=== PATIENT | male | born 1965 | race Caucasian/White ===

== ENCOUNTER 2020-09-23 10:44 | Inpatient (IN) | payer MEDICAID, SELFPAY ==
[2020-09-23] VITALS (9 sets, daily range): BP systolic 147–193; BP diastolic 79–123; PULSE 71–92; RESP 15–40; TEMP 36.3–37; O2SAT 90–98; BMI 32.0
--- NOTE | 2020-09-23 | ECG_ITS ---
Test Reason : SOB Blood Pressure : / mmHG Vent. Rate : 076 BPM Atrial Rate : 076 BPM P-R Int : 154 ms QRS Dur : 098 ms QT Int : 422 ms P-R-T Axes : 064 034 135 degrees QTc Int : 474 ms Sinus rhythm with Premature atrial complexes Possible Left atrial enlargement Left ventricular hypertrophy T wave abnormality, consider lateral ischemia Prolonged QT Abnormal ECG No previous ECGs available Referred By: Generic ED Physician Electronically Signed By:Angel Main
--- NOTE | ~2020-09-23 | US_ITS ---
EXAMINATION: US VENOUS ULTRASOUND WITH DOPPLER LOWER EXTREMITY, BILATERAL CLINICAL INFORMATION: Possible pulmonary embolism COMPARISON: None TECHNIQUE: Ultrasound of the deep veins is performed from the hip to the calf with compression sonography and color and pulse Doppler assessment. Spectral analysis with color-flow imaging is performed. FINDINGS: RIGHT: There is normal venous compression and respiratory variation and augmented flow. The visualized common femoral vein, superficial femoral vein, profunda femoral vein, popliteal vein, and the trifurcation region shows no evidence of deep venous thrombosis. There is no significant popliteal fossa cyst. LEFT: There is normal venous compression and respiratory variation and augmented flow. The visualized common femoral vein, superficial femoral vein, profunda femoral vein, popliteal vein, and the trifurcation region shows no evidence of deep venous thrombosis. There is no significant popliteal fossa cyst. If the patient's symptoms persist, followup ultrasound in 5 days 7 days might be of value to exclude proximal propagation from a non-visualized calf vein. US/US venous duplex LE BI IMPRESSION: No DVT demonstrated in the bilateral lower extremity.
--- NOTE | ~2020-09-23 | CT_ITS ---
EXAMINATION: CT CHEST ANGIOGRAM PE PROTOCOL CLINICAL INFORMATION: , Hypoxia, tachycardia. COMPARISON: None TECHNIQUE: Volumetric imaging was performed through the chest. Reformatted coronal and sagittal imaging was performed. 3-D MIP images performed at a dedicated separate workstation. This CT examination was performed using dose optimization techniques as appropriate, variously including the following: *Automated exposure control *Adjustment of mA and/or kV according to patient size (this includes techniques or standardized protocols for targeted exams where dose is matched to indication/reason for exam; i.e. extremities or head) *Use of iterative reconstruction technique CONTRAST: IV contrast given. DLP: [id number] FINDINGS: PULMONARY ARTERIES: There are no central emboli there are however nonocclusive small filling defect in distal branches questionable artifact versus a small could be old emboli. The radiologist. LINES/TUBES: None LUNGS: Lung Parenchyma: There are patchy groundglass opacities and centrilobular especially lower lobes, in the right clinical setting concerning for possible atypical infection such as interstitial pneumonia including possible cord 19 versus interstitial edema. Lung Nodules:There is no lung mass. Evaluation for nodules is limited on this CT scan given the abnormalities described. AIRWAYS: Trachea and bronchi are normal. PLEURA: Bilateral small pleural effusions.. MEDIASTINUM AND SOPHIA: The visualized thyroid gland is unremarkable. Mildly prominent lymphatic tissue could be reactive. There is no mediastinal mass. VESSELS: Thoracic aorta is normal in size. HEART AND PERICARDIUM: Heart is enlarged, there is a small pericardial effusion. There are coronary calcifications. CHEST WALL, LOWER NECK, SURROUNDING SOFT TISSUES: Normal VISUALIZED ABDOMEN: Unremarkable BONES: The visualized bony thorax is within normal limits. CT/CT angio chest PE protocol IMPRESSION: 1. There are no large central emboli however there are none occlusive peripheral filling defects in secondary and tertiary branches concerning for possible multiple could be old tiny emboli. Versus artifact. No associated infarct of cardiac strain. 2. Patchy groundglass interstitial opacification especially at the upper portion lower lobes concerning for possible atypical infection including possible viral pneumonia. Aspiration pneumonia. Versus interstitial edema. Please correlate with clinical status. 3. Heart is enlarged, there is a small pericardial effusion 4. Bilateral small pleural effusions. This critical result was discussed with Dr. Jernigan by telephone at 09/23/2020 3:44 PM and it was ascertained that the content and urgency of the report was understood at the time of direct communication.
--- NOTE | ~2020-09-23 | XR_ITS ---
EXAMINATION: XR CHEST CLINICAL INFORMATION: Shortness of breath follow-up COMPARISON: Chest x-ray and CTA chest September 23, 2020 TECHNIQUE: Frontal view of the chest was obtained. FINDINGS: Cardiac silhouette is normal in size. The lungs are adequately aerated. No lobar consolidation. No gross pleural effusion identified on this AP radiograph. No pleural effusion. XR/XR chest 1V IMPRESSION: No gross radiographic abnormality.
--- NOTE | ~2020-09-23 | XR_ITS ---
EXAMINATION: XR CHEST CLINICAL INFORMATION: Shortness of breath, hypoxia COMPARISON: None TECHNIQUE: Frontal view of the chest was obtained. Findings; This exam demonstrates some increased opacities in the right greater than left lung. Some possible Caroli's lines on the right. Asymmetric pulmonary edema would need to be considered versus infiltrate. XR/XR chest 1V IMPRESSION: Increased markings right greater than left lung as described. This could represent infiltrate versus asymmetric pulmonary edema. Attention to follow-up. Ill-definition of the right hilum could be enlargement. Again attention to follow-up
[2020-09-23 11:02] LABS: Glucose, Whole Blood 113 mg/dL (60-115)
--- NOTE | 2020-09-23 11:13 | ED_ITS ---
HPI - SOB/Dyspnea General Chief Complaint: Dyspnea Stated Complaint: sob x 2 days Time Seen by Provider: 09/23/20 11:02 Source: patient and EMS Mode of arrival: EMS Limitations: no limitations History of Present Illness HPI Narrative: 55 y/o male with history of HTN and recurrent bronchitis, active smoker x 30 years who presents to the ER c/o SOB and dry cough that started yesterday. He reports his SOB has gradually been getting worse since yesterday. He slept well last night but woke up at 6 am today and couldn't catch his breath so he called 911. He got the [employer] COVID vaccine about 2 months ago. He has no kno wn exposures to COVID recently or any sick contacts. He denies fever, chills, chest pain, N/V/D, abdominal pain. No leg swelling, no orthopnea, no sputum production. MD elicited complaint: shortness of breath and cough Onset (ago): day(s) (1) Timing: constant Severity: severe Exacerbating factors: nothing Relieving factors: nothing Associated symptoms: cough Treatment prior to arrival: oxygen Related Data Home oxygen amount: none Home Medications Medication Instructions Recorded Confirmed No Known Home Meds 09/23/20 09/23/20 Allergies Allergy/AdvReac Type Severity Reaction Status Date / Time No Known Allergies Allergy Verified 09/23/20 10:56 Review of Systems Constitutional: Constitutional: Denies chills, Denies fever(s) and Denies headache(s) Eyes: Eyes: Reports no additional eye complaints ENT: Denies dizziness, Denies otalgia, Denies headache(s), Denies neck pain and Denies sore throat Cardiovascular: Cardiovascular: Denies chest pain, Denies chest pain at rest, Denies chest pain with activity, Denies pedal edema, Denies leg edema, Reports dyspnea and Reports dyspnea on exertion Respiratory: Respiratory: Reports chest congestion, Reports cough, Denies hemoptysis, Denies excessive phlegm production, Denies pain on inspiration, Denies pain with cough, Reports dyspnea, Reports dyspnea on exertion, Denies stridor and Denies wheezing Gastrointestinal: Gastrointestinal: Denies abdominal pain, Denies diarrhea, Denies nausea and Denies vomiting Genitourinary: Genitourinary: Denies dysuria Musculoskeletal: Musculoskeletal: Denies myalgias and Denies neck pain Integumentary/Breasts: Skin/Breast: Denies rash Neurologic: Denies confusion, Denies dizziness and Denies headache(s) Psychiatric: Psychiatric: Denies anxiety and Denies confusion Hematologic/Lymphatic: Hematologic/Lymphatic: Denies easy bleeding and Denies easy bruising Allergic/Immunologic: Allergic/Immunologic: Denies urticaria and Denies wheezing PMFSH Past Medical History Attestation statement: The following information was validated with the patient. Medical History Cigarette smoker Diabetes HTN (hypertension) Social History Social History Alcohol intake: unknown Patient Tobacco Use Status: Current everyday Tobacco user Use of substances other than those prescribed or required for medical reasons: Unknown Advance Directives: No Advance Directives Information Provided: No Physical Exam Vital Signs: Vital Signs: Last Vital Signs Temp 98.1 F 09/23/20 16:24 Pulse 71 09/23/20 16:24 Resp 18 09/23/20 16:24 BP 159/98 H 09/23/20 16:24 Pulse Ox 96 09/23/20 16:24 Body Mass Index 32.0 Const: General: acute distress moderate and respiratory, diaphoretic and ill appearing acutely; No confusion Nutritional Appearance: average body habitus and well nourished Orientation/consciousness: patient oriented x3 and No confusion HENMT: Head: Yes normal to inspection Ears: hearing grossly normal bilaterally General nose exam: Normal external nose present Face and sinus: Yes normal facial exam Mouth: Normal oral and palatal mucosa present, lip normal, tongue normal, oropharynx normal and moist mucous membranes Teeth and gingiva: dentition normal and gingiva normal Throat: Yes posterior oropharynx normal, Yes tonsils normal and Yes uvula midline Eyes: General: appearance normal, both eyes and all related structures Neck: Neck: Yes normal visual inspection, Yes full ROM and Yes no lymphadenopathy Chest: Chest palpation & inspection: normal inspection of the chest and normal palpation of entire chest wall Resp: Effort & Inspection: Actively coughing Quality: dry, labored, respiratory distress and tachypneic Auscultation: crackles on the right at the base and in the mid lung raman and wheezes expiratory wheezes, lower bilaterally and posterior Cardio: Rate: regular rate Rhythm: regular rhythm Heart sounds: S1 normal heart sound present and S2 normal heart sound present GI: Inspection: Yes normal to inspection Palpation (GI): Soft to palpation and nontender Percussion: Yes normal to percussion Auscultation: normal bowel sounds Rectal Exam - Male: Yes deferred Skin: General skin exam: no rashes or lesions noted Neuro: General: patient oriented x3 and No confusion Extrem: General: Yes normal to inspection, Yes full ROM, Yes no joint enlargement, Yes no pedal edema and Yes no calf tenderness Psych: Appearance: grossly normal and well kempt Mental Status: mental status grossly normal Speech and movement: Normal speech and movement present Course Course Course Narrative: 55 y/o male with history of HTN (not on meds), active heavy smoker (no formal dx COPD) presenting with SOB that started yesterday and gradually got worse. Today couldnt no catch his breath so called 911. Associated with dry cough but denies all other complaints. He arrived to the ER tachypenic to 40 with crackles, wheezing and coarseness on exam. Respiratory called for stat neb, IV medrol ordered. CXR, EKG, labs ordered. He is currently on 4L NC saturating 96%. Was 90% for EMS. May require BiPAP if no improvement. Reevaluation(s) Reevaluation #1: Improved RR after neb and steroids. RR stil high 20s but he is starting to feel better. On 4L NC with SpO2 98%. No leukocytosis. BNP 1300 with no history of CHF. Troponin 40, no chest pain. No STEMI on EKG. CXR still pending. Will give dose of IV lasix, start with 20 mg given he is naive. Reevaluation #2: CXR with R>L interstitial markings. ?asymmetrical pulmonary edema. Will get CT scan for further evaluation of heart and lungs. Fio2 weaned to 2L and his respiratory status is improved. Reevaluation #3: CTA with patchy GGO of lower lobes - viral PNA vs pulm edema. COVID test is negative. Also with question of distal subsegmental tiny PEs vs artifact. Will get DDIMER and LE dopplers, hold off on anticoagulation for now, these would not be causing his SOB. Lactic acid went from 2 to 4 most likely due to albuterol nebulizer treatment. He is not septic. He is not hypotensive or having any abdominal pain to suggest mesenteric ischemia. Will hold off on IVF in the setting of acute CHF and plan t o repeat the lactic acid in a few hours. Additional Reevaluation(s): Spoke with patient and his family at length about labs and results, concern for new heart failure and finding the cause of this. Eventually patient is agreeable to admission for further treatment and workup. Spoke with Dr. Manning who will admit the patient. Consultations Consultation #1: Cardiology - Dr. Main - will see patient tomorrow, needs ECHO MDM - SOB/Dyspnea Medical Records Attestation: I reviewed the patient's medical records. Lab Data Attestation: I reviewed the patient's lab results. Result diagrams: 09/23/20 12:15 09/23/20 12:15 Labs: Lab Results 09/23/20 09/23/20 09/23/20 Range/Units 10:54 12:15 12:15 WBC 9.7 (4.8-10.8) X10*3/uL RBC 4.81 (4.60-5.80) X10*6/uL Hgb 14.6 (14.0-18.0) g/dl Hct 46.0 (42-52) % MCV 95.6 (80-98) fL MCH 30.4 (27.0-33.0) pg MCHC 31.7 (31.0-36.0) g/dl RDW 13.6 (11.0-16.0) % Plt Count 196 (160-400) X10*3/uL MPV 12.5 H (9.4-12.4) fL Immature Gran % (Auto) 0.3 (0.0-0.4) % Neut % (Auto) 76.7 H (45-73) % Lymph % (Auto) 16.7 L (20-40) % [place] % (Auto) 4.7 (2-11) % Eos % (Auto) 1.2 (0-4) % Baso % (Auto) 0.4 (0-2) % Lymph # (Auto) 1.6 (1.2-4.9) X10*3/uL [place] # (Auto) 0.5 (0.1-1.2) X10*3/uL Eos # (Auto) 0.1 (0.0-0.4) X10*3/uL Baso # (Auto) 0.0 (0.0-0.2) X10*3/uL Abs Immat Gran (auto) 0.03 (0.00-0.03) X10*3/uL Absolute Neuts (auto) 7.5 (2.0-8.3) X10*3/uL Absolute Nucleated RBC 0.000 (0.0-0.012) X10*3/uL Nucleated RBC % (auto) 0.0 (0.0-0.2) /100WBC PT (9.9-13.0) SEC INR (0.9-1.1) APTT (24.1-38.0) SEC D-Dimer NG/ML VBG pH (7.32-7.43) VBG pCO2 mmHg VBG pO2 mmHg VBG HCO3 (22-26) mmol/L VBG O2 Saturation % VBG Base Excess mmol/L Sodium 143 (135-145) mmol/L Potassium 4.0 (3.3-5.1) mmol/L Chloride 105 (96-108) mmol/L Carbon Dioxide 28 (22-29) mmol/L Anion Gap 14 (12-20) BUN 22 H (9-16) mg/dL Creatinine 1.03 (0.5-1.4) mg/dL Estim Creat Clear Calc 73.9 Estimated GFR > 60 POC Glucose 113 (60-115) mg/dL Random Glucose 141 H (60-115) mg/dL Lactic Acid (0.5-2.0) mmol/L Lactic Acid Fup @ 2Hr (0.5-2.0) mmol/L Calcium 9.4 (8.4-10.2) mg/dL Magnesium 1.6 (1.6-2.6) mg/dL Total Bilirubin 0.3 (0.0-1.0) mg/dL Direct Bilirubin 0.2 (0.0-0.5) mg/dL AST 20 (5-37) U/L ALT 25 (0-40) U/L Alkaline Phosphatase 112 (39-117) U/L Troponin I High Sens (<3.5-35.0) ng/L C-Reactive Protein (< or = 0.50) mg/dL B-Natriuretic Peptide (<100) pg/mL Total Protein 7.3 (6.5-8.0) g/dL Albumin 4.4 (3.5-5.0) g/dL Procalcitonin ng/mL Urine Color Urine Appearance Urine pH (5.0-8.0) Ur Specific [place] (1.005-1.025) Urine Protein (NEG-TRACE) MG/DL Urine Glucose (UA) (NEG) MG/DL Urine Ketones (NEG) MG/DL Urine Blood (NEG) Urine Nitrite (NEG) Ur Leukocyte Esterase (NEG) Urine RBC (0) /HPF Urine WBC (0-4) /HPF Ur Squamous Epith Cells /LPF Urine Bacteria /LPF Urine Mucus /LPF Coronavirus (PCR) (Negative) Influenza Type A (PCR) (Negative) Influenza Type B (PCR) (Negative) RSV RNA Qual (PCR) (Negative) 09/23/20 09/23/20 09/23/20 Range/Units 12:15 12:15 12:15 WBC (4.8-10.8) X10*3/uL RBC (4.60-5.80) X10*6/uL Hgb (14.0-18.0) g/dl Hct (42-52) % MCV (80-98) fL MCH (27.0-33.0) pg MCHC (31.0-36.0) g/dl RDW (11.0-16.0) % Plt Count (160-400) X10*3/uL MPV (9.4-12.4) fL Immature Gran % (Auto) (0.0-0.4) % Neut % (Auto) (45-73) % Lymph % (Auto) (20-40) % [place] % (Auto) (2-11) % Eos % (Auto) (0-4) % Baso % (Auto) (0-2) % Lymph # (Auto) (1.2-4.9) X10*3/uL [place] # (Auto) (0.1-1.2) X10*3/uL Eos # (Auto) (0.0-0.4) X10*3/uL Baso # (Auto) (0.0-0.2) X10*3/uL Abs Immat Gran (auto) (0.00-0.03) X10*3/uL Absolute Neuts (auto) (2.0-8.3) X10*3/uL Absolute Nucleated RBC (0.0-0.012) X10*3/uL Nucleated RBC % (auto) (0.0-0.2) /100WBC PT (9.9-13.0) SEC INR (0.9-1.1) APTT (24.1-38.0) SEC D-Dimer NG/ML VBG pH (7.32-7.43) VBG pCO2 mmHg VBG pO2 mmHg VBG HCO3 (22-26) mmol/L VBG O2 Saturation % VBG Base Excess mmol/L Sodium (135-145) mmol/L Potassium (3.3-5.1) mmol/L Chloride (96-108) mmol/L Carbon Dioxide (22-29) mmol/L Anion Gap (12-20) BUN (9-16) mg/dL Creatinine (0.5-1.4) mg/dL Estim Creat Clear Calc Estimated GFR POC Glucose (60-115) mg/dL Random Glucose (60-115) mg/dL Lactic Acid (0.5-2.0) mmol/L Lactic Acid Fup @ 2Hr (0.5-2.0) mmol/L Calcium (8.4-10.2) mg/dL Magnesium (1.6-2.6) mg/dL Total Bilirubin (0.0-1.0) mg/dL Direct Bilirubin (0.0-0.5) mg/dL AST (5-37) U/L ALT (0-40) U/L Alkaline Phosphatase (39-117) U/L Troponin I High Sens 40.8 H* (<3.5-35.0) ng/L C-Reactive Protein 0.07 (< or = 0.50) mg/dL B-Natriuretic Peptide 1379 H (<100) pg/mL Total Protein (6.5-8.0) g/dL Albumin (3.5-5.0) g/dL Procalcitonin 0.04 ng/mL Urine Color Urine Appearance Urine pH (5.0-8.0) Ur Specific [place] (1.005-1.025) Urine Protein (NEG-TRACE) MG/DL Urine Glucose (UA) (NEG) MG/DL Urine Ketones (NEG) MG/DL Urine Blood (NEG) Urine Nitrite (NEG) Ur Leukocyte Esterase (NEG) Urine RBC (0) /HPF Urine WBC (0-4) /HPF Ur Squamous Epith Cells /LPF Urine Bacteria /LPF Urine Mucus /LPF Coronavirus (PCR) (Negative) Influenza Type A (PCR) (Negative) Influenza Type B (PCR) (Negative) RSV RNA Qual (PCR) (Negative) 09/23/20 09/23/20 09/23/20 Range/Units 12:16 12:19 12:21 WBC (4.8-10.8) X10*3/uL RBC (4.60-5.80) X10*6/uL Hgb (14.0-18.0) g/dl Hct (42-52) % MCV (80-98) fL MCH (27.0-33.0) pg MCHC (31.0-36.0) g/dl RDW (11.0-16.0) % Plt Count (160-400) X10*3/uL MPV (9.4-12.4) fL Immature Gran % (Auto) (0.0-0.4) % Neut % (Auto) (45-73) % Lymph % (Auto) (20-40) % [place] % (Auto) (2-11) % Eos % (Auto) (0-4) % Baso % (Auto) (0-2) % Lymph # (Auto) (1.2-4.9) X10*3/uL [place] # (Auto) (0.1-1.2) X10*3/uL Eos # (Auto) (0.0-0.4) X10*3/uL Baso # (Auto) (0.0-0.2) X10*3/uL Abs Immat Gran (auto) (0.00-0.03) X10*3/uL Absolute Neuts (auto) (2.0-8.3) X10*3/uL Absolute Nucleated RBC (0.0-0.012) X10*3/uL Nucleated RBC % (auto) (0.0-0.2) /100WBC PT (9.9-13.0) SEC INR (0.9-1.1) APTT (24.1-38.0) SEC D-Dimer NG/ML VBG pH (7.32-7.43) VBG pCO2 mmHg VBG pO2 mmHg VBG HCO3 (22-26) mmol/L VBG O2 Saturation % VBG Base Excess mmol/L Sodium (135-145) mmol/L Potassium (3.3-5.1) mmol/L Chloride (96-108) mmol/L Carbon Dioxide (22-29) mmol/L Anion Gap (12-20) BUN (9-16) mg/dL Creatinine (0.5-1.4) mg/dL Estim Creat Clear Calc Estimated GFR POC Glucose (60-115) mg/dL Random Glucose (60-115) mg/dL Lactic Acid 2.1 H* (0.5-2.0) mmol/L Lactic Acid Fup @ 2Hr (0.5-2.0) mmol/L Calcium (8.4-10.2) mg/dL Magnesium (1.6-2.6) mg/dL Total Bilirubin (0.0-1.0) mg/dL Direct Bilirubin (0.0-0.5) mg/dL AST (5-37) U/L ALT (0-40) U/L Alkaline Phosphatase (39-117) U/L Troponin I High Sens (<3.5-35.0) ng/L C-Reactive Protein (< or = 0.50) mg/dL B-Natriuretic Peptide (<100) pg/mL Total Protein (6.5-8.0) g/dL Albumin (3.5-5.0) g/dL Procalcitonin ng/mL Urine Color YELLOW Urine Appearance CLEAR Urine pH 6.0 (5.0-8.0) Ur Specific [place] 1.020 (1.005-1.025) Urine Protein TRACE (NEG-TRACE) MG/DL Urine Glucose (UA) NEG (NEG) MG/DL Urine Ketones NEG (NEG) MG/DL Urine Blood TRACE (NEG) Urine Nitrite NEG (NEG) Ur Leukocyte Esterase NEG (NEG) Urine RBC 1-4 (0) /HPF Urine WBC 0-2 (0-4) /HPF Ur Squamous Epith Cells TRACE /LPF Urine Bacteria NONE /LPF Urine Mucus TRACE /LPF Coronavirus (PCR) NEGATIVE (Negative) Influenza Type A (PCR) NEGATIVE (Negative) Influenza Type B (PCR) NEGATIVE (Negative) RSV RNA Qual (PCR) NEGATIVE (Negative) 09/23/20 09/23/20 09/23/20 Range/Units 13:31 14:46 16:17 WBC (4.8-10.8) X10*3/uL RBC (4.60-5.80) X10*6/uL Hgb (14.0-18.0) g/dl Hct (42-52) % MCV (80-98) fL MCH (27.0-33.0) pg MCHC (31.0-36.0) g/dl RDW (11.0-16.0) % Plt Count (160-400) X10*3/uL MPV (9.4-12.4) fL Immature Gran % (Auto) (0.0-0.4) % Neut % (Auto) (45-73) % Lymph % (Auto) (20-40) % [place] % (Auto) (2-11) % Eos % (Auto) (0-4) % Baso % (Auto) (0-2) % Lymph # (Auto) (1.2-4.9) X10*3/uL [place] # (Auto) (0.1-1.2) X10*3/uL Eos # (Auto) (0.0-0.4) X10*3/uL Baso # (Auto) (0.0-0.2) X10*3/uL Abs Immat Gran (auto) (0.00-0.03) X10*3/uL Absolute Neuts (auto) (2.0-8.3) X10*3/uL Absolute Nucleated RBC (0.0-0.012) X10*3/uL Nucleated RBC % (auto) (0.0-0.2) /100WBC PT (9.9-13.0) SEC INR (0.9-1.1) APTT (24.1-38.0) SEC D-Dimer NG/ML VBG pH 7.42 (7.32-7.43) VBG pCO2 37 mmHg VBG pO2 63 mmHg VBG HCO3 24 (22-26) mmol/L VBG O2 Saturation 90.0 % VBG Base Excess 0.5 mmol/L Sodium (135-145) mmol/L Potassium (3.3-5.1) mmol/L Chloride (96-108) mmol/L Carbon Dioxide (22-29) mmol/L Anion Gap (12-20) BUN (9-16) mg/dL Creatinine (0.5-1.4) mg/dL Estim Creat Clear Calc Estimated GFR POC Glucose (60-115) mg/dL Random Glucose (60-115) mg/dL Lactic Acid (0.5-2.0) mmol/L Lactic Acid Fup @ 2Hr 4.2 H* (0.5-2.0) mmol/L Calcium (8.4-10.2) mg/dL Magnesium (1.6-2.6) mg/dL Total Bilirubin (0.0-1.0) mg/dL Direct Bilirubin (0.0-0.5) mg/dL AST (5-37) U/L ALT (0-40) U/L Alkaline Phosphatase (39-117) U/L Troponin I High Sens 33.1 (<3.5-35.0) ng/L C-Reactive Protein (< or = 0.50) mg/dL B-Natriuretic Peptide (<100) pg/mL Total Protein (6.5-8.0) g/dL Albumin (3.5-5.0) g/dL Procalcitonin ng/mL Urine Color Urine Appearance Urine pH (5.0-8.0) Ur Specific [place] (1.005-1.025) Urine Protein (NEG-TRACE) MG/DL Urine Glucose (UA) (NEG) MG/DL Urine Ketones (NEG) MG/DL Urine Blood (NEG) Urine Nitrite (NEG) Ur Leukocyte Esterase (NEG) Urine RBC (0) /HPF Urine WBC (0-4) /HPF Ur Squamous Epith Cells /LPF Urine Bacteria /LPF Urine Mucus /LPF Coronavirus (PCR) (Negative) Influenza Type A (PCR) (Negative) Influenza Type B (PCR) (Negative) RSV RNA Qual (PCR) (Negative) 09/23/20 Range/Units 16:17 WBC (4.8-10.8) X10*3/uL RBC (4.60-5.80) X10*6/uL Hgb (14.0-18.0) g/dl Hct (42-52) % MCV (80-98) fL MCH (27.0-33.0) pg MCHC (31.0-36.0) g/dl RDW (11.0-16.0) % Plt Count (160-400) X10*3/uL MPV (9.4-12.4) fL Immature Gran % (Auto) (0.0-0.4) % Neut % (Auto) (45-73) % Lymph % (Auto) (20-40) % [place] % (Auto) (2-11) % Eos % (Auto) (0-4) % Baso % (Auto) (0-2) % Lymph # (Auto) (1.2-4.9) X10*3/uL [place] # (Auto) (0.1-1.2) X10*3/uL Eos # (Auto) (0.0-0.4) X10*3/uL Baso # (Auto) (0.0-0.2) X10*3/uL Abs Immat Gran (auto) (0.00-0.03) X10*3/uL Absolute Neuts (auto) (2.0-8.3) X10*3/uL Absolute Nucleated RBC (0.0-0.012) X10*3/uL Nucleated RBC % (auto) (0.0-0.2) /100WBC PT 12.4 (9.9-13.0) SEC INR 1.1 (0.9-1.1) APTT 23.9 L (24.1-38.0) SEC D-Dimer 231 NG/ML VBG pH (7.32-7.43) VBG pCO2 mmHg VBG pO2 mmHg VBG HCO3 (22-26) mmol/L VBG O2 Saturation % VBG Base Excess mmol/L Sodium (135-145) mmol/L Potassium (3.3-5.1) mmol/L Chloride (96-108) mmol/L Carbon Dioxide (22-29) mmol/L Anion Gap (12-20) BUN (9-16) mg/dL Creatinine (0.5-1.4) mg/dL Estim Creat Clear Calc Estimated GFR POC Glucose (60-115) mg/dL Random Glucose (60-115) mg/dL Lactic Acid (0.5-2.0) mmol/L Lactic Acid Fup @ 2Hr (0.5-2.0) mmol/L Calcium (8.4-10.2) mg/dL Magnesium (1.6-2.6) mg/dL Total Bilirubin (0.0-1.0) mg/dL Direct Bilirubin (0.0-0.5) mg/dL AST (5-37) U/L ALT (0-40) U/L Alkaline Phosphatase (39-117) U/L Troponin I High Sens (<3.5-35.0) ng/L C-Reactive Protein (< or = 0.50) mg/dL B-Natriuretic Peptide (<100) pg/mL Total Protein (6.5-8.0) g/dL Albumin (3.5-5.0) g/dL Procalcitonin ng/mL Urine Color Urine Appearance Urine pH (5.0-8.0) Ur Specific [place] (1.005-1.025) Urine Protein (NEG-TRACE) MG/DL Urine Glucose (UA) (NEG) MG/DL Urine Ketones (NEG) MG/DL Urine Blood (NEG) Urine Nitrite (NEG) Ur Leukocyte Esterase (NEG) Urine RBC (0) /HPF Urine WBC (0-4) /HPF Ur Squamous Epith Cells /LPF Urine Bacteria /LPF Urine Mucus /LPF Coronavirus (PCR) (Negative) Influenza Type A (PCR) (Negative) Influenza Type B (PCR) (Negative) RSV RNA Qual (PCR) (Negative) ECG Data Attestation: I personally reviewed and interpreted this ECG as follows: ECG interpretation date: 09/23/20 ECG interpretation time: 14:30 Interpretation: normal sinus rhythm, HR 76 bpm, t-wave inversions in leads I, II, aVL. LVH. no ST segment elevations. Critical Care Time Critical Care Time Critical Care Time: Yes Total Critical Care Time: 60 Attestation: I have personally provided critical care time exclusive of time spent on separately billable procedures. Time includes review of lab data, radiology results, discussion with consultants, and monitoring for potential decompensation. Intervention performed as documented. Discharge Plan Discharge Clinical Impression: Acute heart failure, Acute respiratory failure with hypoxia, Elevated lactic acid level Patient Disposition: Admitted As Inpatient Prescriptions: No Action No Known Home Meds RF: 0
[2020-09-23] MEDS: Albuterol Sulfate (0.083%) 2.5 MG/3 ML VIAL.NEB 10 MG INHALE (11:18)
[2020-09-23] MEDS: methylPREDNISolone Sod Succ 125 MG/2 ML VIAL IVPUSH (12:01)
[2020-09-23 12:31] LABS: MANUAL DIFF FLAG NO
[2020-09-23 12:34] LABS: Basophils Percent Auto 0.4 % (0-2); Eosinophils Absolute Auto 0.1 X10*3/uL (0.0-0.4); Eosinophils Percent Auto 1.2 % (0-4); Hemoglobin 14.6 g/dl (14.0-18.0); Imm Gran Abs Auto 0.03 X10*3/uL (0.00-0.03); Imm Gran Pct Auto 0.3 % (0.0-0.4); Lymphocytes Absolute Auto 1.6 X10*3/uL (1.2-4.9); Lymphocytes Percent Auto 16.7 % (20-40); Mean Corpuscular HGB Conc 31.7 g/dl (31.0-36.0); Mean Corpuscular Hemoglobin 30.4 pg (27.0-33.0); Mean Corpuscular Volume 95.6 fL (80-98); Mean Platelet Volume 12.5 fL (9.4-12.4); Monocytes Absolute Auto 0.5 X10*3/uL (0.1-1.2); Monocytes Percent Auto 4.7 % (2-11); Neutrophils Absolute Auto 7.5 X10*3/uL (2.0-8.3); Neutrophils Percent Auto 76.7 % (45-73); Platelet Count 196 X10*3/uL (160-400); Red Blood Count 4.81 X10*6/uL (4.60-5.80); Red Cell Distribution Width 13.6 % (11.0-16.0); White Blood Count 9.7 X10*3/uL (4.8-10.8)
[2020-09-23 12:43] LABS: Appearance Urine CLEAR; Color Urine YELLOW; Glucose Urine UA NEG (NEG); Leukocyte Esterase Urine NEG (NEG); Nitrite Urine NEG (NEG); UACC Culture Trigger NO; Urine Blood TRACE (NEG); Urine Ketones NEG (NEG); Urine Protein TRACE MG/DL (NEG-TRACE)
[2020-09-23 12:51] LABS: Mucus Urine TRACE /LPF; Squamous Epithelial Cell Urine TRACE /LPF; WBC Urine 0-2 /HPF (0-4)
[2020-09-23 12:59] LABS: Lactic Acid 2.1 mmol/L (0.5-2.0)
[2020-09-23 13:01] LABS: C Reactive Protein 0.07 mg/dL (< or = 0.50)
[2020-09-23 13:06] LABS: Alanine Aminotransferase 25 U/L (0-40); Albumin Level 4.4 g/dL (3.5-5.0); Alkaline Phosphatase 112 U/L (39-117); Anion Gap 14 (12-20); Aspartate Amino Transferase 20 U/L (5-37); Bilirubin Direct 0.2 mg/dL (0.0-0.5); Bilirubin Total 0.3 mg/dL (0.0-1.0); Blood Urea Nitrogen 22 mg/dL (9-16); Calcium 9.4 mg/dL (8.4-10.2); Carbon Dioxide 28 mmol/L (22-29); Chloride 105 mmol/L (96-108); Creatinine Clr Calc Pharmacy 73.9; Estimated Glomerular Filt Rate > 60; Glucose Random 141 mg/dL (60-115); Magnesium 1.6 mg/dL (1.6-2.6); Sodium 143 mmol/L (135-145); Total Protein 7.3 g/dL (6.5-8.0)
[2020-09-23 13:11] LABS: B Type Natriuretic Peptide 1379 pg/mL (<100); Troponin-I High Sensitivity 40.8 ng/L (<3.5-35.0)
[2020-09-23 13:17] LABS: Influenza A PCR NEGATIVE (Negative); Influenza B PCR NEGATIVE (Negative); Resp Syncy Virus RNA Qual PCR NEGATIVE (Negative); SARS COV2 PCR INHOUSE NEGATIVE (Negative)
[2020-09-23 13:24] LABS: Procalcitonin 0.04 ng/mL
[2020-09-23 13:38] LABS: Venous Blood Gas Refer to POC result
[2020-09-23 13:39] LABS: VBG Base Excess 0.5 mmol/L; VBG HCO3 24 mmol/L (22-26); VBG pCO2 37 mmHg; VBG pH 7.42 (7.32-7.43); VBG pO2 63 mmHg
[2020-09-23] MEDS: Furosemide 20 MG/2 ML VIAL IVPUSH (13:55)
[2020-09-23] MEDS: 0.9 % Sodium Chloride 1,000 ML 999 ML IVCONT (13:55)
[2020-09-23 14:27] LABS: Reflex Lactate? Lactic Acid Added
[2020-09-23] MEDS: iohexoL 350 MG/ML 100 ML INFUS..BTL 85 ML IV (15:12)
[2020-09-23 15:21] LABS: ~Lactic Acid-LAB USE ONLY 4.2 mmol/L (0.5-2.0)
[2020-09-23 16:32] LABS: INTERNATIONAL NORM RATIO 1.1 (0.9-1.1); Prothrombin Time 12.4 SEC (9.9-13.0)
[2020-09-23 16:35] LABS: D Dimer 231 NG/ML
[2020-09-23 16:38] LABS: Partial Thromboplastin Time 23.9 SEC (24.1-38.0)
[2020-09-23 16:48] LABS: Reflex Lactate? 2 Y
[2020-09-23 16:58] LABS: Troponin-I High Sensitivity 33.1 ng/L (<3.5-35.0)
--- NOTE | 2020-09-23 17:30 | PM.IMHP ---
History of Present Illness Date of Service: 09/23/20 Chief Complaint: sob 55M non compliant, history of enlarged heart reports 2 days of shortness of breath, worse on exertion, positive orthopnea, denies chest pain, denies n/v/d, denies fever/chills. daughter reports patient has had multiple similar episodes. 4 years ptp was told he had an enlarged heart , but did not follow up. currently not on meds. history of cocaine, but reports abstienance. in ED found to have elevated bnp, CTA with bilateral patchy ground glass opacities, cardiomegaly, small pericardial effusion, EKG with LVH. given lasix and symptoms have improved. Review of Systems Review of Systems: Constitutional: Denies fever, denies Chills Eyes: denies blurry vision ENT: denies sore throat CVS: denies chest pain Respiratory: dyspnea GI: no abdominal pain : denies dysuria MSK: denies neck pain Skin: denies rash Neuro: denies specific motor weakness Psych: denies suicidal ideation Endocrine: denies heat/cold intolerance Hematologic: denies easy bleeding Allergy: denies hives PMFSH Medical History Cardiomyopathy Cigarette smoker Diabetes HTN (hypertension) Family history: reviewed and not pertinent Social History Alcohol intake: unknown Patient Tobacco Use Status: Current everyday Tobacco user Use of substances other than those prescribed or required for medical reasons: Unknown Advance Directives: No Advance Directives Information Provided: No Meds Allergies Allergy/AdvReac Type Severity Reaction Status Date / Time No Known Allergies Allergy Verified 09/23/20 10:56 Active Medications: Current Medications Generic Name Dose Route Start Last Admin Trade Name Freq PRN Reason Stop Dose Admin Enoxaparin Sodium 40 mg 09/23/20 17:30 Enoxaparin Sodium 40 Mg/0.4 Ml Syringe SUBCUT Q24H [facility] Furosemide 40 mg 09/23/20 18:00 Furosemide 40 Mg/4 Ml Vial IVPUSH BID@[id number],1800 [facility] Protocol Sodium Chloride 3 ml 09/24/20 00:00 0.9 % Sodium Chloride Flush 3 Ml Syringe IVFLUSH QSHIFT [facility] Home Medications Medication Instructions Recorded Confirmed Last Taken Type No Known Home Meds 09/23/20 09/23/20 Unknown History Physical Exam Vital Signs and Narrative: Vital Signs: Last Vital Signs Temp 98.1 F 09/23/20 16:24 Pulse 71 09/23/20 16:24 Resp 18 09/23/20 16:24 BP 159/98 H 09/23/20 16:24 Pulse Ox 96 09/23/20 16:24 Body Mass Index 32.0 General: no acute distress HEENT: atraumatic Neck: normal to visual inspection CVS: S1, S2, RRR, +jvd, no edema Resp: Crackles Chest: non tender GI: soft, non tender, non distended : no CVA tenderness Skin: no rashes Extremities: no edema Neuro: Oriented X3, grossly intact Psych: cooperative Results Labs CBC and Chem 7: 09/23/20 12:15 09/23/20 12:15 Labs: Laboratory Results - last 24 hr 09/23/20 09/23/20 09/23/20 10:54 12:15 12:15 MCV 95.6 MCH 30.4 MCHC 31.7 RDW 13.6 Plt Count 196 MPV 12.5 H Immature Gran % (Auto) 0.3 Neut % (Auto) 76.7 H Lymph % (Auto) 16.7 L Woodson % (Auto) 4.7 Eos % (Auto) 1.2 Baso % (Auto) 0.4 Lymph # (Auto) 1.6 Woodson # (Auto) 0.5 Eos # (Auto) 0.1 Baso # (Auto) 0.0 Abs Immat Gran (auto) 0.03 Absolute Neuts (auto) 7.5 Absolute Nucleated RBC 0.000 Nucleated RBC % (auto) 0.0 PT INR APTT D-Dimer VBG pH VBG pCO2 VBG pO2 VBG HCO3 VBG O2 Saturation VBG Base Excess Anion Gap 14 Estim Creat Clear Calc 73.9 Estimated GFR > 60 POC Glucose 113 Random Glucose 141 H Lactic Acid Lactic Acid Fup @ 2Hr Calcium 9.4 Magnesium 1.6 Total Bilirubin 0.3 Direct Bilirubin 0.2 AST 20 ALT 25 Alkaline Phosphatase 112 Troponin I High Sens C-Reactive Protein B-Natriuretic Peptide Total Protein 7.3 Albumin 4.4 Procalcitonin Urine Color Urine Appearance Urine pH Ur Specific [place] Urine Protein Urine Glucose (UA) Urine Ketones Urine Blood Urine Nitrite Ur Leukocyte Esterase Urine RBC Urine WBC Ur Squamous Epith Cells Urine Bacteria Urine Mucus Coronavirus (PCR) Influenza Type A (PCR) Influenza Type B (PCR) RSV RNA Qual (PCR) 09/23/20 09/23/20 09/23/20 12:15 12:15 12:15 MCV MCH MCHC RDW Plt Count MPV Immature Gran % (Auto) Neut % (Auto) Lymph % (Auto) Woodson % (Auto) Eos % (Auto) Baso % (Auto) Lymph # (Auto) [place]son # (Auto) Eos # (Auto) Baso # (Auto) Abs Immat Gran (auto) Absolute Neuts (auto) Absolute Nucleated RBC Nucleated RBC % (auto) PT INR APTT D-Dimer VBG pH VBG pCO2 VBG pO2 VBG HCO3 VBG O2 Saturation VBG Base Excess Anion Gap Estim Creat Clear Calc Estimated GFR POC Glucose Random Glucose Lactic Acid Lactic Acid Fup @ 2Hr Calcium Magnesium Total Bilirubin Direct Bilirubin AST ALT Alkaline Phosphatase Troponin I High Sens 40.8 H* C-Reactive Protein 0.07 B-Natriuretic Peptide 1379 H Total Protein Albumin Procalcitonin 0.04 Urine Color Urine Appearance Urine pH Ur Specific [place] Urine Protein Urine Glucose (UA) Urine Ketones Urine Blood Urine Nitrite Ur Leukocyte Esterase Urine RBC Urine WBC Ur Squamous Epith Cells Urine Bacteria Urine Mucus Coronavirus (PCR) Influenza Type A (PCR) Influenza Type B (PCR) RSV RNA Qual (PCR) 09/23/20 09/23/20 09/23/20 12:16 12:19 12:21 MCV MCH MCHC RDW Plt Count MPV Immature Gran % (Auto) Neut % (Auto) Lymph % (Auto) [place] % (Auto) Eos % (Auto) Baso % (Auto) Lymph # (Auto) [place]son # (Auto) Eos # (Auto) Baso # (Auto) Abs Immat Gran (auto) Absolute Neuts (auto) Absolute Nucleated RBC Nucleated RBC % (auto) PT INR APTT D-Dimer VBG pH VBG pCO2 VBG pO2 VBG HCO3 VBG O2 Saturation VBG Base Excess Anion Gap Estim Creat Clear Calc Estimated GFR POC Glucose Random Glucose Lactic Acid 2.1 H* Lactic Acid Fup @ 2Hr Calcium Magnesium Total Bilirubin Direct Bilirubin AST ALT Alkaline Phosphatase Troponin I High Sens C-Reactive Protein B-Natriuretic Peptide Total Protein Albumin Procalcitonin Urine Color YELLOW Urine Appearance CLEAR Urine pH 6.0 Ur Specific [place] 1.020 Urine Protein TRACE Urine Glucose (UA) NEG Urine Ketones NEG Urine Blood TRACE Urine Nitrite NEG Ur Leukocyte Esterase NEG Urine RBC 1-4 Urine WBC 0-2 Ur Squamous Epith Cells TRACE Urine Bacteria NONE Urine Mucus TRACE Coronavirus (PCR) NEGATIVE Influenza Type A (PCR) NEGATIVE Influenza Type B (PCR) NEGATIVE RSV RNA Qual (PCR) NEGATIVE 09/23/20 09/23/20 09/23/20 13:31 14:46 16:17 MCV MCH MCHC RDW Plt Count MPV Immature Gran % (Auto) Neut % (Auto) Lymph % (Auto) [place] % (Auto) Eos % (Auto) Baso % (Auto) Lymph # (Auto) [place] # (Auto) Eos # (Auto) Baso # (Auto) Abs Immat Gran (auto) Absolute Neuts (auto) Absolute Nucleated RBC Nucleated RBC % (auto) PT INR APTT D-Dimer VBG pH 7.42 VBG pCO2 37 VBG pO2 63 VBG HCO3 24 VBG O2 Saturation 90.0 VBG Base Excess 0.5 Anion Gap Estim Creat Clear Calc Estimated GFR POC Glucose Random Glucose Lactic Acid Lactic Acid Fup @ 2Hr 4.2 H* Calcium Magnesium Total Bilirubin Direct Bilirubin AST ALT Alkaline Phosphatase Troponin I High Sens 33.1 C-Reactive Protein B-Natriuretic Peptide Total Protein Albumin Procalcitonin Urine Color Urine Appearance Urine pH Ur Specific [place] Urine Protein Urine Glucose (UA) Urine Ketones Urine Blood Urine Nitrite Ur Leukocyte Esterase Urine RBC Urine WBC Ur Squamous Epith Cells Urine Bacteria Urine Mucus Coronavirus (PCR) Influenza Type A (PCR) Influenza Type B (PCR) RSV RNA Qual (PCR) 09/23/20 16:17 MCV MCH MCHC RDW Plt Count MPV Immature Gran % (Auto) Neut % (Auto) Lymph % (Auto) [place] % (Auto) Eos % (Auto) Baso % (Auto) Lymph # (Auto) [place] # (Auto) Eos # (Auto) Baso # (Auto) Abs Immat Gran (auto) Absolute Neuts (auto) Absolute Nucleated RBC Nucleated RBC % (auto) PT 12.4 INR 1.1 APTT 23.9 L D-Dimer 231 VBG pH VBG pCO2 VBG pO2 VBG HCO3 VBG O2 Saturation VBG Base Excess Anion Gap Estim Creat Clear Calc Estimated GFR POC Glucose Random Glucose Lactic Acid Lactic Acid Fup @ 2Hr Calcium Magnesium Total Bilirubin Direct Bilirubin AST ALT Alkaline Phosphatase Troponin I High Sens C-Reactive Protein B-Natriuretic Peptide Total Protein Albumin Procalcitonin Urine Color Urine Appearance Urine pH Ur Specific [place] Urine Protein Urine Glucose (UA) Urine Ketones Urine Blood Urine Nitrite Ur Leukocyte Esterase Urine RBC Urine WBC Ur Squamous Epith Cells Urine Bacteria Urine Mucus Coronavirus (PCR) Influenza Type A (PCR) Influenza Type B (PCR) RSV RNA Qual (PCR) Imaging Radiologist's Impressions: Impressions Chest X-Ray 09/23/20 11:02 IMPRESSION: Increased markings right greater than left lung as described. This could represent infiltrate versus asymmetric pulmonary edema. Attention to follow-up. Ill-definition of the right hilum could be enlargement. Again attention to follow-up Chest CTA 09/23/20 13:49 IMPRESSION: 1. There are no large central emboli however there are none occlusive peripheral filling defects in secondary and tertiary branches concerning for possible multiple could be old tiny emboli. Versus artifact. No associated infarct of cardiac strain. 2. Patchy groundglass interstitial opacification especially at the upper portion lower lobes concerning for possible atypical infection including possible viral pneumonia. Aspiration pneumonia. Versus interstitial edema. Please correlate with clinical status. 3. Heart is enlarged, there is a small pericardial effusion 4. Bilateral small pleural effusions. This critical result was discussed with Dr. Jernigan by telephone at 09/23/2020 3:44 PM and it was ascertained that the content and urgency of the report was understood at the time of direct communication. Venous Duplex 09/23/20 15:58 IMPRESSION: No DVT demonstrated in the bilateral lower extremity. Assessment and Plan (1) CHF exacerbation: Status: Acute 55M presented with sob, found to have acute chf acute on chronic CHF unspecified suspect history of cardiomyopathy, check echo IV lasix cardio eval HTN started losartan, amlodipine documented DM check A1c lactic acidosis not due to sepsis from chf and nebulizer Quality Stroke Does the patient have a stroke diagnosis?: No VTE Prior VTE?: No VTE Risk Level:: Medical - moderate - high VTE Device Contraindication: Treatment Not Indicated VTE Drug Contraindication: N/A - Med Ordered
[2020-09-23 18:44] LABS: ~Lactic Acid-LAB USE ONLY 5.7 mmol/L (0.5-2.0)
[2020-09-23] MEDS: Furosemide 40 MG/4 ML VIAL IVPUSH (19:40)
[2020-09-23] MEDS: 0.9 % Sodium Chloride Flush 3 ML SYRINGE IVFLUSH (19:41)
[2020-09-23 21:01] LABS: Amphetamine Screen Urine Not Detected (Not Detect); Barbiturates, Urine Not Detected (Not Detect); Benzodiazepines Screen Urine Not Detected (Not Detect); Cannabinoid Screen Urine Not Detected (Not Detect); Cocaine Screen Urine POSITIVE (Not Detect); Opiate Screen Urine Not Detected (Not Detect); Phencyclidine Screen Urine Not Detected (Not Detect)
--- NOTE | 2020-09-23 21:33 | PC.RT ---
Pt refused ABG at 9:30 pm on 09/23/2020
[2020-09-24] VITALS (8 sets, daily range): BP systolic 127–156; BP diastolic 74–97; PULSE 57–78; RESP 17–20; TEMP 36.4–36.7; O2SAT 94–96; BMI 31.3
[2020-09-24 06:15] LABS: Hematocrit 40.4 % (42-52); Hemoglobin 13.3 g/dl (14.0-18.0); Mean Corpuscular HGB Conc 32.9 g/dl (31.0-36.0); Mean Corpuscular Hemoglobin 30.2 pg (27.0-33.0); Mean Corpuscular Volume 91.6 fL (80-98); Mean Platelet Volume 11.7 fL (9.4-12.4); Platelet Count 213 X10*3/uL (160-400); Red Blood Count 4.41 X10*6/uL (4.60-5.80); Red Cell Distribution Width 13.5 % (11.0-16.0); White Blood Count 20.3 X10*3/uL (4.8-10.8)
[2020-09-24 06:32] LABS: Lactic Acid 2.4 mmol/L (0.5-2.0)
[2020-09-24 06:43] LABS: Estimated Average Glucose 126 mg/dL
[2020-09-24 06:47] LABS: Anion Gap 16 (12-20); Blood Urea Nitrogen 31 mg/dL (9-16); Calcium 9.2 mg/dL (8.4-10.2); Carbon Dioxide 31 mmol/L (22-29); Chloride 98 mmol/L (96-108); Creatinine Clr Calc Pharmacy 54.2; Estimated Glomerular Filt Rate 53; Glucose Random 116 mg/dL (60-115); Potassium 3.2 mmol/L (3.3-5.1); Sodium 142 mmol/L (135-145)
[2020-09-24 08:05] LABS: Reflex Lactate? Lactic Acid Added
[2020-09-24] MEDS: amLODIPine Besylate 5 MG TABLET PO (08:16)
[2020-09-24] MEDS: Losartan Potassium 50 MG TABLET PO (08:16)
[2020-09-24] MEDS: 0.9 % Sodium Chloride Flush 3 ML SYRINGE IVFLUSH ×3 (08:16→21:10)
[2020-09-24 09:40] LABS: ~Lactic Acid-LAB USE ONLY 2.6 mmol/L (0.5-2.0)
--- NOTE | 2020-09-24 09:48 | HO.PM.IMPN ---
Subjective Subjective Date of Service: 09/24/20 Interval History: sob improved Constitutional Constitutional: Reports no additional constitutional complaints Eyes Eyes: Reports no additional eye complaints Physical Exam Vital Signs: Vital Signs: Last Vital Signs Temp 98.0 F 09/24/20 08:00 Pulse 72 09/24/20 08:16 Resp 20 09/24/20 08:00 BP 156/97 H 09/24/20 08:16 Pulse Ox 94 09/24/20 08:00 Body Mass Index 31.3 General: AO X 3, no acute distress Resp: fine left basilar crackles CVS: S1,S2,RRR GI: soft, non tender, non distended Neuro: motor grossly intact Psych: appropriate affect Objective Data Current Medications Generic Name Dose Route Start Last Admin Trade Name Laurentq PRN Reason Stop Dose Admin Amlodipine Besylate 5 mg 09/24/20 09:00 09/24/20 08:16 Amlodipine Besylate 5 Mg Tablet PO 5 mg DAILY [facility] Administration Protocol Enoxaparin Sodium 40 mg 09/23/20 18:00 09/23/20 19:41 Enoxaparin Sodium 40 Mg/0.4 Ml Syringe SUBCUT Not Given Q24H [facility] Losartan Potassium 50 mg 09/24/20 09:00 09/24/20 08:16 Losartan Potassium 50 Mg Tablet PO 50 mg DAILY [facility] Administration Protocol Sodium Chloride 3 ml 09/24/20 00:00 09/24/20 08:16 0.9 % Sodium Chloride Flush 3 Ml Syringe IVFLUSH 3 ml QSHIFT [facility] Administration Labs CBC & Chem 7: 09/24/20 05:55 09/24/20 05:55 Labs: Laboratory Results - last 24 hr 09/23/20 09/23/20 09/23/20 10:54 12:15 12:15 MCV 95.6 MCH 30.4 MCHC 31.7 RDW 13.6 Plt Count 196 MPV 12.5 H Immature Gran % (Auto) 0.3 Neut % (Auto) 76.7 H Lymph % (Auto) 16.7 L [place] % (Auto) 4.7 Eos % (Auto) 1.2 Baso % (Auto) 0.4 Lymph # (Auto) 1.6 [place] # (Auto) 0.5 Eos # (Auto) 0.1 Baso # (Auto) 0.0 Abs Immat Gran (auto) 0.03 Absolute Neuts (auto) 7.5 Absolute Nucleated RBC 0.000 Nucleated RBC % (auto) 0.0 PT INR APTT D-Dimer VBG pH VBG pCO2 VBG pO2 VBG HCO3 VBG O2 Saturation VBG Base Excess Anion Gap 14 Estim Creat Clear Calc 73.9 Estimated GFR > 60 POC Glucose 113 Random Glucose 141 H Estimat Average Glucose Hemoglobin A1c % Lactic Acid Lactic Acid Fup @ 2Hr Lactic Acid Fup @ 4Hr Calcium 9.4 Magnesium 1.6 Total Bilirubin 0.3 Direct Bilirubin 0.2 AST 20 ALT 25 Alkaline Phosphatase 112 Troponin I High Sens C-Reactive Protein B-Natriuretic Peptide Total Protein 7.3 Albumin 4.4 Procalcitonin Urine Color Urine Appearance Urine pH Ur Specific [place] Urine Protein Urine Glucose (UA) Urine Ketones Urine Blood Urine Nitrite Ur Leukocyte Esterase Urine RBC Urine WBC Ur Squamous Epith Cells Urine Bacteria Urine Mucus Urine Opiates Screen Ur Barbiturates Screen Ur Phencyclidine Scrn Ur Amphetamines Screen U Benzodiazepines Scrn Urine Cocaine Screen U Marijuana (THC) Screen Coronavirus (PCR) Influenza Type A (PCR) Influenza Type B (PCR) RSV RNA Qual (PCR) 09/23/20 09/23/20 09/23/20 12:15 12:15 12:15 MCV MCH MCHC RDW Plt Count MPV Immature Gran % (Auto) Neut % (Auto) Lymph % (Auto) [place] % (Auto) Eos % (Auto) Baso % (Auto) Lymph # (Auto) [place] # (Auto) Eos # (Auto) Baso # (Auto) Abs Immat Gran (auto) Absolute Neuts (auto) Absolute Nucleated RBC Nucleated RBC % (auto) PT INR APTT D-Dimer VBG pH VBG pCO2 VBG pO2 VBG HCO3 VBG O2 Saturation VBG Base Excess Anion Gap Estim Creat Clear Calc Estimated GFR POC Glucose Random Glucose Estimat Average Glucose Hemoglobin A1c % Lactic Acid Lactic Acid Fup @ 2Hr Lactic Acid Fup @ 4Hr Calcium Magnesium Total Bilirubin Direct Bilirubin AST ALT Alkaline Phosphatase Troponin I High Sens 40.8 H* C-Reactive Protein 0.07 B-Natriuretic Peptide 1379 H Total Protein Albumin Procalcitonin 0.04 Urine Color Urine Appearance Urine pH Ur Specific [place] Urine Protein Urine Glucose (UA) Urine Ketones Urine Blood Urine Nitrite Ur Leukocyte Esterase Urine RBC Urine WBC Ur Squamous Epith Cells Urine Bacteria Urine Mucus Urine Opiates Screen Ur Barbiturates Screen Ur Phencyclidine Scrn Ur Amphetamines Screen U Benzodiazepines Scrn Urine Cocaine Screen U Marijuana (THC) Screen Coronavirus (PCR) Influenza Type A (PCR) Influenza Type B (PCR) RSV RNA Qual (PCR) 09/23/20 09/23/20 09/23/20 12:15 12:16 12:19 MCV MCH MCHC RDW Plt Count MPV Immature Gran % (Auto) Neut % (Auto) Lymph % (Auto) [place] % (Auto) Eos % (Auto) Baso % (Auto) Lymph # (Auto) [place] # (Auto) Eos # (Auto) Baso # (Auto) Abs Immat Gran (auto) Absolute Neuts (auto) Absolute Nucleated RBC Nucleated RBC % (auto) PT INR APTT D-Dimer VBG pH VBG pCO2 VBG pO2 VBG HCO3 VBG O2 Saturation VBG Base Excess Anion Gap Estim Creat Clear Calc Estimated GFR POC Glucose Random Glucose Estimat Average Glucose 126 Hemoglobin A1c % 6.0 Lactic Acid 2.1 H* Lactic Acid Fup @ 2Hr Lactic Acid Fup @ 4Hr Calcium Magnesium Total Bilirubin Direct Bilirubin AST ALT Alkaline Phosphatase Troponin I High Sens C-Reactive Protein B-Natriuretic Peptide Total Protein Albumin Procalcitonin Urine Color Urine Appearance Urine pH Ur Specific [place] Urine Protein Urine Glucose (UA) Urine Ketones Urine Blood Urine Nitrite Ur Leukocyte Esterase Urine RBC Urine WBC Ur Squamous Epith Cells Urine Bacteria Urine Mucus Urine Opiates Screen Ur Barbiturates Screen Ur Phencyclidine Scrn Ur Amphetamines Screen U Benzodiazepines Scrn Urine Cocaine Screen U Marijuana (THC) Screen Coronavirus (PCR) NEGATIVE Influenza Type A (PCR) NEGATIVE Influenza Type B (PCR) NEGATIVE RSV RNA Qual (PCR) NEGATIVE 09/23/20 09/23/20 09/23/20 12:21 13:31 14:46 MCV MCH MCHC RDW Plt Count MPV Immature Gran % (Auto) Neut % (Auto) Lymph % (Auto) [place] % (Auto) Eos % (Auto) Baso % (Auto) Lymph # (Auto) [place] # (Auto) Eos # (Auto) Baso # (Auto) Abs Immat Gran (auto) Absolute Neuts (auto) Absolute Nucleated RBC Nucleated RBC % (auto) PT INR APTT D-Dimer VBG pH 7.42 VBG pCO2 37 VBG pO2 63 VBG HCO3 24 VBG O2 Saturation 90.0 VBG Base Excess 0.5 Anion Gap Estim Creat Clear Calc Estimated GFR POC Glucose Random Glucose Estimat Average Glucose Hemoglobin A1c % Lactic Acid Lactic Acid Fup @ 2Hr 4.2 H* Lactic Acid Fup @ 4Hr Calcium Magnesium Total Bilirubin Direct Bilirubin AST ALT Alkaline Phosphatase Troponin I High Sens C-Reactive Protein B-Natriuretic Peptide Total Protein Albumin Procalcitonin Urine Color YELLOW Urine Appearance CLEAR Urine pH 6.0 Ur Specific [place] 1.020 Urine Protein TRACE Urine Glucose (UA) NEG Urine Ketones NEG Urine Blood TRACE Urine Nitrite NEG Ur Leukocyte Esterase NEG Urine RBC 1-4 Urine WBC 0-2 Ur Squamous Epith Cells TRACE Urine Bacteria NONE Urine Mucus TRACE Urine Opiates Screen Ur Barbiturates Screen Ur Phencyclidine Scrn Ur Amphetamines Screen U Benzodiazepines Scrn Urine Cocaine Screen U Marijuana (THC) Screen Coronavirus (PCR) Influenza Type A (PCR) Influenza Type B (PCR) RSV RNA Qual (PCR) 09/23/20 09/23/20 09/23/20 16:17 16:17 18:12 MCV MCH MCHC RDW Plt Count MPV Immature Gran % (Auto) Neut % (Auto) Lymph % (Auto) [place] % (Auto) Eos % (Auto) Baso % (Auto) Lymph # (Auto) [place] # (Auto) Eos # (Auto) Baso # (Auto) Abs Immat Gran (auto) Absolute Neuts (auto) Absolute Nucleated RBC Nucleated RBC % (auto) PT 12.4 INR 1.1 APTT 23.9 L D-Dimer 231 VBG pH VBG pCO2 VBG pO2 VBG HCO3 VBG O2 Saturation VBG Base Excess Anion Gap Estim Creat Clear Calc Estimated GFR POC Glucose Random Glucose Estimat Average Glucose Hemoglobin A1c % Lactic Acid Lactic Acid Fup @ 2Hr Lactic Acid Fup @ 4Hr 5.7 H* Calcium Magnesium Total Bilirubin Direct Bilirubin AST ALT Alkaline Phosphatase Troponin I High Sens 33.1 C-Reactive Protein B-Natriuretic Peptide Total Protein Albumin Procalcitonin Urine Color Urine Appearance Urine pH Ur Specific [place] Urine Protein Urine Glucose (UA) Urine Ketones Urine Blood Urine Nitrite Ur Leukocyte Esterase Urine RBC Urine WBC Ur Squamous Epith Cells Urine Bacteria Urine Mucus Urine Opiates Screen Ur Barbiturates Screen Ur Phencyclidine Scrn Ur Amphetamines Screen U Benzodiazepines Scrn Urine Cocaine Screen U Marijuana (THC) Screen Coronavirus (PCR) Influenza Type A (PCR) Influenza Type B (PCR) RSV RNA Qual (PCR) 09/23/20 09/24/20 09/24/20 20:14 05:55 05:55 MCV 91.6 MCH 30.2 MCHC 32.9 RDW 13.5 Plt Count 213 MPV 11.7 Immature Gran % (Auto) Neut % (Auto) Lymph % (Auto) [place] % (Auto) Eos % (Auto) Baso % (Auto) Lymph # (Auto) [place] # (Auto) Eos # (Auto) Baso # (Auto) Abs Immat Gran (auto) Absolute Neuts (auto) Absolute Nucleated RBC 0.000 Nucleated RBC % (auto) 0.0 PT INR APTT D-Dimer VBG pH VBG pCO2 VBG pO2 VBG HCO3 VBG O2 Saturation VBG Base Excess Anion Gap 16 Estim Creat Clear Calc 54.2 Estimated GFR 53 POC Glucose Random Glucose 116 H Estimat Average Glucose Hemoglobin A1c % Lactic Acid Lactic Acid Fup @ 2Hr Lactic Acid Fup @ 4Hr Calcium 9.2 Magnesium Total Bilirubin Direct Bilirubin AST ALT Alkaline Phosphatase Troponin I High Sens C-Reactive Protein B-Natriuretic Peptide Total Protein Albumin Procalcitonin Urine Color Urine Appearance Urine pH Ur Specific [place] Urine Protein Urine Glucose (UA) Urine Ketones Urine Blood Urine Nitrite Ur Leukocyte Esterase Urine RBC Urine WBC Ur Squamous Epith Cells Urine Bacteria Urine Mucus Urine Opiates Screen Not Detected Ur Barbiturates Screen Not Detected Ur Phencyclidine Scrn Not Detected Ur Amphetamines Screen Not Detected U Benzodiazepines Scrn Not Detected Urine Cocaine Screen POSITIVE H U Marijuana (THC) Screen Not Detected Coronavirus (PCR) Influenza Type A (PCR) Influenza Type B (PCR) RSV RNA Qual (PCR) 09/24/20 09/24/20 05:55 08:41 MCV MCH MCHC RDW Plt Count MPV Immature Gran % (Auto) Neut % (Auto) Lymph % (Auto) [place] % (Auto) Eos % (Auto) Baso % (Auto) Lymph # (Auto) [place] # (Auto) Eos # (Auto) Baso # (Auto) Abs Immat Gran (auto) Absolute Neuts (auto) Absolute Nucleated RBC Nucleated RBC % (auto) PT INR APTT D-Dimer VBG pH VBG pCO2 VBG pO2 VBG HCO3 VBG O2 Saturation VBG Base Excess Anion Gap Estim Creat Clear Calc Estimated GFR POC Glucose Random Glucose Estimat Average Glucose Hemoglobin A1c % Lactic Acid 2.4 H* Lactic Acid Fup @ 2Hr 2.6 H* Lactic Acid Fup @ 4Hr Calcium Magnesium Total Bilirubin Direct Bilirubin AST ALT Alkaline Phosphatase Troponin I High Sens C-Reactive Protein B-Natriuretic Peptide Total Protein Albumin Procalcitonin Urine Color Urine Appearance Urine pH Ur Specific [place] Urine Protein Urine Glucose (UA) Urine Ketones Urine Blood Urine Nitrite Ur Leukocyte Esterase Urine RBC Urine WBC Ur Squamous Epith Cells Urine Bacteria Urine Mucus Urine Opiates Screen Ur Barbiturates Screen Ur Phencyclidine Scrn Ur Amphetamines Screen U Benzodiazepines Scrn Urine Cocaine Screen U Marijuana (THC) Screen Coronavirus (PCR) Influenza Type A (PCR) Influenza Type B (PCR) RSV RNA Qual (PCR) Assessment and Plan (1) CHF exacerbation: Status: Acute Assessment and Plan: ?55M presented with sob, found to have acute chf acute on chronic CHF unspecified suspect history of cardiomyopathy, check echo pulm edema and symptoms resolved, dced iv lasix CXR looks much better 4 beat NSVT on tele cardio eval drug screen positive for cocaine, now admitting to active use HTN started losartan, amlodipine documented DM a1c - 6 borderline DM monitor lactic acidosis not due to sepsis from chf and nebulizer Quality Stroke Does the patient have a stroke diagnosis?: No VTE Prior VTE?: No VTE Risk Level:: Medical - moderate - high VTE Device Contraindication: Treatment Not Indicated VTE Drug Contraindication: N/A - Med Ordered
[2020-09-24] MEDS: Potassium Chloride ER 20 MEQ TAB.ER.PRT 40 MEQ PO (09:55)
--- NOTE | 2020-09-24 11:08 | P.CONCA_ITS ---
History of Present Illness History of Present Illness Date of Service: 09/24/20 Requesting physician: Poncho Manning Chief complaint: CHF Narrative: 55-year-old gentleman with background history of hypertension and diabetes for which he has not been taking any medications presenting for shortness of breath over the last 2 days. He has been using cocaine every day. Clinically was in heart failure on admission. He was hypertensive. Has been on IV diuretics and is feeling little better today. Denies any chest discomfort. He also reported the hospital is that he had dilated heart when he was in [place] few years ago. Review of Systems Review of Systems: SOB Yes all other systems are reviewed and are negative [facility] Past Medical History Medical History Cardiomyopathy Cigarette smoker Diabetes HTN (hypertension) Family History Family history: reviewed and not pertinent Social History Social History Household Members: Other Housing: House Do you presently have visiting nurse or other home services: No Alcohol intake: unknown Patient Tobacco Use Status: Current everyday Tobacco user Use of substances other than those prescribed or required for medical reasons: No Currently Displaying Signs/Symptoms of Drug Intoxication Withdrawal: No Have you been hit, kicked, punched, or otherwise hurt by someone within the past year? If so, by whom?: No Advance Directives: No Advance Directives Information Provided: No Do you have thoughts of harming others: None Do you have a plan to hurt others: No Plan Recently lost weight without trying: No Meds Allergies Allergy/AdvReac Type Severity Reaction Status Date / Time No Known Allergies Allergy Verified 09/23/20 10:56 Active Medications: Current Medications Generic Name Dose Route Start Last Admin Trade Name Freq PRN Reason Stop Dose Admin Amlodipine Besylate 5 mg 09/24/20 09:00 09/24/20 08:16 Amlodipine Besylate 5 Mg Tablet PO 5 mg DAILY [facility] Administration Protocol Enoxaparin Sodium 40 mg 09/23/20 18:00 09/23/20 19:41 Enoxaparin Sodium 40 Mg/0.4 Ml Syringe SUBCUT Not Given Q24H [facility] Furosemide 40 mg 09/24/20 10:30 Furosemide 40 Mg/4 Ml Vial IVPUSH BID@0900,1800 [facility] Protocol Isosorbide Mononitrate 30 mg 09/24/20 10:30 Isosorbide Mononitrate 30 Mg Tab.Er.24h PO DAILY [facility] Protocol Losartan Potassium 50 mg 09/24/20 09:00 09/24/20 08:16 Losartan Potassium 50 Mg Tablet PO 50 mg DAILY [facility] Administration Protocol Sodium Chloride 3 ml 09/24/20 00:00 09/24/20 08:16 0.9 % Sodium Chloride Flush 3 Ml Syringe IVFLUSH 3 ml QSHIFT [facility] Administration Home Medications Medication Instructions Recorded Confirmed Last Taken Type No Known Home Meds 09/23/20 09/23/20 Unknown History Physical Exam Vital Signs: Vital Signs: Last Vital Signs Temp 98.0 F 09/24/20 08:00 Pulse 72 09/24/20 08:16 Resp 20 09/24/20 08:00 BP 156/97 H 09/24/20 08:16 Pulse Ox 94 09/24/20 08:00 Body Mass Index 31.3 GENERAL APPEARANCE: in no acute distress, pleasant. NECK: no carotid bruit,+ jugular venous distention. SKIN: no suspicious lesions, warm and dry. HEART: no murmurs, regular rate and rhythm. LUNGS: crackles at bases. ABDOMEN: soft, nontender. EXTREMITIES: no edema. PERIPHERAL PULSES: equal. NEUROLOGIC: No gross deficits, AAO X 3 Results Labs and Meds Result diagrams: 09/24/20 05:55 09/24/20 05:55 Lab results: Laboratory Results - last 24 hr 09/23/20 09/23/20 09/23/20 12:15 12:15 12:15 WBC 9.7 RBC 4.81 Hgb 14.6 Hct 46.0 MCV 95.6 MCH 30.4 MCHC 31.7 RDW 13.6 Plt Count 196 MPV 12.5 H Immature Gran % (Auto) 0.3 Neut % (Auto) 76.7 H Lymph % (Auto) 16.7 L [place] % (Auto) 4.7 Eos % (Auto) 1.2 Baso % (Auto) 0.4 Lymph # (Auto) 1.6 [place] # (Auto) 0.5 Eos # (Auto) 0.1 Baso # (Auto) 0.0 Abs Immat Gran (auto) 0.03 Absolute Neuts (auto) 7.5 Absolute Nucleated RBC 0.000 Nucleated RBC % (auto) 0.0 PT INR APTT D-Dimer VBG pH VBG pCO2 VBG pO2 VBG HCO3 VBG O2 Saturation VBG Base Excess Sodium 143 Potassium 4.0 Chloride 105 Carbon Dioxide 28 Anion Gap 14 BUN 22 H Creatinine 1.03 Estim Creat Clear Calc 73.9 Estimated GFR > 60 Random Glucose 141 H Estimat Average Glucose Hemoglobin A1c % Lactic Acid Lactic Acid Fup @ 2Hr Lactic Acid Fup @ 4Hr Calcium 9.4 Magnesium 1.6 Total Bilirubin 0.3 Direct Bilirubin 0.2 AST 20 ALT 25 Alkaline Phosphatase 112 Troponin I High Sens 40.8 H* C-Reactive Protein B-Natriuretic Peptide 1379 H Total Protein 7.3 Albumin 4.4 Procalcitonin Urine Color Urine Appearance Urine pH Ur Specific [place] Urine Protein Urine Glucose (UA) Urine Ketones Urine Blood Urine Nitrite Ur Leukocyte Esterase Urine RBC Urine WBC Ur Squamous Epith Cells Urine Bacteria Urine Mucus Urine Opiates Screen Ur Barbiturates Screen Ur Phencyclidine Scrn Ur Amphetamines Screen U Benzodiazepines Scrn Urine Cocaine Screen U Marijuana (THC) Screen Coronavirus (PCR) Influenza Type A (PCR) Influenza Type B (PCR) RSV RNA Qual (PCR) 09/23/20 09/23/20 09/23/20 12:15 12:15 12:15 WBC RBC Hgb Hct MCV MCH MCHC RDW Plt Count MPV Immature Gran % (Auto) Neut % (Auto) Lymph % (Auto) [place] % (Auto) Eos % (Auto) Baso % (Auto) Lymph # (Auto) [place] # (Auto) Eos # (Auto) Baso # (Auto) Abs Immat Gran (auto) Absolute Neuts (auto) Absolute Nucleated RBC Nucleated RBC % (auto) PT INR APTT D-Dimer VBG pH VBG pCO2 VBG pO2 VBG HCO3 VBG O2 Saturation VBG Base Excess Sodium Potassium Chloride Carbon Dioxide Anion Gap BUN Creatinine Estim Creat Clear Calc Estimated GFR Random Glucose Estimat Average Glucose 126 Hemoglobin A1c % 6.0 Lactic Acid Lactic Acid Fup @ 2Hr Lactic Acid Fup @ 4Hr Calcium Magnesium Total Bilirubin Direct Bilirubin AST ALT Alkaline Phosphatase Troponin I High Sens C-Reactive Protein 0.07 B-Natriuretic Peptide Total Protein Albumin Procalcitonin 0.04 Urine Color Urine Appearance Urine pH Ur Specific [place] Urine Protein Urine Glucose (UA) Urine Ketones Urine Blood Urine Nitrite Ur Leukocyte Esterase Urine RBC Urine WBC Ur Squamous Epith Cells Urine Bacteria Urine Mucus Urine Opiates Screen Ur Barbiturates Screen Ur Phencyclidine Scrn Ur Amphetamines Screen U Benzodiazepines Scrn Urine Cocaine Screen U Marijuana (THC) Screen Coronavirus (PCR) Influenza Type A (PCR) Influenza Type B (PCR) RSV RNA Qual (PCR) 09/23/20 09/23/20 09/23/20 12:16 12:19 12:21 WBC RBC Hgb Hct MCV MCH MCHC RDW Plt Count MPV Immature Gran % (Auto) Neut % (Auto) Lymph % (Auto) [place] % (Auto) Eos % (Auto) Baso % (Auto) Lymph # (Auto) [place] # (Auto) Eos # (Auto) Baso # (Auto) Abs Immat Gran (auto) Absolute Neuts (auto) Absolute Nucleated RBC Nucleated RBC % (auto) PT INR APTT D-Dimer VBG pH VBG pCO2 VBG pO2 VBG HCO3 VBG O2 Saturation VBG Base Excess Sodium Potassium Chloride Carbon Dioxide Anion Gap BUN Creatinine Estim Creat Clear Calc Estimated GFR Random Glucose Estimat Average Glucose Hemoglobin A1c % Lactic Acid 2.1 H* Lactic Acid Fup @ 2Hr Lactic Acid Fup @ 4Hr Calcium Magnesium Total Bilirubin Direct Bilirubin AST ALT Alkaline Phosphatase Troponin I High Sens C-Reactive Protein B-Natriuretic Peptide Total Protein Albumin Procalcitonin Urine Color YELLOW Urine Appearance CLEAR Urine pH 6.0 Ur Specific [place] 1.020 Urine Protein TRACE Urine Glucose (UA) NEG Urine Ketones NEG Urine Blood TRACE Urine Nitrite NEG Ur Leukocyte Esterase NEG Urine RBC 1-4 Urine WBC 0-2 Ur Squamous Epith Cells TRACE Urine Bacteria NONE Urine Mucus TRACE Urine Opiates Screen Ur Barbiturates Screen Ur Phencyclidine Scrn Ur Amphetamines Screen U Benzodiazepines Scrn Urine Cocaine Screen U Marijuana (THC) Screen Coronavirus (PCR) NEGATIVE Influenza Type A (PCR) NEGATIVE Influenza Type B (PCR) NEGATIVE RSV RNA Qual (PCR) NEGATIVE 09/23/20 09/23/20 09/23/20 13:31 14:46 16:17 WBC RBC Hgb Hct MCV MCH MCHC RDW Plt Count MPV Immature Gran % (Auto) Neut % (Auto) Lymph % (Auto) [place] % (Auto) Eos % (Auto) Baso % (Auto) Lymph # (Auto) [place] # (Auto) Eos # (Auto) Baso # (Auto) Abs Immat Gran (auto) Absolute Neuts (auto) Absolute Nucleated RBC Nucleated RBC % (auto) PT INR APTT D-Dimer VBG pH 7.42 VBG pCO2 37 VBG pO2 63 VBG HCO3 24 VBG O2 Saturation 90.0 VBG Base Excess 0.5 Sodium Potassium Chloride Carbon Dioxide Anion Gap BUN Creatinine Estim Creat Clear Calc Estimated GFR Random Glucose Estimat Average Glucose Hemoglobin A1c % Lactic Acid Lactic Acid Fup @ 2Hr 4.2 H* Lactic Acid Fup @ 4Hr Calcium Magnesium Total Bilirubin Direct Bilirubin AST ALT Alkaline Phosphatase Troponin I High Sens 33.1 C-Reactive Protein B-Natriuretic Peptide Total Protein Albumin Procalcitonin Urine Color Urine Appearance Urine pH Ur Specific [place] Urine Protein Urine Glucose (UA) Urine Ketones Urine Blood Urine Nitrite Ur Leukocyte Esterase Urine RBC Urine WBC Ur Squamous Epith Cells Urine Bacteria Urine Mucus Urine Opiates Screen Ur Barbiturates Screen Ur Phencyclidine Scrn Ur Amphetamines Screen U Benzodiazepines Scrn Urine Cocaine Screen U Marijuana (THC) Screen Coronavirus (PCR) Influenza Type A (PCR) Influenza Type B (PCR) RSV RNA Qual (PCR) 09/23/20 09/23/20 09/23/20 16:17 18:12 20:14 WBC RBC Hgb Hct MCV MCH MCHC RDW Plt Count MPV Immature Gran % (Auto) Neut % (Auto) Lymph % (Auto) [place] % (Auto) Eos % (Auto) Baso % (Auto) Lymph # (Auto) [place] # (Auto) Eos # (Auto) Baso # (Auto) Abs Immat Gran (auto) Absolute Neuts (auto) Absolute Nucleated RBC Nucleated RBC % (auto) PT 12.4 INR 1.1 APTT 23.9 L D-Dimer 231 VBG pH VBG pCO2 VBG pO2 VBG HCO3 VBG O2 Saturation VBG Base Excess Sodium Potassium Chloride Carbon Dioxide Anion Gap BUN Creatinine Estim Creat Clear Calc Estimated GFR Random Glucose Estimat Average Glucose Hemoglobin A1c % Lactic Acid Lactic Acid Fup @ 2Hr Lactic Acid Fup @ 4Hr 5.7 H* Calcium Magnesium Total Bilirubin Direct Bilirubin AST ALT Alkaline Phosphatase Troponin I High Sens C-Reactive Protein B-Natriuretic Peptide Total Protein Albumin Procalcitonin Urine Color Urine Appearance Urine pH Ur Specific [place] Urine Protein Urine Glucose (UA) Urine Ketones Urine Blood Urine Nitrite Ur Leukocyte Esterase Urine RBC Urine WBC Ur Squamous Epith Cells Urine Bacteria Urine Mucus Urine Opiates Screen Not Detected Ur Barbiturates Screen Not Detected Ur Phencyclidine Scrn Not Detected Ur Amphetamines Screen Not Detected U Benzodiazepines Scrn Not Detected Urine Cocaine Screen POSITIVE H U Marijuana (THC) Screen Not Detected Coronavirus (PCR) Influenza Type A (PCR) Influenza Type B (PCR) RSV RNA Qual (PCR) 09/24/20 09/24/20 09/24/20 05:55 05:55 05:55 WBC 20.3 H RBC 4.41 L Hgb 13.3 L Hct 40.4 L MCV 91.6 MCH 30.2 MCHC 32.9 RDW 13.5 Plt Count 213 MPV 11.7 Immature Gran % (Auto) Neut % (Auto) Lymph % (Auto) [place] % (Auto) Eos % (Auto) Baso % (Auto) Lymph # (Auto) [place] # (Auto) Eos # (Auto) Baso # (Auto) Abs Immat Gran (auto) Absolute Neuts (auto) Absolute Nucleated RBC 0.000 Nucleated RBC % (auto) 0.0 PT INR APTT D-Dimer VBG pH VBG pCO2 VBG pO2 VBG HCO3 VBG O2 Saturation VBG Base Excess Sodium 142 Potassium 3.2 L Chloride 98 Carbon Dioxide 31 H Anion Gap 16 BUN 31 H Creatinine 1.39 Estim Creat Clear Calc 54.2 Estimated GFR 53 Random Glucose 116 H Estimat Average Glucose Hemoglobin A1c % Lactic Acid 2.4 H* Lactic Acid Fup @ 2Hr Lactic Acid Fup @ 4Hr Calcium 9.2 Magnesium Total Bilirubin Direct Bilirubin AST ALT Alkaline Phosphatase Troponin I High Sens C-Reactive Protein B-Natriuretic Peptide Total Protein Albumin Procalcitonin Urine Color Urine Appearance Urine pH Ur Specific [place] Urine Protein Urine Glucose (UA) Urine Ketones Urine Blood Urine Nitrite Ur Leukocyte Esterase Urine RBC Urine WBC Ur Squamous Epith Cells Urine Bacteria Urine Mucus Urine Opiates Screen Ur Barbiturates Screen Ur Phencyclidine Scrn Ur Amphetamines Screen U Benzodiazepines Scrn Urine Cocaine Screen U Marijuana (THC) Screen Coronavirus (PCR) Influenza Type A (PCR) Influenza Type B (PCR) RSV RNA Qual (PCR) 09/24/20 08:41 WBC RBC Hgb Hct MCV MCH MCHC RDW Plt Count MPV Immature Gran % (Auto) Neut % (Auto) Lymph % (Auto) [place] % (Auto) Eos % (Auto) Baso % (Auto) Lymph # (Auto) [place] # (Auto) Eos # (Auto) Baso # (Auto) Abs Immat Gran (auto) Absolute Neuts (auto) Absolute Nucleated RBC Nucleated RBC % (auto) PT INR APTT D-Dimer VBG pH VBG pCO2 VBG pO2 VBG HCO3 VBG O2 Saturation VBG Base Excess Sodium Potassium Chloride Carbon Dioxide Anion Gap BUN Creatinine Estim Creat Clear Calc Estimated GFR Random Glucose Estimat Average Glucose Hemoglobin A1c % Lactic Acid Lactic Acid Fup @ 2Hr 2.6 H* Lactic Acid Fup @ 4Hr Calcium Magnesium Total Bilirubin Direct Bilirubin AST ALT Alkaline Phosphatase Troponin I High Sens C-Reactive Protein B-Natriuretic Peptide Total Protein Albumin Procalcitonin Urine Color Urine Appearance Urine pH Ur Specific [place] Urine Protein Urine Glucose (UA) Urine Ketones Urine Blood Urine Nitrite Ur Leukocyte Esterase Urine RBC Urine WBC Ur Squamous Epith Cells Urine Bacteria Urine Mucus Urine Opiates Screen Ur Barbiturates Screen Ur Phencyclidine Scrn Ur Amphetamines Screen U Benzodiazepines Scrn Urine Cocaine Screen U Marijuana (THC) Screen Coronavirus (PCR) Influenza Type A (PCR) Influenza Type B (PCR) RSV RNA Qual (PCR) Imaging Radiologist's impression: Impressions Chest X-Ray 09/23/20 11:02 IMPRESSION: Increased markings right greater than left lung as described. This could represent infiltrate versus asymmetric pulmonary edema. Attention to follow-up. Ill-definition of the right hilum could be enlargement. Again attention to follow-up Chest CTA 09/23/20 13:49 IMPRESSION: 1. There are no large central emboli however there are none occlusive peripheral filling defects in secondary and tertiary branches concerning for possible multiple could be old tiny emboli. Versus artifact. No associated infarct of cardiac strain. 2. Patchy groundglass interstitial opacification especially at the upper portion lower lobes concerning for possible atypical infection including possible viral pneumonia. Aspiration pneumonia. Versus interstitial edema. Please correlate with clinical status. 3. Heart is enlarged, there is a small pericardial effusion 4. Bilateral small pleural effusions. This critical result was discussed with Dr. Jernigan by telephone at 09/23/2020 3:44 PM and it was ascertained that the content and urgency of the report was understood at the time of direct communication. Venous Duplex 09/23/20 15:58 IMPRESSION: No DVT demonstrated in the bilateral lower extremity. Chest X-Ray 09/24/20 08:05 IMPRESSION: No gross radiographic abnormality. Assessment and Plan (1) CHF exacerbation: Status: Acute (2) HTN (hypertension): Status: Acute 55-year-old gentleman with background history of reported cardiomyopathy while he was in [place] presenting for shortness of breath and elevated blood pressures in the setting of cocaine abuse. Clinically still in heart failure. Agree with IV diuretics right now. He has been started on losartan for blood pressure control. We will check echo on him tomorrow. Once euvolemic then we can start carvedilol 3.125 mg twice a day. Counselled about cocaine abuse. Thank you for allowing me to participate in the care of your patient. Please feel free to contact me if you have any questions. Procedures Date of Service Date of Service: 09/24/20
[2020-09-24 11:09] LABS: Reflex Lactate? 2 Y
[2020-09-24] MEDS: Nicotine Polacrilex 2 MG GUM BUCCAL (11:45)
[2020-09-24] MEDS: Furosemide 40 MG/4 ML VIAL IVPUSH ×2 (11:46→17:19)
[2020-09-24] MEDS: Isosorbide Mononitrate 30 MG TAB.ER.24H PO (11:46)
--- NOTE | 2020-09-24 11:54 | MHC.CM.PN ---
Patient lives in [place] and is here visiting his daughter. He is previously completely independent. No PCP, no insurance on file. Encouraged him to pursue both. He states at time of D/C, his daughter will come to get him. CM to follow.
[2020-09-24] MEDS: Nicotine 21 MG PATCH.TD24 TRANSDERMA (14:31)
[2020-09-25 03:37] VITALS: BP 119/67; PULSE 62; RESP 20; TEMP 36.4; O2SAT 94
[2020-09-25 05:57] LABS: Hematocrit 41.3 % (42-52); Hemoglobin 13.5 g/dl (14.0-18.0); Mean Corpuscular HGB Conc 32.7 g/dl (31.0-36.0); Mean Corpuscular Hemoglobin 30.1 pg (27.0-33.0); Mean Corpuscular Volume 92.2 fL (80-98); Mean Platelet Volume 12.3 fL (9.4-12.4); Platelet Count 209 X10*3/uL (160-400); Red Blood Count 4.48 X10*6/uL (4.60-5.80); Red Cell Distribution Width 13.7 % (11.0-16.0); White Blood Count 12.9 X10*3/uL (4.8-10.8)
[2020-09-25 06:08] LABS: Anion Gap 13 (12-20); Blood Urea Nitrogen 43 mg/dL (9-16); Calcium 9.5 mg/dL (8.4-10.2); Carbon Dioxide 31 mmol/L (22-29); Chloride 101 mmol/L (96-108); Creatinine Clr Calc Pharmacy 59.8; Estimated Glomerular Filt Rate 59; Glucose Fasting 140 mg/dL (60-99); Potassium 3.5 mmol/L (3.3-5.1); Sodium 141 mmol/L (135-145)
--- NOTE | 2020-09-25 07:30 | CA_ITS ---
Transthoracic Echocardiogram Patient (Last, First, Middle): Josh Erwin, Gender: Male Date of : 1965 Age: 55 Procedure Date: 09/25/2020 Procedure Type: Transthoracic Echocardiogram Location: [facility] [place] Height: 157.48 cm Weight: 77.57 kg BSA: 1.79 m2 Heart Rate: bpm BP: 119 / 67 mmHg [employer]: Referring MD: Poncho Manning MD Symptoms: chf Conclusions: - 1.Moderately dilated left ventricle with moderate LVH with moderately reduced LV ejection fraction with LVEF of 35-40% with grade 2 diastolic dysfunction next 2. Severely dilated left atrium 3. Normal cardiac valvular Doppler 4. Normal RV systolic pressure 5. No gross pericardial effusion Findings Left Ventricle Moderately increased left ventricular cavity size. There is moderately increased left ventricular wall thickness. The left ventricular systolic function is moderately decreased. The visually estimated ejection fraction is between 35-40%. There is moderate global hypokinesis. Spectral Doppler is indicative of a pseudonormal filling pattern. E/E prime ratio is >15, consistent with elevated filling pressures. Evidence suggests grade II (moderate) diastolic dysfunction. Right Ventricle Normal right ventricular cavity size and systolic function. Atria The left atrium is severely dilated. Interatrial shunt cannot be excluded. The right atrium is normal in size. Aortic Valve Normal aortic valve structure and function. There is no aortic valve stenosis. There is no aortic valve regurgitation. Mitral Valve There is mild anterior and posterior mitral leaflet thickening. There is trace mitral valve regurgitation. There is no mitral valve stenosis. There is mild mitral annular dilatation. Pulmonic Valve The pulmonic valve is likely normal. There is trace pulmonic valve regurgitation. Tricuspid Valve Normal tricuspid valve structure. There is trace tricuspid valve regurgitation. The right ventricular systolic pressure is normal. The right ventricular systolic pressure is 28 mmHg. Normal right atrial pressure. There is no evidence of pulmonary hypertension. Great Vessels All visible segments of the aorta are normal in size. The pulmonary artery was not well visualized. Venous The inferior vena cava is normal in size and collapses greater than 50% with inspiration. Pericardium/Pleural There is no evidence of pericardial effusion. Prior Study Comparison No prior study available for comparison. Measurements 2D Linear Measurements RVIDd: 3.94 RVIDd Index: 2.20 IVSd: 1.47 0.6-0.9/0.6-1.0 cm LVIDd: 6.19 3.9-5.3/4.2-5.9 cm LVIDd Index: 3.46 2.4-3.2/2.2-3.1 cm/m2 LVIDs: 5.00 2.0-3.6 cm LVPWd: 1.54 0.7-1.1 cm Ao Root: 3.70 2.1-3.5 cm LA Diam: 5.20 2.7-3.8/3.0-4.0 cm LAIDs Index: 2.91 1.5-2.3 cm/m2 LV Mass: 563.17 67-162/88-224 g LV Mass Index: 314.62 43-95/49-115 g/m2 LVOT Diam: 2.20 3.0+(-)1.3 cm 2D Systolic Function EF 4C: 45.50 >55% EF 2C: 26.10 >55% Mitral Valve MV Pk E: 0.89 MV PK A: 0.27 MV Decel Time: 194.00 E/A: 3.30 E'Lateral: 4.57 E'Medial: 3.81 E/E' Med: 23.40 E/E' Lat: 19.50 Aortic Valve AoV Pk Gianni: 1.37 AoV Mn Gianni: 1.10 AoV VTI: 0.28 AoV Pk Grad: 8.00 Aov Mn Grad: 5.00 PRIYA Cont.VTI: 2.23 LVOT LVOT Pk Gianni: 0.78 LVOT Mn Gianni: 0.56 LVOT VTI: 0.17 LVOT Pk Grad: 2.00 LVOT Mn Grad: 1.00 LVOT Diam: 2.20 LVOT Area: 3.80 Diastolic Function MV Pk E: 0.89 MV Pk A: 0.27 E/A: 3.30 E'Medial: 3.81 E/E' Med: 23.40 E' Laterial: 4.57 E/E' Lat: 19.50 Right Ventricle TAPSE (mm): 2.00 TVS' Gianni: 8.27 Tricuspid Valve TR Pk Gianni: 2.51 TR Pk Grad: 25.00 RA Press: 3.00 RVSP: 28.00 Great Vessels Aorta Ao Root-2D: 3.70 2.0-3.7 cm Ao Asc: 3.80 2.1-3.4 cm Ao Arch: 3.30 Updated in Other Vendor System with Status of Final Navneet Bernal MD electronically signed on 09/25/2020 11:51:19 AM with status of Final
[2020-09-25 07:41] VITALS: BP 135/95; PULSE 59; RESP 17; TEMP 36.4; O2SAT 97
[2020-09-25 10:18] VITALS: BP 135/95; PULSE 59
[2020-09-25] MEDS: Isosorbide Mononitrate 30 MG TAB.ER.24H PO (10:18)
[2020-09-25] MEDS: Losartan Potassium 50 MG TABLET PO (10:18)
[2020-09-25 10:19] VITALS: BP 135/95; PULSE 59
[2020-09-25] MEDS: amLODIPine Besylate 5 MG TABLET PO (10:19)
[2020-09-25] MEDS: Furosemide 40 MG/4 ML VIAL IVPUSH (10:19)
[2020-09-25] MEDS: Nicotine 21 MG PATCH.TD24 TRANSDERMA (10:19)
[2020-09-25] MEDS: 0.9 % Sodium Chloride Flush 3 ML SYRINGE IVFLUSH (10:19)
--- NOTE | 2020-09-25 10:23 | MHC.CM.PN ---
pt being dcd today referral made to [facility] for [facility] ,he plans on moving to [facility] ,daughters contact imfo given to rashawn morales is simone [phone] her address is [address] [place] [address] dr horn also a list of providers given to pt for follow up medical care
[2020-09-25 11:25] VITALS: BP 108/74; PULSE 66; RESP 18; TEMP 36.6; O2SAT 99
--- NOTE | 2020-09-25 11:41 | MHC.CM.PN ---
per rounds pt to be dcd home referral made to [facility] and hali given to pt and daughter re pcp list
--- NOTE | 2020-09-25 12:15 | P.PNCA_ITS ---
Subjective Subjective Date of Service: 09/25/20 Principal diagnosis: Congestive heart failure Interval history: Patient feeling well and wanting to go home. Noted to have 1 episode of nonsustained VT this morning 8 beats. Denies palpitations. Denies chest pain. Denies shortness of breath. Review of Systems Review of Systems Yes all other systems are reviewed and are negative Constitutional: Reports no additional constitutional complaints Cardiovascular: Reports no additional cardiovascular complaints Respiratory: Reports no additional respiratory complaints Gastrointestinal: Reports no additional gastrointestinal complaints Genitourinary: Reports no additional male genitourinary complaints Musculoskeletal: Reports no additional musculoskeletal complaints Skin/Breast: Reports system reviewed and no additional complaints, except as docu Reports system reviewed and no additional complaints, except as documented Physical Exam Vital Signs: Last Vital Signs Temp 97.8 F 09/25/20 11:25 Pulse 66 09/25/20 11:25 Resp 18 09/25/20 11:25 BP 108/74 09/25/20 11:25 Pulse Ox 99 09/25/20 11:25 Body Mass Index 31.3 Const General: cooperative, comfortable, no acute distress, alert and awake Nutritional Appearance: overweight Orientation/consciousness: patient oriented x3 Neck Neck: Yes trachea midline, Yes supple and Yes no JVD Resp Effort & Inspection: normal respiratory effort Auscultation: clear to auscultation bilaterally Cardio Jugular venous distension: no JVD Palpation: abnormal PMI displaced PMI Rate: regular rate Rhythm: regular rhythm Heart sounds: S1 normal heart sound present, S2 normal heart sound present, no click, no gallops, no murmurs and no rubs GI Auscultation: normal bowel sounds Skin General skin exam: no rashes or lesions noted Neuro General: patient oriented x3 and no focal motor deficits Extrem General: Yes no clubbing, cyanosis or edema Results Labs and Meds Result diagrams: 09/25/20 05:08 09/25/20 05:08 Lab results: Laboratory Results - last 24 hr 09/25/20 09/25/20 05:08 05:08 WBC 12.9 H RBC 4.48 L Hgb 13.5 L Hct 41.3 L MCV 92.2 MCH 30.1 MCHC 32.7 RDW 13.7 Plt Count 209 MPV 12.3 Absolute Nucleated RBC 0.000 Nucleated RBC % (auto) 0.0 Sodium 141 Potassium 3.5 Chloride 101 Carbon Dioxide 31 H Anion Gap 13 BUN 43 H Creatinine 1.26 Estim Creat Clear Calc 59.8 Estimated GFR 59 Fasting Glucose 140 H Calcium 9.5 Progress Note: A&P Assessment and plan (1) CHF exacerbation: Status: Acute Assessment and Plan: Congestive heart failure exacerbation due to cocaine use and underlying cardiomyopathy most likely due to hypertension. Cocaine induced cardiomyopathy cannot be ruled out. Ischemic heart disease cannot be ruled out. Clinically appears to be euvolemic and well compensated. Agree with losartan therapy. Add carvedilol 3.125 mg b.i.d.. Discussed with patient complete abstinence from cocaine when beta-blockers are being used. He understands and agrees. The daughter was present at bedside when I was present in the room at all times and confirms that he would abstain from cocaine use. Lasix 40 mg daily. Daily weight monitoring and avoidance of salt loading was discussed with the patient. Additional diuretics as needed. Low-salt diet was discussed. Primary care follow-up as well. Will follow up in the clinic in 7-10 days patient is agreeable for follow-up. (2) Cardiomyopathy: Status: Acute Assessment and Plan: Cardiomyopathy, most likely hypertensive. Cocaine induced cardiomyopathy cannot be ruled out. Will also need ischemic workup as outpatient will schedule for Miya myocardial perfusion imaging as outpatient. Continue aggressive medical therapy. Continue neurohormonal modulation with losartan and Coreg and the therapy will be uptitrate as outpatient. Fall Risk Details Current Medications: Current Medications Generic Name Dose Route Start Last Admin Trade Name Freq PRN Reason Stop Dose Admin Amlodipine Besylate 5 mg 09/24/20 09:00 09/25/20 10:19 Amlodipine Besylate 5 Mg Tablet PO 5 mg DAILY [facility] Administration Protocol Enoxaparin Sodium 40 mg 09/23/20 18:00 09/24/20 17:19 Enoxaparin Sodium 40 Mg/0.4 Ml Syringe SUBCUT Not Given Q24H ASCENCION Furosemide 40 mg 09/24/20 10:30 09/25/20 10:19 Furosemide 40 Mg/4 Ml Vial IVPUSH 40 mg BID@0900,1800 [facility] Administration Protocol Isosorbide Mononitrate 30 mg 09/24/20 10:30 09/25/20 10:18 Isosorbide Mononitrate 30 Mg Tab.Er.24h PO 30 mg DAILY [facility] Administration Protocol Losartan Potassium 50 mg 09/24/20 09:00 09/25/20 10:18 Losartan Potassium 50 Mg Tablet PO 50 mg DAILY ASCENCION Administration Protocol Nicotine 21 mg 09/24/20 13:45 09/25/20 10:19 Nicotine 21 Mg Patch.Td24 TRANSDERMA 21 mg DAILY ASCENCION Administration Nicotine Polacrilex 2 mg 09/24/20 11:39 09/24/20 11:45 Nicotine Polacrilex 2 Mg Gum BUCCAL 2 mg Q2H PRN Administration cravings Sodium Chloride 3 ml 09/24/20 00:00 09/25/20 10:19 0.9 % Sodium Chloride Flush 3 Ml Syringe IVFLUSH 3 ml QSHIFT ASCENCION Administration Time Spent With Patient Time: Total time spent is greater than 50% in coordination of care (as documented) at patient's floor/unit and/or counseling patient: Time with patient: 25 - 35 minutes Progress Note: Quality Stroke Does the patient have a stroke diagnosis?: No Procedures Date of Service Date of Service: 09/25/20
--- NOTE | 2020-09-25 13:08 | PM.DS ---
DS: Providers Provider Date of Service: 09/25/20 Date of admission: 09/23/20 17:28 Primary care physician: None Physician Consults: 09/23/20 17:26 Consult to Cardiology Routine Consulting Provider: Angel Main Reason for consultation: chf DS: Diagnosis Discharge Diagnosis (1) CHF exacerbation: Status: Acute (2) Cardiomyopathy: Status: Acute DS: Medications Discharge Medications Home Medications: Previous Rx's Medication Instructions Recorded carvedilol 3.125 mg tablet (Coreg) 3.125 mg PO BID #60 tab 09/25/20 furosemide 40 mg tablet (Lasix) 40 mg PO DAILY #30 tab 09/25/20 losartan 50 mg tablet 50 mg PO DAILY #30 tab 09/25/20 DS: Summary Hospital Course Hospital Course: patient was admitted for acute on chronic systolic and diastolic chf. he was given IV lasix and symptoms quickly resolved. echo showed, 1.Moderately dilated left ventricle with moderate LVH with moderately reduced LV ejection fraction with LVEF of 35-40% with grade 2 diastolic dysfunction 2. Severely dilated left?atrium.?he was seen by cardiology who recommended starting coreg, losartan, lasix and outpatient follow up for ischemic work up. he was strongly advised to no longer use cocaine and was educated on the interaction with coreg. he is feeling better and will be discharged home. Time Spent with Patient Time attestation: Total time spent providing and/or coordinating discharge services: Discharge coordination time: Greater than 30 minutes Quality: Stroke Does the patient have a stroke diagnosis?: No Physical Exam Vital Signs: Vital Signs: Last Vital Signs Temp 97.8 F 09/25/20 11:25 Pulse 66 09/25/20 11:25 Resp 18 09/25/20 11:25 BP 108/74 09/25/20 11:25 Pulse Ox 99 09/25/20 11:25 Body Mass Index 31.3 General: AO X 3, no acute distress Resp: CTA bilateral CVS: S1,S2,RRR GI: soft, non tender, non distended Neuro: motor grossly intact Psych: appropriate affect DS: Data Data Completed and Pending Labs on day of discharge: Laboratory Results - last 24 hr 09/25/20 09/25/20 05:08 05:08 WBC 12.9 H RBC 4.48 L Hgb 13.5 L Hct 41.3 L MCV 92.2 MCH 30.1 MCHC 32.7 RDW 13.7 Plt Count 209 MPV 12.3 Absolute Nucleated RBC 0.000 Nucleated RBC % (auto) 0.0 Sodium 141 Potassium 3.5 Chloride 101 Carbon Dioxide 31 H Anion Gap 13 BUN 43 H Creatinine 1.26 Estim Creat Clear Calc 59.8 Estimated GFR 59 Fasting Glucose 140 H Calcium 9.5 Preliminary micro results at discharge 09/23/20 12:15 Blood Culture - Preliminary Blood - Venous No growth after 24 hours. 09/23/20 12:15 Blood Culture - Preliminary Blood - Venous No growth after 24 hours. Discharge Plan Discharge Patient Disposition: Home, Self-Care Discharge Diagnosis: chf Referrals: Physician,None [Primary Care Provider] - 1 Week Discharge Medications: New losartan 50 mg Tablet 50 mg PO DAILY Qty: 30 RF: 0 carvedilol [Coreg] 3.125 mg tablet 3.125 mg PO BID Qty: 60 RF: 0 furosemide [Lasix] 40 mg tablet 40 mg PO DAILY Qty: 30 RF: 0 Discharge Orders: Discharge Order (Routine); Ordered 09/25/20 Ordered By: Poncho Manning Diet: advance to usual diet Activity on Discharge: As tolerated Stand Alone Forms: Patient Portal Discharge page Care Plan Goals: recovery Health Concerns: chf Plan of Treatment: no cocaine or drug use, start medications as prescribed, follow up with heart doctor for further work up Assessment: see above
== END 2020-09-25 14:07 | disposition home or self-care (01) | DRG 816 ==
LOC: HO.ED 17:20 → HO.IMC 17:45
PROVIDERS: Physician Assistant; Admitting Provider Internal Medicine; Emergency Provider Emergency Medicine Emergency Medical Services; Visit Provider Internal Medicine
DX: T40.5X1A Poisoning by cocaine, accidental (unintentional), initial encounter (principal); J96.01 Acute respiratory failure with hypoxia; I47.2 Ventricular tachycardia; I50.43 Acute on chronic combined systolic (congestive) and diastolic (congestive) heart failure; I11.0 Hypertensive heart disease with heart failure; E87.2 Acidosis; Y92.9 Unspecified place or not applicable; F14.10 Cocaine abuse, uncomplicated; E11.9 Type 2 diabetes mellitus without complications; I42.7 Cardiomyopathy due to drug and external agent; F17.210 Nicotine dependence, cigarettes, uncomplicated; Z20.822 Contact with and (suspected) exposure to COVID-19; Z71.6 Tobacco abuse counseling; Z79.899 Other long term (current) drug therapy
CPT/HCPCS: 0241U; 36415; 36600; 71045; 71275; 80048; 80076; 80307; 81001; 82803; 82947; 83036; 83605; 83735; 83880; 84145; 84484; 85025; 85027; 85379; 85610; 85730; 86140; 87040; 93005; 93306; 93970; 94640; 94644; 96361; 96374; 96375; 99285; 99291; J1940; J2930; Q9967

== ENCOUNTER 2021-02-10 17:20 | Emergency (ER) | payer MEDICAID, SELFPAY ==
[2021-02-10 17:58] VITALS: BP 171/114; PULSE 82; RESP 24; TEMP 36.8; O2SAT 96; BMI 25.8
[2021-02-10 18:36] LABS: COVID-19 Test Positive (Negative)
== END 2021-02-10 22:41 | disposition left against medical advice (07) ==
PROVIDERS: Emergency Provider Emergency Medicine
DX: R06.00 Dyspnea, unspecified (principal); Z20.822 Contact with and (suspected) exposure to COVID-19
CPT/HCPCS: 36415; 71045; 80053; 85025; 87635; 99282; 99283; 99284; J8540

== ENCOUNTER 2021-02-10 22:24 | Emergency (ER) | payer MEDICAID, SELFPAY ==
--- NOTE | ~2021-02-10 | XR_ITS ---
EXAMINATION: XR CHEST CLINICAL INFORMATION: Covid positive COMPARISON: 09/24/2020 TECHNIQUE: Frontal view of the chest was obtained. FINDINGS: The lungs are well expanded. Interstitial prominence noted with Anna B-lines. No pleural effusion or pneumothorax. No dense consolidation. The cardiomediastinal silhouette is unchanged. XR/XR chest 1V IMPRESSION: No consolidation. Findings suggestive of mild interstitial edema.
[2021-02-11 01:37] VITALS: BP 168/120; PULSE 91; RESP 26; TEMP 37.2; O2SAT 95; BMI 28.0
[2021-02-11 01:37] LABS: MANUAL DIFF FLAG NO
[2021-02-11 01:38] LABS: Basophils Percent Auto 0.5 % (0-2); Eosinophils Absolute Auto 0.1 X10*3/uL (0.0-0.4); Eosinophils Percent Auto 0.7 % (0-4); Hemoglobin 13.9 g/dl (14.0-18.0); Imm Gran Abs Auto 0.02 X10*3/uL (0.00-0.03); Imm Gran Pct Auto 0.2 % (0.0-0.4); Lymphocytes Absolute Auto 1.1 X10*3/uL (1.2-4.9); Lymphocytes Percent Auto 12.9 % (20-40); Mean Corpuscular HGB Conc 32.3 g/dl (31.0-36.0); Mean Corpuscular Hemoglobin 30.4 pg (27.0-33.0); Mean Corpuscular Volume 94.1 fL (80.0-98.0); Mean Platelet Volume 11.5 fL (9.4-12.4); Monocytes Absolute Auto 0.7 X10*3/uL (0.1-1.2); Monocytes Percent Auto 7.9 % (2-11); Neutrophils Absolute Auto 6.6 x10*3/uL (2.0-8.3); Neutrophils Percent Auto 77.8 % (45-73); Platelet Count 185 X10*3/uL (160-400); Red Blood Count 4.57 X10*6/uL (4.60-5.80); Red Cell Distribution Width 13.2 % (11.0-16.0); White Blood Count 8.4 X10*3/uL (4.8-10.8)
[2021-02-11 02:37] LABS: Alanine Aminotransferase 41 U/L (0-40); Alkaline Phosphatase 84 U/L (39-117); Anion Gap 10 (12-20); Aspartate Amino Transferase 28 U/L (5-37); Bilirubin Total 0.2 mg/dL (0.0-1.0); Blood Urea Nitrogen 17 mg/dL (9-16); Calcium 9.1 mg/dL (8.4-10.2); Carbon Dioxide 29 mmol/L (22-29); Chloride 104 mmol/L (96-108); Creatinine Clr Calc Pharmacy 64.9; Estimated Glomerular Filt Rate 51; Glucose Random 111 mg/dL (60-115); Sodium 139 mmol/L (135-145); Total Protein 6.7 g/dL (6.5-8.0)
[2021-02-11] MEDS: Albuterol Sulfate 90 MCG 8 GM INHALER 2 PUFF INHALE (04:33)
[2021-02-11] MEDS: dexAMETHasone 6 MG TABLET PO (04:33)
--- NOTE | 2021-02-11 04:41 | ED_ITS ---
HPI - URI/Sore Throat General Chief Complaint: Upper Respiratory Symptoms Stated Complaint: SOB (covid+) Time Seen by Provider: 02/11/21 04:06 Source: patient Mode of arrival: ambulatory Limitations: no limitations History of Present Illness HPI Narrative: Patient post vaccinated against COVID has not received a booster dose been sick for last 3 4 days tested positive for COVID saturating 95-97% room air but feels short of breath coughing frequently no prior lung disease Related Data Previous Rx's Medication Instructions Recorded carvedilol 3.125 mg tablet (Coreg) 3.125 mg PO BID #60 tab 09/25/20 furosemide 40 mg tablet (Lasix) 40 mg PO DAILY #30 tab 09/25/20 losartan 50 mg tablet 50 mg PO DAILY #30 tab 09/25/20 Allergies Allergy/AdvReac Type Severity Reaction Status Date / Time No Known Allergies Allergy Verified 09/23/20 10:56 Review of Systems Review of Systems: Yes all other systems are reviewed and are negative [facility] Past Medical History Medical History Bronchitis Cardiomyopathy Cigarette smoker Diabetes HTN (hypertension) Social History Social History Household Members: Other Housing: House Do you presently have visiting nurse or other home services: No Alcohol intake: unknown Patient Tobacco Use Status: Current everyday Tobacco user Substance Use Type: Crack/Cocaine Advance Directives: No Advance Directives Information Provided: Yes service: No Physical Exam Vital Signs: Vital Signs: Last Vital Signs Temp 98.9 F 02/11/21 01:37 Pulse 91 02/11/21 01:37 Resp 26 H 02/11/21 01:37 BP 168/120 H 02/11/21 01:37 Pulse Ox 95 02/11/21 01:37 BMI result Body Mass Index 28.0 Appearance: Alert. Oriented X3. No acute distress. ENT: Pharynx normal. Oral Mucosa moist Neck: Normal inspection. Neck supple. CVS: Normal heart rate and rhythm. Pulses normal. Respiratory: No respiratory distress. Prolonged expiration, Equal air entry bilateral, no wheezing/rales/rhonchi Abdomen: Soft and nontender. Bowel sounds are present, no mass palpable, no CVA tenderness Skin: Skin warm and dry. Normal skin color. Normal skin turgor. Extremities: No lower extremity edema. No calf tenderness Neuro: Oriented X 3. MDM - URI/Sore Throat Lab Data Attestation: I reviewed the patient's lab results. Result diagrams: 02/11/21 01:34 02/11/21 01:34 Labs: Lab Results 02/11/21 02/11/21 Range/Units 01:34 01:34 WBC 8.4 (4.8-10.8) X10*3/uL RBC 4.57 L (4.60-5.80) X10*6/uL Hgb 13.9 L (14.0-18.0) g/dl Hct 43.0 (42.0-52.0) % MCV 94.1 (80.0-98.0) fL MCH 30.4 (27.0-33.0) pg MCHC 32.3 (31.0-36.0) g/dl RDW 13.2 (11.0-16.0) % Plt Count 185 (160-400) X10*3/uL MPV 11.5 (9.4-12.4) fL Immature Gran % (Auto) 0.2 (0.0-0.4) % Neut % (Auto) 77.8 H (45-73) % Lymph % (Auto) 12.9 L (20-40) % [place] % (Auto) 7.9 (2-11) % Eos % (Auto) 0.7 (0-4) % Baso % (Auto) 0.5 (0-2) % Lymph # (Auto) 1.1 L (1.2-4.9) X10*3/uL [place] # (Auto) 0.7 (0.1-1.2) X10*3/uL Eos # (Auto) 0.1 (0.0-0.4) X10*3/uL Baso # (Auto) 0.0 (0.0-0.2) X10*3/uL Abs Immat Gran (auto) 0.02 (0.00-0.03) X10*3/uL Absolute Neuts (auto) 6.6 (2.0-8.3) x10*3/uL Absolute Nucleated RBC 0.000 (0.0-0.012) X10*3/uL Nucleated RBC % (auto) 0.0 (0.0-0.2) /100WBC Sodium 139 (135-145) mmol/L Potassium 4.0 (3.3-5.1) mmol/L Chloride 104 (96-108) mmol/L Carbon Dioxide 29 (22-29) mmol/L Anion Gap 10 L (12-20) BUN 17 H (9-16) mg/dL Creatinine 1.44 H (0.5-1.4) mg/dL Estim Creat Clear Calc 64.9 Estimated GFR 51 Random Glucose 111 (60-115) mg/dL Calcium 9.1 (8.4-10.2) mg/dL Total Bilirubin 0.2 (0.0-1.0) mg/dL AST 28 (5-37) U/L ALT 41 H (0-40) U/L Alkaline Phosphatase 84 D (39-117) U/L Total Protein 6.7 (6.5-8.0) g/dL Albumin 4.0 (3.5-5.0) g/dL Discharge Plan Discharge Clinical Impression: COVID-19 Patient Disposition: Home, Self-Care Instructions: COVID-19 (Coronavirus Disease 2019) (ED) Additional Instructions: Drink plenty of fluids Decadron as advised daily Albuterol inhaler as needed every 4-6 hours Report to the ER if increased shortness of breath Cough syrup as advised Prescriptions: No Action losartan 50 mg Tablet 50 mg PO DAILY Qty: 30 RF: 0 carvedilol [Coreg] 3.125 mg tablet 3.125 mg PO BID Qty: 60 RF: 0 furosemide [Lasix] 40 mg tablet 40 mg PO DAILY Qty: 30 RF: 0
== END 2021-02-11 06:06 | disposition home or self-care (01) ==
PROVIDERS: Emergency Provider Internal Medicine
DX: U07.1 COVID-19 (principal); R06.02 Shortness of breath; E11.9 Type 2 diabetes mellitus without complications; I10 Essential (primary) hypertension; F17.200 Nicotine dependence, unspecified, uncomplicated
CPT/HCPCS: 36415; 71045; 80053; 85025; 99283; 99284; J8540

== ENCOUNTER 2021-02-16 14:17 | Emergency (ER) | payer MEDICAID, SELFPAY ==
--- NOTE | ~2021-02-16 | XR_ITS ---
EXAMINATION: XR chest 1V CLINICAL INFORMATION: Shortness of breath wheezing COMPARISON: 02/11/2021 TECHNIQUE: XR chest 1V Tubes and lines: None Lungs and pleura: Mild interstitial and peribronchial marking unchanged suggesting probably mild interstitial pneumonitis Heart and mediastinum: The mediastinum is within normal limits.. Bones/soft tissue: Skeletal structures included are normal for patient's age. XR/XR chest 1V IMPRESSION: Redemonstration of very mild diffuse interstitial opacification concerning for possible interstitial pneumonitis versus interstitial edema. No pleural effusion. No dense consolidation lobar pneumonia.
[2021-02-16 14:36] VITALS: BP 143/91; BP 150/105; PULSE 64; PULSE 65; TEMP 36.8; O2SAT 97; O2SAT 99; BMI 27.4
--- NOTE | 2021-02-16 14:40 | ED.SOB ---
HPI - SOB/Dyspnea General Chief Complaint: General Medical Stated Complaint: SOB Time Seen by Provider: 02/16/21 14:40 Source: patient, EMS, RN notes reviewed and old records reviewed Mode of arrival: EMS Limitations: no limitations History of Present Illness HPI Narrative: 55 y/o male with history of cocaine use (reports sobriety), history of cardiomyopathy, CHF, hx small pericardial effusion and recent diagnosis of COVID-19 who presents to the ER with worsening SOB for the last 3 days. He was recently seen here on 02/11 and discharged with dexamethasone. He denied knowing he was COVID positive. He reports he is supposed to be multiple medications for his heart but he has not taken them in over a week. He lives in [place] and is here visiting family for [place]. He does not know the names of the other medications he is supposed to be on. He reports a history of fluid in his lungs over the summer and he needed to be hospitalized. Denies needing a thoracentesis but stayed in the hospital for IV diuresis. He reports his breathing is worse when he lays flat and he has woken up a few times the last few nights gasping for breath. He denies fevers at home. He has an intermittent dry cough. MD elicited complaint: shortness of breath Pertinent past history: congestive heart failure Onset (ago): day(s) Context: recent illness Timing: intermittent and progressively worsening Severity: moderate Exacerbating factors: lying flat Relieving factors: upright position Known history of: congestive heart failure Associated symptoms: cough and orthopnea Treatment prior to arrival: none Related Data Home oxygen amount: none Previous Rx's Medication Instructions Recorded carvedilol 3.125 mg tablet (Coreg) 3.125 mg PO BID #60 tab 09/25/20 furosemide 40 mg tablet (Lasix) 40 mg PO DAILY #30 tab 09/25/20 losartan 50 mg tablet 50 mg PO DAILY #30 tab 09/25/20 albuterol sulfate 90 mcg/actuation 2 puff INHALATION Q4-6H PRN #8.5 g 02/11/21 aerosol inhaler (ProAir HFA) codeine 10 mg-guaifenesin 100 mg/5 10 ml PO Q4-6H PRN #237 ml 02/11/21 mL oral liquid dexamethasone 6 mg tablet 6 mg PO DAILY #7 tab 02/11/21 (Decadron) furosemide 40 mg tablet (Lasix) 40 mg PO DAILY #30 tab 02/16/21 Allergies Allergy/AdvReac Type Severity Reaction Status Date / Time No Known Allergies Allergy Verified 09/23/20 10:56 Review of Systems Review of Systems: Constitutional: No Fever, No Chills ENT/Mouth: No sore throat, No Rhinorrhea, No Swallowing Difficulty Cardiovascular: No Chest Pain, + SOB, + Orthopnea, No Edema Respiratory: + Cough, No Sputum, No Wheezing, No dyspnea Gastrointestinal: No Nausea, No Vomiting, No Diarrhea, No abdominal Pain Genitourinary: No Dysuria, No Urinary Frequency, No Hematuria Musculoskeletal: No joint pain, No Myalgias Skin: No Skin Lesions, No rash Neuro: No Weakness, No Numbness, No Dizziness, No Headache Psych: No Anxiety/Panic, No Depression Heme/Lymph: No Bruising, No Lymphadenopathy Endocrine: No Polyuria, No Polydipsia PMFSH Past Medical History Medical History Bronchitis Cardiomyopathy Cigarette smoker Diabetes HTN (hypertension) Social History Social History Household Members: Other Housing: House Do you presently have visiting nurse or other home services: No Alcohol intake: unknown Patient Tobacco Use Status: Current everyday Tobacco user Substance Use Type: Crack/Cocaine Advance Directives: No Advance Directives Information Provided: No service: No Physical Exam Vital Signs: Vital Signs: Last Vital Signs Temp 98.3 F 02/16/21 14:36 Pulse 60 02/16/21 16:55 Resp 18 02/16/21 16:55 BP 153/106 H 02/16/21 16:55 Pulse Ox 99 02/16/21 16:55 BMI result Body Mass Index 27.4 Appearance: Alert. Oriented X3. No acute distress. Eyes: Pupils equal, round and reactive to light. ENT: Pharynx normal. Neck: Normal inspection. Neck supple. CVS: Normal heart rate and rhythm. Pulses normal. Respiratory: No respiratory distress. Breath sounds diminished at the bases with expiratory wheeze in RML but no rales, rhonchi. Abdomen: Soft and nontender. +BS x4 Skin: Skin warm and dry. Normal skin color. Normal skin turgor. No rashes. Extremities: No lower extremity edema. No calf tenderness Neuro: Oriented X 3. No motor deficit. No sensory deficit. Course Course Course Narrative: 55 y/o male with hx CHF with EF 35%, recent COVID and diuretic noncompliance presenting with worsening SOB and orthopnea for the last 3 days. Does not peripheral edema on exam but +JVD. Will check CXR, EKG, labs including BNP, suspect acute CHF. Reevaluation(s) Reevaluation #1: CXR with mild diffuse interstitial opacification which is stable from prior film 02/11. BNP elevated 2100 (prior 1300 in September when he got admitted for 1 day of IV diuresis). Discussed admission with patient and Dr. Zarate came to evaluate the patient. Unfortunately the patient is refusing to stay. He would like to be discharged with his water pill and go follow up with his doctors in [place]. He is AAOx3 and has full capacity to make his own medical decisions. He accepts risks of worsening heart failure, respiratory failure and potential . Signed AMA paperwork. MDM - SOB/Dyspnea Medical Records Attestation: I reviewed the patient's medical records. Lab Data Attestation: I reviewed the patient's lab results. Result diagrams: 02/16/21 15:19 02/16/21 15:19 Labs: Lab Results 02/16/21 02/16/21 02/16/21 Range/Units 15:19 15:19 15:19 Sodium 137 (135-145) mmol/L Potassium 4.5 (3.3-5.1) mmol/L Chloride 101 (96-108) mmol/L Carbon Dioxide 29 (22-29) mmol/L Anion Gap 12 (12-20) BUN 23 H (9-16) mg/dL Creatinine 1.00 (0.5-1.4) mg/dL Estim Creat Clear Calc 81.6 Estimated GFR > 60 Random Glucose 198 H D (60-115) mg/dL Calcium 8.6 (8.4-10.2) mg/dL Magnesium 1.7 (1.6-2.6) mg/dL Total Bilirubin 0.5 (0.0-1.0) mg/dL Direct Bilirubin 0.2 (0.0-0.5) mg/dL AST 22 (5-37) U/L ALT 28 (0-40) U/L Alkaline Phosphatase 74 (39-117) U/L Troponin I High Sens 43.4 H (<3.5-35.0) ng/L B-Natriuretic Peptide 2132 H (<100) pg/mL Total Protein 6.5 (6.5-8.0) g/dL Albumin 3.6 (3.5-5.0) g/dL COVID-19 (IESHA) Positive A (Negative) COVID-19 Clin Com See Note ECG Data Attestation: I personally reviewed and interpreted this ECG as follows: ECG interpretation date: 02/16/21 ECG interpretation time: 17:08 Prior ECG tracings: available for review Interpretation: normal sinus rhythm, HR 64, T-wave inversions in V5 and V6 which are improved from prior. QTC prolonged 472. No ST segment elevations. Discharge Plan Discharge Clinical Impression: COVID-19 CHF exacerbation Qualifiers: Heart failure type: systolic Qualified Code(s): I50.23 - Acute on chronic systolic (congestive) heart failure Patient Disposition: Left Against Medical Advice Instructions: Covid-19 Viral Syndrome and Novel Coronavirus (ED) Hey/Ath, Heart Failure (ED) Prescriptions: New furosemide [Lasix] 40 mg tablet 40 mg PO DAILY Qty: 30 RF: 0 No Action losartan 50 mg Tablet 50 mg PO DAILY Qty: 30 RF: 0 carvedilol [Coreg] 3.125 mg tablet 3.125 mg PO BID Qty: 60 RF: 0 furosemide [Lasix] 40 mg tablet 40 mg PO DAILY Qty: 30 RF: 0 dexamethasone [Decadron] 6 mg tablet 6 mg PO DAILY Qty: 7 RF: 0 codeine-guaifenesin 10-100 mg/5 mL liquid 10 ml PO Q4-6H PRN (Reason: cough) Qty: 237 RF: 0 albuterol sulfate [ProAir HFA] 90 mcg/actuation HFA aerosol inhaler 2 puff inhalation Q4-6H PRN (Reason: Wheezing) Qty: 8.5 RF: 0 Stand Alone Forms: Against Medical Advice
--- NOTE | 2021-02-16 14:41 | ECG_ITS ---
Test Reason : SOB Blood Pressure : / mmHG Vent. Rate : 064 BPM Atrial Rate : 064 BPM P-R Int : 144 ms QRS Dur : 088 ms QT Int : 458 ms P-R-T Axes : 060 027 128 degrees QTc Int : 472 ms Normal sinus rhythm Possible Left atrial enlargement Minimal voltage criteria for LVH, may be normal variant ( Sokolow-Delgado ) T wave abnormality, consider lateral ischemia Prolonged QT Abnormal ECG When compared with ECG of 23-SEP-2020 13:23, Premature atrial complexes are no longer Present Nonspecific T wave abnormality now evident in Anterior leads Referred By: Gricelda Osborne Electronically Signed By:Angel Main
[2021-02-16 15:26] LABS: MANUAL DIFF FLAG NO
[2021-02-16 15:37] LABS: COVID-19 Test Positive (Negative); IDNOW Serial# 9DD0AD1C
[2021-02-16 15:42] LABS: Alanine Aminotransferase 28 U/L (0-40); Albumin Level 3.6 g/dL (3.5-5.0); Alkaline Phosphatase 74 U/L (39-117); Anion Gap 12 (12-20); Aspartate Amino Transferase 22 U/L (5-37); Bilirubin Direct 0.2 mg/dL (0.0-0.5); Bilirubin Total 0.5 mg/dL (0.0-1.0); Blood Urea Nitrogen 23 mg/dL (9-16); Calcium 8.6 mg/dL (8.4-10.2); Carbon Dioxide 29 mmol/L (22-29); Chloride 101 mmol/L (96-108); Creatinine Clr Calc Pharmacy 81.6; Estimated Glomerular Filt Rate > 60; Glucose Random 198 mg/dL (60-115); Magnesium 1.7 mg/dL (1.6-2.6); Potassium 4.5 mmol/L (3.3-5.1); Sodium 137 mmol/L (135-145); Total Protein 6.5 g/dL (6.5-8.0)
[2021-02-16 15:47] LABS: B Type Natriuretic Peptide 2132 pg/mL (<100); Troponin-I High Sensitivity 43.4 ng/L (<3.5-35.0)
--- NOTE | 2021-02-16 15:49 | PC.NURSE ---
Pt received: Pt AOX4 and states c/o cough uncompliance with medication as he forgot them at home. Heart sounds normal and lungs clear. No cough noted. Pt abd soft and non-tender.
[2021-02-16] MEDS: Furosemide 40 MG/4 ML VIAL IVPUSH (16:51)
[2021-02-16 16:55] VITALS: BP 153/106; PULSE 60; RESP 18; O2SAT 99
[2021-02-16 17:34] LABS: Hemoglobin 14.5 g/dl (14.0-18.0); Imm Gran Abs Auto 0.03 X10*3/uL (0.00-0.03); Imm Gran Pct Auto 0.5 % (0.0-0.4); Lymphocytes Percent Auto 15.7 % (20-40); Mean Corpuscular Hemoglobin 30.4 pg (27.0-33.0); Mean Corpuscular Volume 92.2 fL (80.0-98.0); Mean Platelet Volume 12.3 fL (9.4-12.4); Monocytes Absolute Auto 0.6 X10*3/uL (0.1-1.2); Neutrophils Absolute Auto 4.7 x10*3/uL (2.0-8.3); Neutrophils Percent Auto 74.8 % (45-73); Platelet Count 209 X10*3/uL (160-400); Red Blood Count 4.77 X10*6/uL (4.60-5.80); Red Cell Distribution Width 13.2 % (11.0-16.0); White Blood Count 6.3 X10*3/uL (4.8-10.8)
== END 2021-02-16 17:22 | disposition left against medical advice (07) ==
PROVIDERS: Physician Assistant; Emergency Provider Emergency Medicine
DX: U07.1 COVID-19 (principal); R06.02 Shortness of breath; I11.0 Hypertensive heart disease with heart failure; I50.9 Heart failure, unspecified; E11.9 Type 2 diabetes mellitus without complications; F17.200 Nicotine dependence, unspecified, uncomplicated; Z91.14 Patient's other noncompliance with medication regimen
CPT/HCPCS: 36415; 71045; 80048; 80076; 83735; 83880; 84484; 85025; 87635; 93005; 96374; 99283; 99284; J1940

== ENCOUNTER 2021-06-25 09:27 | Inpatient (IN) | payer MEDICAID, SELFPAY ==
[2021-06-25] VITALS (8 sets, daily range): BP systolic 159–184; BP diastolic 90–111; PULSE 61–94; RESP 12–24; TEMP 36.6–36.9; O2SAT 89–99; BMI 29.0
--- NOTE | ~2021-06-25 | XR_ITS ---
EXAMINATION: XR CHEST CLINICAL INFORMATION: Dyspnea COMPARISON: Chest radiographs 02/16/2021, 02/11/2021, 09/24/2020 TECHNIQUE: Portable upright AP view of the chest was obtained. FINDINGS: There are some fine Anna B lines at the bilateral bases. There is no engorgement central vasculature. Heart is borderline enlarged. There is no lobar or segmental airspace consolidation. Mamillation right diaphragm stable. The hilar and mediastinal contours and bony structures are unremarkable. XR/XR chest 1V IMPRESSION: -Mild interstitial edema. -No airspace consolidation or effusion.
[2021-06-25 09:58] LABS: MANUAL DIFF FLAG NO
[2021-06-25 10:00] LABS: Basophils Percent Auto 0.5 % (0-2); Eosinophils Absolute Auto 0.2 X10*3/uL (0.0-0.4); Eosinophils Percent Auto 3.1 % (0-4); Hematocrit 44.4 % (42.0-52.0); Hemoglobin 13.9 g/dl (14.0-18.0); Imm Gran Abs Auto 0.03 X10*3/uL (0.00-0.03); Imm Gran Pct Auto 0.4 % (0.0-0.4); Lymphocytes Absolute Auto 1.2 X10*3/uL (1.2-4.9); Lymphocytes Percent Auto 15.4 % (20-40); Mean Corpuscular HGB Conc 31.3 g/dl (31.0-36.0); Mean Corpuscular Hemoglobin 30.6 pg (27.0-33.0); Mean Corpuscular Volume 97.8 fL (80.0-98.0); Mean Platelet Volume 11.4 fL (9.4-12.4); Monocytes Absolute Auto 0.5 X10*3/uL (0.1-1.2); Monocytes Percent Auto 6.7 % (2-11); Neutrophils Absolute Auto 5.7 x10*3/uL (2.0-8.3); Neutrophils Percent Auto 73.9 % (45-73); Platelet Count 218 X10*3/uL (160-400); Red Blood Count 4.54 X10*6/uL (4.60-5.80); Red Cell Distribution Width 13.6 % (11.0-16.0); White Blood Count 7.7 X10*3/uL (4.8-10.8)
[2021-06-25 10:14] LABS: Anion Gap 12 (12-20); Blood Urea Nitrogen 20 mg/dL (9-16); Calcium 9.1 mg/dL (8.4-10.2); Carbon Dioxide 30 mmol/L (22-29); Chloride 106 mmol/L (96-108); Creatinine Clr Calc Pharmacy 77.5; Estimated Glomerular Filt Rate > 60; Glucose Random 121 mg/dL (60-115); Potassium 4.1 mmol/L (3.3-5.1); Sodium 144 mmol/L (135-145)
[2021-06-25 11:05] LABS: B Type Natriuretic Peptide 1472 pg/mL (<100)
--- NOTE | 2021-06-25 11:11 | ED.SOB ---
HPI - SOB/Dyspnea General Chief Complaint: Dyspnea Stated Complaint: SOB 97% 4LPM, RAN OUT OF LASIX PER EMS Time Seen by Provider: 06/25/21 11:11 Source: patient Mode of arrival: EMS Limitations: no limitations History of Present Illness HPI Narrative: ran out of lasix 2 weeks ago but taking other medications - lives in [place] not taking care of himself well per daughter she wants him to move here. He denies drug use but still smokes, breathing much worse this AM. Not usually on home O2 MD elicited complaint: shortness of breath Pertinent past history: asthma and congestive heart failure Onset (ago): day(s) (several but much worse this AM) Context: medication noncompliance and smoke/fume exposure Timing: progressively worsening Severity: severe Exacerbating factors: exertion, movement and coughing Relieving factors: oxygen, rest and upright position Known history of: asthma and congestive heart failure Associated symptoms: cough and wheezing Treatment prior to arrival: none Related Data Home Medications Medication Instructions Recorded Confirmed aspirin 81 mg chewable tablet 81 mg PO DAILY 06/25/21 06/25/21 atorvastatin 40 mg tablet 40 mg PO DAILY 06/25/21 06/25/21 folic acid 1 mg tablet 1 mg PO DAILY 06/25/21 06/25/21 Previous Rx's Medication Instructions Recorded carvedilol 3.125 mg tablet (Coreg) 3.125 mg PO BID #60 tab 09/25/20 furosemide 40 mg tablet (Lasix) 40 mg PO DAILY #30 tab 09/25/20 losartan 50 mg tablet 50 mg PO DAILY #30 tab 09/25/20 Allergies Allergy/AdvReac Type Severity Reaction Status Date / Time seafood Allergy Itching Verified 06/25/21 09:41 Review of Systems Review of Systems: Constitutional : No Fever, No Chills ENT/Mouth : No sore throat, No Rhinorrhea, No Swallowing Difficulty Eyes: No Eye Pain, No Swelling, No Redness Cardiovascular : No Chest Pain, positive SOB, No Orthopnea, no Edema Respiratory : No Cough, No Sputum, No Wheezing, positive dyspnea Gastrointestinal : No Nausea, No Vomiting, No Diarrhea, No abdominal Pain, No Hematochezia, No Melena Genitourinary : No Dysuria, No Urinary Frequency, No Hematuria Musculoskeletal : No joint pain, No Myalgias Skin : No Skin Lesions, No rash Neuro : No Weakness, No Numbness, No Dizziness, No Headache Psych : No Anxiety/Panic, No Depression Heme/Lymph: No Bruising, No Lymphadenopathy Endocrine : No Polyuria, No Polydipsia All other systems reviewed and are negative [facility] Past Medical History Attestation statement: The following information was validated with the patient. Medical History Bronchitis Cardiomyopathy Cigarette smoker Diabetes HTN (hypertension) Social History Social History Household Members: Unknown / Unable to assess Housing: House Housing Other:: homeless Do you presently have visiting nurse or other home services: No Alcohol intake: former Patient Tobacco Use Status: Current someday Tobacco user Tobacco use type: Cigarette Cigarettes Per Day: 3 Smoked in Last 30 Days: Yes Patient Interested in Nicotine Replacement: No Patient Given Instructions on How to Stop Smoking: Yes Date Education Initiated: 06/25/21 Second Hand Smoke Exposure: No Use of substances other than those prescribed or required for medical reasons: No Substance Use Type: Crack/Cocaine Substance Use Frequency: Chronic Longstanding Have you been hit, kicked, punched, or otherwise hurt by someone within the past year? If so, by whom?: No Do you feel safe in your current relationship?: No Current Relationship Is there a partner from a previous relationship who is making you feel unsafe now?: No Are you made to feel afraid or neglected: No Advance Directives: No Advance Directives Information Provided: Yes Do you have thoughts of harming others: None Do you have a plan to hurt others: No Plan Recently lost weight without trying: Unsure Nutrition Risks: No Nutritional Risk Poor oral hygiene: No service: No Physical Exam Vital Signs: Vital Signs: Last Vital Signs Temp 97.8 F 06/25/21 20:00 Pulse 68 06/25/21 20:00 Resp 18 06/25/21 20:00 BP 170/90 H 06/25/21 20:00 Pulse Ox 92 06/25/21 20:00 BMI result Body Mass Index 29.0 Appearance: Alert. Oriented X3. Mild acute distress. Eyes: Pupils equal, round and reactive to light. ENT: Pharynx normal. Neck: Normal inspection. Neck supple. CVS: Normal heart rate and rhythm. Pulses normal. Respiratory: Mild respiratory distress. Breath sounds very diminished with rales at bases, mild wheezes upper lobes Abdomen: Soft and nontender. Skin: Skin warm and dry. Normal skin color. Normal skin turgor. Extremities: No lower extremity edema. No calf ttp Neuro: Oriented X 3. No motor deficit. No sensory deficit. 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 He does not use drugs per his report but still smokes at this time no sig peripheral edema will obtain labs, CXR, EKG - IV lasix, neb treatment IV steroids. Needs refills of his medications if he improves in the ED. Daughter plans to find him a PCP in the area. Lab Data Result diagrams: 06/25/21 09:55 06/25/21 09:55 Labs: Lab Results 06/25/21 06/25/21 06/25/21 Range/Units 09:55 09:55 09:55 WBC 7.7 (4.8-10.8) X10*3/uL RBC 4.54 L (4.60-5.80) X10*6/uL Hgb 13.9 L (14.0-18.0) g/dl Hct 44.4 (42.0-52.0) % MCV 97.8 (80.0-98.0) fL MCH 30.6 (27.0-33.0) pg MCHC 31.3 (31.0-36.0) g/dl RDW 13.6 (11.0-16.0) % Plt Count 218 (160-400) X10*3/uL MPV 11.4 (9.4-12.4) fL Immature Gran % (Auto) 0.4 (0.0-0.4) % Neut % (Auto) 73.9 H (45-73) % Lymph % (Auto) 15.4 L (20-40) % Payne % (Auto) 6.7 (2-11) % Eos % (Auto) 3.1 (0-4) % Baso % (Auto) 0.5 (0-2) % Lymph # (Auto) 1.2 (1.2-4.9) X10*3/uL Payne # (Auto) 0.5 (0.1-1.2) X10*3/uL Eos # (Auto) 0.2 (0.0-0.4) X10*3/uL Baso # (Auto) 0.0 (0.0-0.2) X10*3/uL Abs Immat Gran (auto) 0.03 (0.00-0.03) X10*3/uL Absolute Neuts (auto) 5.7 (2.0-8.3) x10*3/uL Absolute Nucleated RBC 0.000 (0.0-0.012) X10*3/uL Nucleated RBC % (auto) 0.0 (0.0-0.2) /100WBC Sodium 144 (135-145) mmol/L Potassium 4.1 (3.3-5.1) mmol/L Chloride 106 (96-108) mmol/L Carbon Dioxide 30 H (22-29) mmol/L Anion Gap 12 (12-20) BUN 20 H (9-16) mg/dL Creatinine 1.08 (0.5-1.4) mg/dL Estim Creat Clear Calc 77.5 Estimated GFR > 60 Random Glucose 121 H D (60-115) mg/dL Calcium 9.1 (8.4-10.2) mg/dL Troponin I High Sens 40.9 H (<3.5-35.0) ng/L B-Natriuretic Peptide 1472 H (<100) pg/mL COVID-19 (IESHA) (Negative) COVID-19 Clin Com 06/25/21 06/25/21 Range/Units 12:20 13:30 WBC (4.8-10.8) X10*3/uL RBC (4.60-5.80) X10*6/uL Hgb (14.0-18.0) g/dl Hct (42.0-52.0) % MCV (80.0-98.0) fL MCH (27.0-33.0) pg MCHC (31.0-36.0) g/dl RDW (11.0-16.0) % Plt Count (160-400) X10*3/uL MPV (9.4-12.4) fL Immature Gran % (Auto) (0.0-0.4) % Neut % (Auto) (45-73) % Lymph % (Auto) (20-40) % Payne % (Auto) (2-11) % Eos % (Auto) (0-4) % Baso % (Auto) (0-2) % Lymph # (Auto) (1.2-4.9) X10*3/uL Payne # (Auto) (0.1-1.2) X10*3/uL Eos # (Auto) (0.0-0.4) X10*3/uL Baso # (Auto) (0.0-0.2) X10*3/uL Abs Immat Gran (auto) (0.00-0.03) X10*3/uL Absolute Neuts (auto) (2.0-8.3) x10*3/uL Absolute Nucleated RBC (0.0-0.012) X10*3/uL Nucleated RBC % (auto) (0.0-0.2) /100WBC Sodium (135-145) mmol/L Potassium (3.3-5.1) mmol/L Chloride (96-108) mmol/L Carbon Dioxide (22-29) mmol/L Anion Gap (12-20) BUN (9-16) mg/dL Creatinine (0.5-1.4) mg/dL Estim Creat Clear Calc Estimated GFR Random Glucose (60-115) mg/dL Calcium (8.4-10.2) mg/dL Troponin I High Sens 44.2 H (<3.5-35.0) ng/L B-Natriuretic Peptide (<100) pg/mL COVID-19 (IESHA) Negative (Negative) COVID-19 Clin Com See Note ECG Data Attestation: I personally reviewed and interpreted this ECG as follows: ECG interpretation date: 06/25/21 ECG interpretation time: 11:45 Interpretation: Rate: 68 Rhythm: NSR [place]: left, LVH Normal P waves. Normal ANNA. Normal QRS complex. ST T wave : no RICHARD, inverted in 1 and aVL, V5- V6 likely due to strain from LVH qTC: normal prior studies: old 2020 The study has been interpreted contemporaneously by me. . Critical Care Time Critical Care Time Critical Care Time: Yes Total Critical Care Time: 35 Attestation: nitro paste, IV lasix, neb treatment, supplemental O2 for hypoxia I attest to this time spent taking care of the patient Discharge Plan Discharge Clinical Impression: Acute dyspnea CHF exacerbation Qualifiers: Heart failure type: systolic Qualified Code(s): I50.23 - Acute on chronic systolic (congestive) heart failure Asthma with exacerbation Qualifiers: Asthma severity: mild Asthma persistence: intermittent Qualified Code(s): J45.21 - Mild intermittent asthma with (acute) exacerbation Patient Disposition: Admitted As Inpatient Interventions: Admission Worksheet (ED) Last Done: 06/25/21 18:08 Discharge Date/Time: 06/25/21 18:09
--- NOTE | 2021-06-25 11:35 | ECG_ITS ---
Test Reason : sob Blood Pressure : / mmHG Vent. Rate : 068 BPM Atrial Rate : 068 BPM P-R Int : 158 ms QRS Dur : 092 ms QT Int : 426 ms P-R-T Axes : 073 056 156 degrees QTc Int : 452 ms Normal sinus rhythm Possible Left atrial enlargement Left ventricular hypertrophy with repolarization abnormality ( Sokolow-Delgado , [place]harat product ) Abnormal ECG When compared with ECG of 16-FEB-2021 15:14, Nonspecific T wave abnormality, worse in Inferior leads Referred By: Concepcion Noguera Electronically Signed By:AMARJIT FRANCE MD
[2021-06-25] MEDS: Albuterol Sulfate (0.083%) 2.5 MG/3 ML VIAL.NEB 5 MG INHALE (11:55)
[2021-06-25] MEDS: Furosemide 40 MG/4 ML VIAL IVPUSH (11:56)
[2021-06-25] MEDS: Nitroglycerin 2 % Oint 1 GM Packet 0.5 INCH TRANSDERMA (11:56)
[2021-06-25] MEDS: methylPREDNISolone Sod Succ 125 MG/2 ML VIAL IVPUSH (11:56)
[2021-06-25 12:04] LABS: Troponin-I High Sensitivity 40.9 ng/L (<3.5-35.0)
[2021-06-25 12:39] LABS: COVID-19 Test Negative (Negative)
[2021-06-25 13:54] LABS: Troponin-I High Sensitivity 44.2 ng/L (<3.5-35.0)
--- NOTE | 2021-06-25 14:51 | PHA.MEDREC ---
Pharmacy Consult ? Medication Reconciliation Pharmacy has completed the medication reconciliation. Daughter brought RX bottles. Patient is not adherent to medications. Patient had rx bottles from 02/01/21 with medication still in them. Cristina Pedersen, PharmD
--- NOTE | 2021-06-25 15:11 | PM.IMHP ---
History of Present Illness Date of Service: 06/25/21 Chief Complaint: Shortness of breath 55-year-old male with history of cocaine use/cardiomyopathy presents to ER with 3-4 days of worsening shortness of breath. He has had multiple admissions over the last year for same. He states he has been sober from cocaine use for quite some time until recently when his passed. He states he is living in a ch[facility] and has not been faithful with his meds including Coreg and Lasix. He denies daily alcohol use and states he smokes 1 or 2 cigarettes a day. Again when questioned he states recent cocaine use was short lived related to his 's 3 days ago. ER course Chest x-ray consistent with mild interstitial edema; given Lasix 40 IV x1 125 mg methylprednisolone along with a albuterol neb. Troponins mildly elevated BNP elevated as well. Review of Systems Review of Systems: Denies chest pain Admits to shortness of breath with exertion Denies nausea vomiting diarrhea Denies fever chills PMFSH Medical History Bronchitis Cardiomyopathy Cigarette smoker Diabetes HTN (hypertension) Social History Household Members: Other Housing: House Do you presently have visiting nurse or other home services: No Alcohol intake: former Patient Tobacco Use Status: Current everyday Tobacco user Smoked in Last 30 Days: Yes Use of substances other than those prescribed or required for medical reasons: Yes Substance Use Type: Crack/Cocaine Substance Use Frequency: Chronic Longstanding Advance Directives: No Advance Directives Information Provided: Yes service: No Meds Allergies Allergy/AdvReac Type Severity Reaction Status Date / Time seafood Allergy Itching Verified 06/25/21 09:41 Active Medications: Current Medications Aspirin (Aspirin 81 Mg Tab.Chew) 81 mg PO DAILY [facility] Atorvastatin Calcium (Atorvastatin Calcium 40 Mg Tablet) 40 mg PO DAILY [facility] Carvedilol (Carvedilol 3.125 Mg Tablet) 3.125 mg PO BID [facility]; Protocol Enoxaparin Sodium (Enoxaparin Sodium 40 Mg/0.4 Ml Syringe) 40 mg SUBCUT Q24H [facility] Folic Acid (Folic Acid 1 Mg Tablet) 1 mg PO DAILY [facility] Losartan Potassium (Losartan Potassium 50 Mg Tablet) 50 mg PO DAILY [facility]; Protocol Sodium Chloride (0.9 % Sodium Chloride Flush 3 Ml Syringe) 3 ml IVFLUSH QSHIFT [facility] Home Medications Medication Instructions Recorded Confirmed Last Taken Type aspirin 81 mg chewable tablet 81 mg PO DAILY 06/25/21 06/25/21 Unknown History atorvastatin 40 mg tablet 40 mg PO DAILY 06/25/21 06/25/21 Unknown History folic acid 1 mg tablet 1 mg PO DAILY 06/25/21 06/25/21 Unknown History Physical Exam Vital Signs and Narrative: Vital Signs: Last Vital Signs Temp 98.5 F 06/25/21 13:41 Pulse 64 06/25/21 13:41 Resp 12 06/25/21 13:41 BP 160/105 H 06/25/21 13:41 Pulse Ox 89 L 06/25/21 13:52 BMI result Body Mass Index 29.0 Const: Other: Awake alert oriented x3 no acute distress Neck: Other: Mild JVD Resp: Other: Diminished at bases with fine crackles noted bilaterally. There are diffuse expiratory wheezes noted Cardio: Other: No S4; positive S1-S2; no S3 murmurs rubs or gallops GI: Other: Soft nontender nondistended with normoactive bowel sounds Neuro: Other: Cranial nerves 2-12 grossly intact as tested. Motor 5/5 all extremities. Sensation intact. Cognition appropriate Extrem: Other: No edema bilaterally Results Labs CBC and Chem 7: 06/25/21 09:55 06/25/21 09:55 Labs: Laboratory Results - last 24 hr 06/25/21 06/25/21 06/25/21 09:55 09:55 09:55 MCV 97.8 MCH 30.6 MCHC 31.3 RDW 13.6 Plt Count 218 MPV 11.4 Immature Gran % (Auto) 0.4 Neut % (Auto) 73.9 H Lymph % (Auto) 15.4 L Gregory % (Auto) 6.7 Eos % (Auto) 3.1 Baso % (Auto) 0.5 Lymph # (Auto) 1.2 Gregory # (Auto) 0.5 Eos # (Auto) 0.2 Baso # (Auto) 0.0 Abs Immat Gran (auto) 0.03 Absolute Neuts (auto) 5.7 Absolute Nucleated RBC 0.000 Nucleated RBC % (auto) 0.0 Anion Gap 12 Estim Creat Clear Calc 77.5 Estimated GFR > 60 Random Glucose 121 H D Calcium 9.1 Troponin I High Sens 40.9 H B-Natriuretic Peptide 1472 H COVID-19 (IESHA) COVID-19 Clin Com 06/25/21 06/25/21 12:20 13:30 MCV MCH MCHC RDW Plt Count MPV Immature Gran % (Auto) Neut % (Auto) Lymph % (Auto) Gregory % (Auto) Eos % (Auto) Baso % (Auto) Lymph # (Auto) Gregory # (Auto) Eos # (Auto) Baso # (Auto) Abs Immat Gran (auto) Absolute Neuts (auto) Absolute Nucleated RBC Nucleated RBC % (auto) Anion Gap Estim Creat Clear Calc Estimated GFR Random Glucose Calcium Troponin I High Sens 44.2 H B-Natriuretic Peptide COVID-19 (IESHA) Negative COVID-19 Clin Com See Note Imaging Radiologist's Impressions: Impressions Chest X-Ray 06/25/21 12:15 IMPRESSION: -Mild interstitial edema. -No airspace consolidation or effusion. Assessment and Plan (1) CHF exacerbation: Qualifiers: Heart failure type: systolic Qualified Code(s): I50.23 - Acute on chronic systolic (congestive) heart failure Status: Acute (2) Asthma with exacerbation: Qualifiers: Asthma persistence: intermittent Asthma severity: mild Qualified Code(s): J45.21 - Mild intermittent asthma with (acute) exacerbation Status: Acute (3) Cardiomyopathy: Status: Acute (4) HTN (hypertension): Status: Acute Plan 55-year-old noncompliant male with history of cocaine induced cardiomyopathy and asthma presents with acute exacerbation most likely related to unavailability of medicines. ER evaluation consistent with mild failure in the backdrop of asthma exacerbation. Fair response to initial therapies 1. Acute systolic heart failure -will dose with IV Lasix q.12 initially -restart outpatient therapies -2D echo in a.m. -cardiology consult -follow renals/divalents/BNP 2. Asthma exacerbation -will continue steroids/nebs -titrate O2 to maintain sats greater than 92% 3. Hypertension -restart Coreg and losartan -follow-up clinically and adjust as indicated Full code Lovenox Patient will require at least 2 midnights going forward to treat acute exacerbation of CHF and asthma exacerbation. This cannot be achieved and a lesser acute setting Quality Stroke Does the patient have a stroke diagnosis?: No VTE Prior VTE?: No VTE Risk Level:: Medical - moderate - high VTE Device Contraindication: Treatment Not Indicated VTE Drug Contraindication: N/A - Med Ordered
[2021-06-25] MEDS: 0.9 % Sodium Chloride Flush 3 ML SYRINGE IVFLUSH ×2 (17:10→20:26)
--- NOTE | 2021-06-25 17:55 | ECG_ITS ---
Test Reason : GENERAL MEDICAL Blood Pressure : / mmHG Vent. Rate : 063 BPM Atrial Rate : 063 BPM P-R Int : 162 ms QRS Dur : 100 ms QT Int : 498 ms P-R-T Axes : 066 048 183 degrees QTc Int : 509 ms Normal sinus rhythm Possible Left atrial enlargement Left ventricular hypertrophy ( Sokolow-Delgado , [place] product , Romhilt-Gaviria ) T wave abnormality, consider anterolateral ischemia Prolonged QT Abnormal ECG When compared with ECG of 25-JUN-2021 11:35, QT has lengthened Referred By: Melba Thomas Electronically Signed By:AMARJIT FRANCE MD
[2021-06-25] MEDS: carvediloL 3.125 MG TABLET PO (20:25)
[2021-06-26] VITALS (7 sets, daily range): BP systolic 140–169; BP diastolic 83–104; PULSE 68–77; RESP 14–18; TEMP 36.6–37.4; O2SAT 94–98
--- NOTE | 2021-06-26 07:00 | CA_ITS ---
Transthoracic Echocardiogram Patient (Last, First, Middle): Josh Erwin, Gender: Male Date of : 1965 Age: 55 Procedure Date: 06/26/2021 Procedure Type: Transthoracic Echocardiogram Location: [facility] [place] Height: 167.64 cm Weight: 81.65 kg BSA: 1.91 m2 Heart Rate: bpm BP: 161 / 92 mmHg Contour Band Saw Operator Vertical: VH/TO Referring MD: Melba Thomas MD Excavating Machine Operator: Navneet Bernal MD Symptoms: NICM, chf Study Quality: Good ECG Rhythm: Sinus Conclusions: - 1. Moderately dilated left ventricle with moderate LVH with moderate LV systolic dysfunction with LVEF of 35-40% with grade 2 diastolic dysfunction 2. Severely dilated left atrium 3. Normal cardiac valvular Doppler 4. Normal RV systolic pressure 5. Mildly dilated ascending aorta 6. No gross pericardial effusion Findings Left Ventricle Moderately increased left ventricular cavity size. There is moderately increased left ventricular wall thickness. The left ventricular systolic function is moderately decreased. There is moderate global hypokinesis. Spectral Doppler is indicative of a pseudonormal filling pattern. E/E prime ratio is >15, consistent with elevated filling pressures. Evidence suggests grade II (moderate) diastolic dysfunction. Right Ventricle Moderately increased right ventricular cavity size. There is normal right ventricular systolic function. Atria The left atrium is severely dilated. Interatrial shunt cannot be excluded. The right atrium is mildly dilated. Aortic Valve Normal aortic valve structure and function. There is no aortic valve stenosis. There is no aortic valve regurgitation. Mitral Valve There is mild anterior and posterior mitral leaflet thickening. There is mild mitral valve regurgitation. There is no mitral valve stenosis. Pulmonic Valve The pulmonic valve was not well visualized. Tricuspid Valve Likely normal tricuspid valve structure and function. There is trace tricuspid valve regurgitation. The right ventricular systolic pressure is normal. The right ventricular systolic pressure is 30 mmHg. Normal right atrial pressure. There is no evidence of pulmonary hypertension. Great Vessels The pulmonary artery was not well visualized. There is mild dilatation of the ascending aorta measuring 4.10 cm. Venous The inferior vena cava is normal in size and collapses greater than 50% with inspiration. Pericardium/Pleural There is no evidence of pericardial effusion. Prior Study Comparison No significant change compared to prior study dated: 09/25/2020. Measurements 2D Linear Measurements IVSd: 1.52 0.6-0.9/0.6-1.0 cm LVIDd: 6.31 3.9-5.3/4.2-5.9 cm LVIDd Index: 3.30 2.4-3.2/2.2-3.1 cm/m2 LVIDs: 5.12 2.0-3.6 cm LVPWd: 1.49 0.7-1.1 cm LA Diam: 5.70 2.7-3.8/3.0-4.0 cm LAIDs Index: 2.98 1.5-2.3 cm/m2 LV Mass: 580.65 67-162/88-224 g LV Mass Index: 304.01 43-95/49-115 g/m2 LVOT Diam: 2.40 3.0+(-)1.3 cm 2D Systolic Function EF 4C: 37.90 >55% EF 2C: 32.20 >55% EF BiP: 35.80 >55% Mitral Valve MV Pk E: 0.90 MV PK A: 0.33 MV Decel Time: 280.00 E/A: 2.70 E'Lateral: 8.49 E'Medial: 4.68 E/E' Med: 19.20 E/E' Lat: 10.60 PHT: 82.00 MVA PHT: 2.68 Decel [place]: 3.21 Aortic Valve AoV Pk Gianni: 1.48 AoV Mn Gianni: 1.02 AoV VTI: 0.27 AoV Pk Grad: 9.00 Aov Mn Grad: 5.00 PRIYA Cont.VTI: 2.39 LVOT LVOT Pk Gianni: 0.87 LVOT Mn Gianni: 0.59 LVOT VTI: 0.14 LVOT Pk Grad: 3.00 LVOT Mn Grad: 2.00 LVOT Diam: 2.40 LVOT Area: 4.52 Diastolic Function MV Pk E: 0.90 MV Pk A: 0.33 E/A: 2.70 E'Medial: 4.68 E/E' Med: 19.20 E' Laterial: 8.49 E/E' Lat: 10.60 Right Ventricle TAPSE (mm): 25.70 TVS' Gianni: 12.30 Tricuspid Valve TR Pk Gianni: 2.60 TR Pk Grad: 27.00 RA Press: 3.00 RVSP: 30.00 Great Vessels Aorta Sinus of Valsalva: 3.99 2.0-3.[address] [place]: 3.15 1.7-3.4 cm Ao Asc: 4.10 2.1-3.4 cm Pulmonary Valve PV Pk Gianni: 0.84 Peak PV Grad: 3.00 Updated in Other Vendor System with Status of Final Navneet Bernal MD electronically signed on 06/26/2021 5:28:21 PM with status of Final
[2021-06-26 07:54] LABS: MANUAL DIFF FLAG NO
[2021-06-26 08:03] LABS: Basophils Percent Auto 0.1 % (0-2); Eosinophils Percent Auto 0.2 % (0-4); Hematocrit 42.3 % (42.0-52.0); Hemoglobin 13.5 g/dl (14.0-18.0); Imm Gran Abs Auto 0.07 X10*3/uL (0.00-0.03); Imm Gran Pct Auto 0.4 % (0.0-0.4); Lymphocytes Absolute Auto 1.3 X10*3/uL (1.2-4.9); Lymphocytes Percent Auto 6.7 % (20-40); Mean Corpuscular HGB Conc 31.9 g/dl (31.0-36.0); Mean Corpuscular Hemoglobin 30.3 pg (27.0-33.0); Mean Corpuscular Volume 94.8 fL (80.0-98.0); Mean Platelet Volume 11.8 fL (9.4-12.4); Monocytes Absolute Auto 1.2 X10*3/uL (0.1-1.2); Monocytes Percent Auto 6.1 % (2-11); Neutrophils Absolute Auto 16.6 x10*3/uL (2.0-8.3); Neutrophils Percent Auto 86.5 % (45-73); Platelet Count 238 X10*3/uL (160-400); Red Blood Count 4.46 X10*6/uL (4.60-5.80); Red Cell Distribution Width 13.3 % (11.0-16.0); White Blood Count 19.1 X10*3/uL (4.8-10.8)
[2021-06-26 08:42] LABS: Alanine Aminotransferase 32 U/L (0-40); Albumin Level 3.3 g/dL (3.5-5.0); Alkaline Phosphatase 112 U/L (39-117); Anion Gap 13 (12-20); Aspartate Amino Transferase 18 U/L (5-37); Bilirubin Total 0.3 mg/dL (0.0-1.0); Blood Urea Nitrogen 24 mg/dL (9-16); Calcium 9.1 mg/dL (8.4-10.2); Carbon Dioxide 27 mmol/L (22-29); Chloride 105 mmol/L (96-108); Estimated Glomerular Filt Rate > 60; Glucose Fasting 195 mg/dL (60-99); Potassium 3.6 mmol/L (3.3-5.1); Sodium 141 mmol/L (135-145); Total Protein 5.9 g/dL (6.5-8.0)
[2021-06-26] MEDS: Aspirin 81 MG TAB.CHEW PO (08:59)
[2021-06-26] MEDS: 0.9 % Sodium Chloride Flush 3 ML SYRINGE IVFLUSH ×3 (09:00→20:09)
[2021-06-26] MEDS: Losartan Potassium 50 MG TABLET PO ×2 (09:00→20:09)
[2021-06-26] MEDS: carvediloL 3.125 MG TABLET PO ×2 (09:00→20:09)
[2021-06-26] MEDS: Atorvastatin Calcium 40 MG TABLET PO (09:00)
[2021-06-26] MEDS: Folic Acid 1 MG TABLET PO (09:00)
--- NOTE | 2021-06-26 10:19 | PM.CNCAR ---
History of Present Illness History of Present Illness Date of Service: 06/26/21 Requesting physician: Melba Thomas Consult reason: congestive heart failure Chief complaint: Acute congestive heart failure Narrative: I was consulted to see palpable 0 in cardiology consultation today for decompensated heart failure. Patient is 55-year-old male with prior history of cardiomyopathy with moderate LV systolic dysfunction with LVEF of 35-40% on medications in the past but ran out of medication about a week ago. He says he has issues because he is homeless, does not have insurance as per him. He does not have a primary care physician. He ran out of medicine about a week ago started noticing that he was getting more more short of breath but shortness of breath got severely worse yesterday and he came to the emergency room. Was noted to be in pulmonary edema. He was diuresed and currently says he feels extremely well and wants to go home. His blood pressure remains uncontrolled. In the past he had the cocaine use issues. Currently said he completely denies cocaine use. However this needs to be ruled out to appropriately treat and uptitrate his medications safely. He has had no other workup or follow-up in the past. He denies any palpitations, chest pain. No headaches. No neurologic issues. He denies prior having myocardial infarction. Does have history of hypertension. Review of Systems Constitutional: Constitutional: Reports no additional constitutional complaints Eyes: Eyes: Reports no additional eye complaints Cardiovascular: Cardiovascular: Denies chest pain, Denies rapid heart rate, Denies lightheadedness, Denies Loss of Consciousness, Denies palpitations, Reports dyspnea on exertion and Reports orthopnea Respiratory: Respiratory: Reports no additional respiratory complaints and Reports dyspnea on exertion Gastrointestinal: Gastrointestinal: Reports no additional gastrointestinal complaints Genitourinary: Genitourinary: Reports no additional male genitourinary complaints Musculoskeletal: Musculoskeletal: Reports no additional musculoskeletal complaints Integumentary/Breasts: Skin/Breast: Reports system reviewed and no additional complaints, except as docu Neurologic: Reports system reviewed and no additional complaints, except as documented Psychiatric: Psychiatric: Reports no additional psychiatric complaints Endocrine: Endocrine: Reports no additional endocrine complaints and Denies palpitations Hematologic/Lymphatic: Hematologic/Lymphatic: Reports no additional hematologic/lymphatic complaints PMFSH Past Medical History Medical History Bronchitis Cardiomyopathy Cigarette smoker Diabetes HTN (hypertension) Social History Social History Household Members: Unknown / Unable to assess Housing: House Housing Other:: homeless Do you presently have visiting nurse or other home services: No Alcohol intake: former Patient Tobacco Use Status: Current someday Tobacco user Tobacco use type: Cigarette Cigarettes Per Day: 3 Smoked in Last 30 Days: Yes Patient Interested in Nicotine Replacement: No Patient Given Instructions on How to Stop Smoking: Yes Date Education Initiated: 06/25/21 Second Hand Smoke Exposure: No Use of substances other than those prescribed or required for medical reasons: No Substance Use Type: Crack/Cocaine Substance Use Frequency: Chronic Longstanding Currently Displaying Signs/Symptoms of Drug Intoxication Withdrawal: No Have you been hit, kicked, punched, or otherwise hurt by someone within the past year? If so, by whom?: No Do you feel safe in your current relationship?: No Current Relationship Is there a partner from a previous relationship who is making you feel unsafe now?: No Are you made to feel afraid or neglected: No Advance Directives: No Advance Directives Information Provided: Yes Do you have thoughts of harming others: None Do you have a plan to hurt others: No Plan Recently lost weight without trying: Unsure Nutrition Risks: No Nutritional Risk Poor oral hygiene: No service: No Meds Allergies Allergy/AdvReac Type Severity Reaction Status Date / Time seafood Allergy Itching Verified 06/25/21 09:41 Active Medications: Current Medications Aspirin (Aspirin 81 Mg Tab.Chew) 81 mg PO DAILY [facility] Last Admin: 06/26/21 08:59 Dose: 81 mg Documented by: Atorvastatin Calcium (Atorvastatin Calcium 40 Mg Tablet) 40 mg PO DAILY [facility] Last Admin: 06/26/21 09:00 Dose: 40 mg Documented by: Carvedilol (Carvedilol 3.125 Mg Tablet) 3.125 mg PO BID [facility]; Protocol Last Admin: 06/26/21 09:00 Dose: 3.125 mg Documented by: Enoxaparin Sodium (Enoxaparin Sodium 40 Mg/0.4 Ml Syringe) 40 mg SUBCUT Q24H [facility] Last Admin: 06/25/21 17:10 Dose: Not Given Documented by: Folic Acid (Folic Acid 1 Mg Tablet) 1 mg PO DAILY [facility] Last Admin: 06/26/21 09:00 Dose: 1 mg Documented by: Furosemide (Furosemide 40 Mg/4 Ml Vial) 40 mg IVPUSH BID@0900,1800 [facility]; Protocol Losartan Potassium (Losartan Potassium 50 Mg Tablet) 50 mg PO DAILY [facility]; Protocol Last Admin: 06/26/21 09:00 Dose: 50 mg Documented by: Sodium Chloride (0.9 % Sodium Chloride Flush 3 Ml Syringe) 3 ml IVFLUSH QSHIFT [facility] Last Admin: 06/26/21 09:00 Dose: 3 ml Documented by: Home Medications Medication Instructions Recorded Confirmed Last Taken Type aspirin 81 mg chewable tablet 81 mg PO DAILY 06/25/21 06/25/21 Unknown History atorvastatin 40 mg tablet 40 mg PO DAILY 06/25/21 06/25/21 Unknown History folic acid 1 mg tablet 1 mg PO DAILY 06/25/21 06/25/21 Unknown History Physical Exam Vital Signs: Vital Signs: Last Vital Signs Temp 98.1 F 06/26/21 07:38 Pulse 71 06/26/21 07:38 Resp 18 06/26/21 07:38 BP 161/92 H 06/26/21 07:38 Pulse Ox 98 06/26/21 07:38 BMI result Body Mass Index 29.0 Const: General: cooperative, comfortable, no acute distress, well developed, alert and awake Nutritional Appearance: average body habitus Orientation/consciousness: patient oriented x3 Limitations: no limitations HEENT: Head: Yes normocephalic and Yes atraumatic Neck: Neck: Yes trachea midline, Yes supple and Yes no JVD Chest: Chest palpation & inspection: normal inspection of the chest Resp: Effort & Inspection: normal respiratory effort Auscultation: clear to auscultation bilaterally Cardio: Jugular venous distension: no JVD Palpation: abnormal PMI displaced PMI Rate: regular rate Rhythm: regular rhythm and abnormal rhythm Heart sounds: S1 normal heart sound present, S2 abnormal, no click, no gallops, no murmurs and no rubs GI: Auscultation: normal bowel sounds Skin: General skin exam: no rashes or lesions noted Neuro: General: patient oriented x3 and no focal motor deficits Extrem: General: Yes no clubbing, cyanosis or edema Psych: Appearance: grossly normal Objective Labs and Meds Result diagrams: 06/26/21 07:05 06/26/21 07:05 Lab results: Laboratory Results - last 24 hr 06/25/21 06/25/21 06/25/21 09:55 12:20 13:30 WBC RBC Hgb Hct MCV MCH MCHC RDW Plt Count MPV Immature Gran % (Auto) Neut % (Auto) Lymph % (Auto) [place] % (Auto) Eos % (Auto) Baso % (Auto) Lymph # (Auto) [place] # (Auto) Eos # (Auto) Baso # (Auto) Abs Immat Gran (auto) Absolute Neuts (auto) Absolute Nucleated RBC Nucleated RBC % (auto) Sodium Potassium Chloride Carbon Dioxide Anion Gap BUN Creatinine Estim Creat Clear Calc Estimated GFR Fasting Glucose Calcium Total Bilirubin AST ALT Alkaline Phosphatase Troponin I High Sens 40.9 H 44.2 H B-Natriuretic Peptide 1472 H Total Protein Albumin COVID-19 (IESHA) Negative COVID-19 Clin Com See Note 06/26/21 06/26/21 07:05 07:05 WBC 19.1 H RBC 4.46 L Hgb 13.5 L Hct 42.3 MCV 94.8 MCH 30.3 MCHC 31.9 RDW 13.3 Plt Count 238 MPV 11.8 Immature Gran % (Auto) 0.4 Neut % (Auto) 86.5 H Lymph % (Auto) 6.7 L [place] % (Auto) 6.1 Eos % (Auto) 0.2 Baso % (Auto) 0.1 Lymph # (Auto) 1.3 [place] # (Auto) 1.2 Eos # (Auto) 0.0 Baso # (Auto) 0.0 Abs Immat Gran (auto) 0.07 H Absolute Neuts (auto) 16.6 H Absolute Nucleated RBC 0.000 Nucleated RBC % (auto) 0.0 Sodium 141 Potassium 3.6 Chloride 105 Carbon Dioxide 27 Anion Gap 13 BUN 24 H Creatinine 1.06 Estim Creat Clear Calc 79.0 Estimated GFR > 60 Fasting Glucose 195 H D Calcium 9.1 Total Bilirubin 0.3 AST 18 ALT 32 Alkaline Phosphatase 112 D Troponin I High Sens B-Natriuretic Peptide Total Protein 5.9 L Albumin 3.3 L COVID-19 (IESHA) COVID-19 Clin Com EKG shows normal sinus rhythm with LVH with repolarization abnormality question ischemia Imaging Radiologist's impression: Impressions Chest X-Ray 06/25/21 12:15 IMPRESSION: -Mild interstitial edema. -No airspace consolidation or effusion. Assessment and Plan (1) CHF exacerbation: Qualifiers: Heart failure type: systolic Qualified Code(s): I50.23 - Acute on chronic systolic (congestive) heart failure Status: Acute Patient comes with acute congestive heart failure most likely related to acute hypertension question myocardial ischemia question cocaine use. This also due to noncompliance with medications and follow-up. Importance of follow-up and treatment was discussed with him. He said he understands please add would consider a U tox as this will help with further management options. Currently appears to be euvolemic and well compensated. Switch to oral diuretic regimen. Better blood pressure control needs to be pursued. Add Aldactone 25 mg to his regimen. Increase losartan to 50 mg b.i.d.. If his urine toxicology is negative for cocaine will up titrate carvedilol therapy. Complete abstinence from cocaine and other drugs was discussed with him. Importance of outpatient follow-up was discussed. Given his cardiomyopathy process and cocaine use and risk factors will need ischemic workup for further evaluation of his LV systolic dysfunction. This was discussed with him. Advised to follow up as outpatient he agrees for the testing as long as he says he has medical coverage. Social intervention with case management involvement is absolutely necessary to prevent recurrent hospitalizations. (2) Uncontrolled hypertension: Status: Acute Uncontrolled hypertension. This needs better control prior to discharge. Up titrate medications as above and had Aldactone. Once his blood pressure is better control and he is doing well can be potentially discharged home tomorrow. Follow-up renal function and electrolytes tomorrow after addition of this medications. Will sign of the case. Thank you for allowing me to partake in his care Procedures Date of Service Date of Service: 06/26/21
--- NOTE | 2021-06-26 11:46 | MHC.CM.PN ---
met with pt and is dgter hcp filed and placed on chart angie reed his dgter as his agent..pt will be moving to [facility] from [place] he will be living with his dgter phamplet given to dgter home no services is expected dc plan
--- NOTE | 2021-06-26 14:36 | HO.PM.IMPN ---
Subjective Subjective Date of Service: 06/26/21 Interval History: Dyspnea improved No chest pain Review of Systems Review of Systems: Yes all other systems are reviewed and are negative Physical Exam Vital Signs: Vital Signs: Last Vital Signs Temp 97.8 F 06/26/21 11:43 Pulse 68 06/26/21 11:43 Resp 18 06/26/21 11:43 BP 164/99 H 06/26/21 11:43 Pulse Ox 96 06/26/21 11:43 BMI result Body Mass Index 29.0 Gen: mild resp distress HEENT: sclera anicteric, moist mucus membranes Neck: supple Lungs: scattered exp wheezing Heart: regular rate and rhythm, no murmurs Abd: soft, non-tender, non-distended Ext: no edema Skin: warm/well-perfused Neuro: alert and oriented x3, no focal findings Psych: appropriate affect Objective Data Active Medications Aspirin (Aspirin 81 Mg Tab.Chew) 81 mg PO DAILY [facility] Last Admin: 06/26/21 08:59 Dose: 81 mg Documented by: YANELIS Atorvastatin Calcium (Atorvastatin Calcium 40 Mg Tablet) 40 mg PO DAILY [facility] Last Admin: 06/26/21 09:00 Dose: 40 mg Documented by: YANELIS Carvedilol (Carvedilol 3.125 Mg Tablet) 3.125 mg PO BID [facility]; Protocol Last Admin: 06/26/21 09:00 Dose: 3.125 mg Documented by: YANELIS Enoxaparin Sodium (Enoxaparin Sodium 40 Mg/0.4 Ml Syringe) 40 mg SUBCUT Q24H [facility] Last Admin: 06/25/21 17:10 Dose: Not Given Documented by: RENA Non-Admin Reason: Patient Refused Folic Acid (Folic Acid 1 Mg Tablet) 1 mg PO DAILY [facility] Last Admin: 06/26/21 09:00 Dose: 1 mg Documented by: YANELIS Furosemide (Furosemide 40 Mg/4 Ml Vial) 40 mg IVPUSH BID@0900,1800 [facility]; Protocol Losartan Potassium (Losartan Potassium 50 Mg Tablet) 50 mg PO DAILY [facility]; Protocol Last Admin: 06/26/21 09:00 Dose: 50 mg Documented by: YANELIS Sodium Chloride (0.9 % Sodium Chloride Flush 3 Ml Syringe) 3 ml IVFLUSH QSHIFT [facility] Last Admin: 06/26/21 09:00 Dose: 3 ml Documented by: YANELIS Labs CBC & Chem 7: 06/26/21 07:05 06/26/21 07:05 Labs: Laboratory Results - last 24 hr 06/26/21 06/26/21 07:05 07:05 MCV 94.8 MCH 30.3 MCHC 31.9 RDW 13.3 Plt Count 238 MPV 11.8 Immature Gran % (Auto) 0.4 Neut % (Auto) 86.5 H Lymph % (Auto) 6.7 L [place] % (Auto) 6.1 Eos % (Auto) 0.2 Baso % (Auto) 0.1 Lymph # (Auto) 1.3 [place] # (Auto) 1.2 Eos # (Auto) 0.0 Baso # (Auto) 0.0 Abs Immat Gran (auto) 0.07 H Absolute Neuts (auto) 16.6 H Absolute Nucleated RBC 0.000 Nucleated RBC % (auto) 0.0 Anion Gap 13 Estim Creat Clear Calc 79.0 Estimated GFR > 60 Fasting Glucose 195 H D Calcium 9.1 Total Bilirubin 0.3 AST 18 ALT 32 Alkaline Phosphatase 112 D Total Protein 5.9 L Albumin 3.3 L Assessment and Plan (1) Uncontrolled hypertension: Status: Acute (2) CHF exacerbation: Status: Acute Plan hospital d#2 55yo M with cocaine-induced NICM + asthma admitted for acute asthma exacerbation, [id number] HFrEF # acute/chronic HFrEF [LVEF 35% 09/25/20] - diuresed to euvolemia, IV->PO furosemide, TTE, b-harmony with caution pending Utox, ARB,Cardiology following # uncontrolled HTN - continue carvedilol, increase losartan, add spironolactone. to consider increasing carvedilol if Utox neg for cocaine # acute asthma exacerbation - steroids, prn nebs # acute hypoxic resp failure - resolved, weaned off O2 # cocaine abuse - Utox, CARE TEam consult - screen for HBV/HCV/HIV # VTE ppx - LMWH In my clinical judgment, the patient requires continued hospitalization for the following reasons: uncontrolled HTN, resp failure Quality Stroke Does the patient have a stroke diagnosis?: No VTE Prior VTE?: No VTE Risk Level:: Medical - moderate - high VTE Device Contraindication: Treatment Not Indicated VTE Drug Contraindication: N/A - Med Ordered
[2021-06-26] MEDS: Spironolactone 25 MG TABLET PO (16:26)
[2021-06-26] MEDS: predniSONE 20 MG TABLET 40 MG PO (16:26)
[2021-06-26] MEDS: Furosemide 40 MG/4 ML VIAL IVPUSH (16:26)
[2021-06-26] MEDS: Famotidine/PF 20 MG/2 ML VIAL IVPUSH (21:31)
[2021-06-26] MEDS: Melatonin 3 MG TABLET 6 MG PO (21:31)
[2021-06-27 04:00] VITALS: BP 138/92; PULSE 55; RESP 18; TEMP 36.4; O2SAT 96
[2021-06-27 06:33] LABS: Basophils Percent Auto 0.1 % (0-2); Hematocrit 45.1 % (42.0-52.0); Hemoglobin 14.6 g/dl (14.0-18.0); Imm Gran Abs Auto 0.09 X10*3/uL (0.00-0.03); Imm Gran Pct Auto 0.5 % (0.0-0.4); Lymphocytes Percent Auto 5.4 % (20-40); MANUAL DIFF FLAG SCAN; Mean Corpuscular HGB Conc 32.4 g/dl (31.0-36.0); Mean Corpuscular Hemoglobin 30.4 pg (27.0-33.0); Mean Corpuscular Volume 93.8 fL (80.0-98.0); Mean Platelet Volume 11.7 fL (9.4-12.4); Monocytes Absolute Auto 0.6 X10*3/uL (0.1-1.2); Monocytes Percent Auto 3.6 % (2-11); Neutrophils Absolute Auto 16.2 x10*3/uL (2.0-8.3); Neutrophils Percent Auto 90.4 % (45-73); Platelet Count 231 X10*3/uL (160-400); Red Blood Count 4.81 X10*6/uL (4.60-5.80); Red Cell Distribution Width 13.5 % (11.0-16.0); SCAN SMEAR FLAG 1; White Blood Count 17.9 X10*3/uL (4.8-10.8)
[2021-06-27 06:51] LABS: Alanine Aminotransferase 31 U/L (0-40); Albumin Level 3.5 g/dL (3.5-5.0); Alkaline Phosphatase 87 U/L (39-117); Anion Gap 13 (12-20); Aspartate Amino Transferase 15 U/L (5-37); Bilirubin Total < 0.2 mg/dL (0.0-1.0); Blood Urea Nitrogen 32 mg/dL (9-16); Calcium 9.5 mg/dL (8.4-10.2); Carbon Dioxide 25 mmol/L (22-29); Chloride 104 mmol/L (96-108); Estimated Glomerular Filt Rate > 60; Glucose Fasting 214 mg/dL (60-99); Potassium 3.9 mmol/L (3.3-5.1); Sodium 138 mmol/L (135-145)
[2021-06-27 06:54] LABS: B Type Natriuretic Peptide 1086 pg/mL (<100)
[2021-06-27 07:08] LABS: SLIDE REVIEW VERIFIED
[2021-06-27 07:19] LABS: HBS Num1 3.28 mIU/mL (0-7.99); HBc Num1 7.57 S/CO (0.00-0.79); HBsAGNum1 0.15 S/CO (0.00-0.99); HIV AB/AG Nonreactive (Nonreactive); HIV Num 1 0.07 S/CO (0.00-0.99); Hepatitis B Surface Antigen Negative (Negative); ~HepC Num1 0.32 S/CO (0.00-0.79); ~Hepatitis B Surface Antibody NONREACTIVE (Nonreactive); ~Hepatitis C Antibody Nonreactive (Nonreactive)
[2021-06-27 07:38] VITALS: BP 158/101; PULSE 65; RESP 18; TEMP 36.7; O2SAT 98
[2021-06-27] MEDS: Folic Acid 1 MG TABLET PO (07:42)
[2021-06-27] MEDS: Aspirin 81 MG TAB.CHEW PO (07:43)
[2021-06-27] MEDS: Losartan Potassium 50 MG TABLET PO (07:43)
[2021-06-27] MEDS: Atorvastatin Calcium 40 MG TABLET PO (07:43)
[2021-06-27] MEDS: Furosemide 40 MG/4 ML VIAL IVPUSH (07:44)
[2021-06-27] MEDS: predniSONE 20 MG TABLET 40 MG PO (07:44)
[2021-06-27] MEDS: 0.9 % Sodium Chloride Flush 3 ML SYRINGE IVFLUSH (07:44)
[2021-06-27] MEDS: Spironolactone 25 MG TABLET PO (07:44)
[2021-06-27] MEDS: carvediloL 3.125 MG TABLET PO (07:44)
[2021-06-27 08:59] LABS: Estimated Average Glucose 131 mg/dL; Hemoglobin A1c % 6.2 %
[2021-06-27 10:29] LABS: Amphetamine Screen Urine Not Detected (Not Detect); Barbiturates, Urine Not Detected (Not Detect); Benzodiazepines Screen Urine Not Detected (Not Detect); Cannabinoid Screen Urine Not Detected (Not Detect); Cocaine Screen Urine Not Detected (Not Detect); Fentanyl, urine Not Detected (Not Detect); Opiate Screen Urine Not Detected (Not Detect); Phencyclidine Screen Urine Not Detected (Not Detect)
--- NOTE | 2021-06-27 10:57 | PM.DS ---
DS: Providers Provider Date of Service: 06/27/21 Date of admission: 06/25/21 15:09 Date of discharge: 06/27/21 Primary care physician: Marcos Physician Consults: 06/26/21 08:08 Consult to Cardiology Routine Consulting Provider: [facility] Cardiovascular Services Reason for consultation: chf 06/26/21 08:09 Consult to Care Team Routine Comment: Reason for consultation: cocaine adjustment DS: Diagnosis Discharge Diagnosis (1) Uncontrolled hypertension: Status: Acute (2) CHF exacerbation: Status: Acute (3) Acute on chronic HFrEF (heart failure with reduced ejection fraction): Status: Acute (4) Cardiomyopathy: Status: Acute (5) Asthma with exacerbation: Status: Acute (6) Cocaine abuse: Status: Acute (7) Acute and chronic respiratory failure with hypoxia: Status: Acute DS: Summary Hospital Course Hospital Course: From admission H+P by hospitalist Scot Main DO, 06/25/21: 55-year-old male with history of cocaine use/cardiomyopathy presents to ER with 3-4 days of worsening shortness of breath.? He has had multiple admissions over the last year for same.? He states he has been sober from cocaine use for quite some time until recently when his passed.? He states he is living in a alf and has not been faithful with his meds including Coreg and Lasix.? He denies daily alcohol use and states he smokes 1 or 2 cigarettes a day.? Again when questioned he states recent cocaine use was short lived related to his 's 3 days ago. ER course Chest x-ray consistent with mild interstitial edema; given Lasix 40 IV x1 125 mg methylprednisolone along with a albuterol neb.? Troponins mildly elevated BNP elevated as we This 55yo M with cocaine-induced NICM + asthma was admitted for acute asthma exacerbation and [id number] HFrEF. He was diuresed with IV furosemide. Echocardiogram showed LVEF 35%, moderate LVH, grade 2 diastolic dysfunction, and severely dilated LA. His blood pressure was noted to be uncontrolled. Carvediol dosage was increased, losartan was switched to Entresto, and spironolactone was started. He should have BMP repeated in 1 week and will need Primary Care and Cardiology follow-ups. For asthma exacerbation, he was treated with steroids and nebulized bronchodilators and was discharged on steroid burst with albuterol inhaler. He was quickly weaned off of O2. Regarding cocaine abuse, this was a 1-time lapse due to the stressor of his passing away. The danger of using cocaine, especially while on a beta-harmony, was counseled and he was committed to sobriety. He was discharged home. Time Spent with Patient Time attestation: Total time spent providing and/or coordinating discharge services: Discharge coordination time: Greater than 30 minutes Quality: Safe Use of Opioids Does Pt have an Active Cancer Diagnosis on the Problem List?: No Quality: Stroke Does the patient have a stroke diagnosis?: No Physical Exam Vital Signs: Vital Signs: Last Vital Signs Temp 98.1 F 06/27/21 07:38 Pulse 65 06/27/21 07:38 Resp 18 06/27/21 07:38 BP 158/101 H 06/27/21 07:38 Pulse Ox 98 06/27/21 07:38 BMI result Body Mass Index 29.0 Gen: in no acute distress HEENT: sclera anicteric, moist mucus membranes Neck: supple Lungs: clear to auscultation bilaterally Heart: regular rate and rhythm, no murmurs, PMI laterally displaced Abd: soft, non-tender, non-distended Ext: no edema Skin: warm/well-perfused Neuro: alert and oriented x3, no focal findings Psych: appropriate affect DS: Data Data Completed and Pending Completed studies during hospitalization [Text1]: Laboratory Results WBC 17.9 X10*3/uL (4.8-10.8) H 06/27/21 05:56 RBC 4.81 X10*6/uL (4.60-5.80) 06/27/21 05:56 Hgb 14.6 g/dl (14.0-18.0) 06/27/21 05:56 Hct 45.1 % (42.0-52.0) 06/27/21 05:56 MCV 93.8 fL (80.0-98.0) 06/27/21 05:56 MCH 30.4 pg (27.0-33.0) 06/27/21 05:56 MCHC 32.4 g/dl (31.0-36.0) 06/27/21 05:56 RDW 13.5 % (11.0-16.0) 06/27/21 05:56 Plt Count 231 X10*3/uL (160-400) 06/27/21 05:56 MPV 11.7 fL (9.4-12.4) 06/27/21 05:56 Immature Gran % (Auto) 0.5 % (0.0-0.4) H 06/27/21 05:56 Neut % (Auto) 90.4 % (45-73) H 06/27/21 05:56 Lymph % (Auto) 5.4 % (20-40) L 06/27/21 05:56 [place] % (Auto) 3.6 % (2-11) 06/27/21 05:56 Eos % (Auto) 0.0 % (0-4) 06/27/21 05:56 Baso % (Auto) 0.1 % (0-2) 06/27/21 05:56 Lymph # (Auto) 1.0 X10*3/uL (1.2-4.9) L 06/27/21 05:56 [place] # (Auto) 0.6 X10*3/uL (0.1-1.2) 06/27/21 05:56 Eos # (Auto) 0.0 X10*3/uL (0.0-0.4) 06/27/21 05:56 Baso # (Auto) 0.0 X10*3/uL (0.0-0.2) 06/27/21 05:56 Abs Immat Gran (auto) 0.09 X10*3/uL (0.00-0.03) H 06/27/21 05:56 Absolute Neuts (auto) 16.2 x10*3/uL (2.0-8.3) H 06/27/21 05:56 Absolute Nucleated RBC 0.000 X10*3/uL (0.0-0.012) 06/27/21 05:56 Nucleated RBC % (auto) 0.0 /100WBC (0.0-0.2) 06/27/21 05:56 Smear Tech's Comments VERIFIED 06/27/21 05:56 Sodium 138 mmol/L (135-145) 06/27/21 05:56 Potassium 3.9 mmol/L (3.3-5.1) 06/27/21 05:56 Chloride 104 mmol/L (96-108) 06/27/21 05:56 Carbon Dioxide 25 mmol/L (22-29) 06/27/21 05:56 Anion Gap 13 (12-20) 06/27/21 05:56 BUN 32 mg/dL (9-16) H 06/27/21 05:56 Creatinine 1.06 mg/dL (0.5-1.4) 06/27/21 05:56 Estim Creat Clear Calc 78.0 06/27/21 05:56 Estimated GFR > 60 06/27/21 05:56 Random Glucose 121 mg/dL (60-115) H D 06/25/21 09:55 Fasting Glucose 214 mg/dL (60-99) H 06/27/21 05:56 Estimat Average Glucose 131 mg/dL 06/27/21 05:56 Hemoglobin A1c % 6.2 % 06/27/21 05:56 Calcium 9.5 mg/dL (8.4-10.2) 06/27/21 05:56 Total Bilirubin < 0.2 mg/dL (0.0-1.0) 06/27/21 05:56 AST 15 U/L (5-37) 06/27/21 05:56 ALT 31 U/L (0-40) 06/27/21 05:56 Alkaline Phosphatase 87 U/L (39-117) D 06/27/21 05:56 Troponin I High Sens 44.2 ng/L (<3.5-35.0) H 06/25/21 13:30 B-Natriuretic Peptide 1086 pg/mL (<100) H 06/27/21 05:56 Total Protein 6.0 g/dL (6.5-8.0) L 06/27/21 05:56 Albumin 3.5 g/dL (3.5-5.0) 06/27/21 05:56 Urine Opiates Screen Not Detected (Not Detect) 06/27/21 10:00 Urine Fentanyl Screen Not Detected (Not Detect) 06/27/21 10:00 Ur Barbiturates Screen Not Detected (Not Detect) 06/27/21 10:00 Ur Phencyclidine Scrn Not Detected (Not Detect) 06/27/21 10:00 Ur Amphetamines Screen Not Detected (Not Detect) 06/27/21 10:00 U Benzodiazepines Scrn Not Detected (Not Detect) 06/27/21 10:00 Urine Cocaine Screen Not Detected (Not Detect) 06/27/21 10:00 U Marijuana (THC) Screen Not Detected (Not Detect) 06/27/21 10:00 COVID-19 (IESHA) Negative (Negative) 06/25/21 12:20 COVID-19 Clin Com See Note 06/25/21 12:20 Impressions Chest X-Ray 06/25/21 12:15 IMPRESSION: -Mild interstitial edema. -No airspace consolidation or effusion. TTE 06/26/21 1. Moderately dilated left ventricle with moderate LVH with? ? moderate LV systolic dysfunction with LVEF of 35-40% with grade 2 diastolic dysfunction? 2. Severely dilated left atrium? 3.? Normal cardiac valvular Doppler? 4.? Normal RV systolic pressure? 5. Mildly dilated ascending aorta? 6.? No gross pericardial effusion? Discharge Plan Discharge Patient Disposition: Home, Self-Care Discharge Diagnosis: CHF exacerbation, uncontrolled hypertension, asthma exacerbation, cocaine abuse Referrals: [facility] [Provider Group] - 1 Week PhysicianMarcos [Primary Care Provider] - 1 Week Navneet Bernal MD [Physician] - 1 Week Discharge Medications: New prednisone 20 mg Tablet 40 mg PO DAILY Qty: 3 0RF spironolactone 25 mg Tablet 25 mg PO DAILY Qty: 30 0RF Protocol: Hold for SBP< HOLD for SBP < : 90 albuterol sulfate 90 mcg/actuation HFA aerosol inhaler 2 puff inhalation Q4-6H PRN (Reason: shortness of breath or wheezing) Qty: 8.5 0RF Entresto 49-51 mg tablet 1 tab PO BID 28 Days Qty: 56 0RF Rx Instructions: replaces losartan carvedilol 6.25 mg tablet 6.25 mg PO BID Qty: 60 0RF Rx Instructions: must administer with a meal/food replaces prior dose of 3.125 mg bid Continued furosemide [Lasix] 40 mg tablet 40 mg PO DAILY Qty: 30 0RF atorvastatin 40 mg Tablet 40 mg PO DAILY 0RF aspirin 81 mg Tablet,Chewable 81 mg PO DAILY 0RF folic acid 1 mg Tablet 1 mg PO DAILY 0RF Discontinued losartan 50 mg Tablet 50 mg PO DAILY Qty: 30 0RF Protocol: Hold for SBP< HOLD for SBP < : 90 carvedilol [Coreg] 3.125 mg tablet 3.125 mg PO BID Qty: 60 0RF Rx Instructions: must administer with a meal/food Discharge Orders: Discharge Order (Routine); Ordered 06/27/21 Ordered By: Melba Thomas Diet: low salt diet Activity on Discharge: As tolerated Stand Alone Forms: Patient Portal Discharge page Other Ambulatory Orders: Basic Metabolic Panel (Routine) Timeframe: 1 Week Facility: [facility] - Location: Laboratory Ordered By: Melba Thomas Care Plan Goals: heart health Health Concerns: CHF exacerbation, uncontrolled hypertension, asthma exacerbation, cocaine abuse Plan of Treatment: take furosemide 40 mg daily take Entresto 49/51 mg twice daily [replaces losartan] take carvedilol 6.25 mg twice daily [replaces prior dose of 3.125 mg twice daily] take spironolactone 25 mg once daily labs in 1 week: basic metabolic panel [non-fasting] take prednisone 40 mg daily for 3 more days use albuterol inhaler for shortness of breath or wheezing avoid cocaine establish primary care doctor KATHY; try [facility] follow up with Cardiology [Dr Bernal] in 2 weeks Assessment: see Discharge Summary Patient Instructions: Hypertension (DC)
--- NOTE | 2021-06-27 11:00 | PM.PNCARD ---
Subjective Subjective Date of Service: 06/27/21 <ABE Chakraborty - Last Filed: 06/27/21 11:16> 06/27/21 <Navneet Bernal MD - Last Filed: 06/27/21 12:29> Principal diagnosis: CHF, CMP, HTN <ABE Chakraborty - Last Filed: 06/27/21 11:16> Interval history: Cardiology follow up for the above. Seen at 1050. Today he reports feeling well and would like to go home. Has his shelter monitor off. He is pleasant and cooperative. Reports breathing much improved since admit. No chest pains, palpitation, dizziness, edema. Has been ambulating in room. States he will be compliant with meds at home and come for office follow up. <ABE Chakraborty - Last Filed: 06/27/21 11:16> Review of Systems Review of Systems as above <ABE Chakraborty - Last Filed: 06/27/21 11:16> Yes all other systems are reviewed and are negative <ABE Chakraborty - Last Filed: 06/27/21 11:16> Physical Exam Vital Signs: Last Vital Signs Temp 98.1 F 06/27/21 07:38 Pulse 65 06/27/21 07:38 Resp 18 06/27/21 07:38 BP 158/101 H 06/27/21 07:38 Pulse Ox 98 06/27/21 07:38 BMI result Body Mass Index 29.0 <ABE Chakraborty - Last Filed: 06/27/21 11:16> Const General: cooperative, healthy appearing, no acute distress, alert and awake <ABE Chakraborty - Last Filed: 06/27/21 11:16> Orientation/consciousness: patient oriented x3 <ABE Chakraborty Last Filed: 06/27/21 11:16> Neck Neck: Yes normal visual inspection and Yes no JVD <ABE Chakraborty - Last Filed: 06/27/21 11:16> Resp Effort & Inspection: normal respiratory effort and able to speak in complete sentences <ABE Chakraborty - Last Filed: 06/27/21 11:16> Auscultation: clear to auscultation bilaterally, crackles (few fine expiratory wheezes noted), no rales and no rhonchi <KIM ChakrabortyC - Last Filed: 06/27/21 11:16> Cardio Rate: regular rate <KIM ChakrabortyC - Last Filed: 06/27/21 11:16> Rhythm: regular rhythm <Farida Messina NPC - Last Filed: 06/27/21 11:16> Heart sounds: S1 normal heart sound present and S2 normal heart sound present <Farida Messina NP-C - Last Filed: 06/27/21 11:16> Peripheral pulses: Peripheral pulses 2+ throughout <Farida Messina NPC - Last Filed: 06/27/21 11:16> GI Inspection: Yes normal to inspection <Farida Messina NP-C - Last Filed: 06/27/21 11:16> Neuro General: patient oriented x3 <Farida Messina NP-C - Last Filed: 06/27/21 11:16> Extrem General: Yes normal to inspection and No edema <Farida Messina NP-C - Last Filed: 06/27/21 11:16> Objective Labs and Meds Result diagrams: : 06/27/21 05:56 06/27/21 05:56 <Farida Messina [employer] - Last Filed: 06/27/21 11:16> Lab results: Laboratory Results - last 24 hr 06/27/21 06/27/21 06/27/21 05:56 05:56 05:56 WBC 17.9 H RBC 4.81 Hgb 14.6 Hct 45.1 MCV 93.8 MCH 30.4 MCHC 32.4 RDW 13.5 Plt Count 231 MPV 11.7 Immature Gran % (Auto) 0.5 H Neut % (Auto) 90.4 H Lymph % (Auto) 5.4 L [place] % (Auto) 3.6 Eos % (Auto) 0.0 Baso % (Auto) 0.1 Lymph # (Auto) 1.0 L [place] # (Auto) 0.6 Eos # (Auto) 0.0 Baso # (Auto) 0.0 Abs Immat Gran (auto) 0.09 H Absolute Neuts (auto) 16.2 H Absolute Nucleated RBC 0.000 Nucleated RBC % (auto) 0.0 Smear Tech's Comments VERIFIED Sodium 138 Potassium 3.9 Chloride 104 Carbon Dioxide 25 Anion Gap 13 BUN 32 H Creatinine 1.06 Estim Creat Clear Calc 78.0 Estimated GFR > 60 Fasting Glucose 214 H Estimat Average Glucose Hemoglobin A1c % Calcium 9.5 Total Bilirubin < 0.2 AST 15 ALT 31 Alkaline Phosphatase 87 D B-Natriuretic Peptide 1086 H Total Protein 6.0 L Albumin 3.5 Urine Opiates Screen Urine Fentanyl Screen Ur Barbiturates Screen Ur Phencyclidine Scrn Ur Amphetamines Screen U Benzodiazepines Scrn Urine Cocaine Screen U Marijuana (THC) Screen 06/27/21 06/27/21 05:56 10:00 WBC RBC Hgb Hct MCV MCH MCHC RDW Plt Count MPV Immature Gran % (Auto) Neut % (Auto) Lymph % (Auto) [place] % (Auto) Eos % (Auto) Baso % (Auto) Lymph # (Auto) [place] # (Auto) Eos # (Auto) Baso # (Auto) Abs Immat Gran (auto) Absolute Neuts (auto) Absolute Nucleated RBC Nucleated RBC % (auto) Smear Tech's Comments Sodium Potassium Chloride Carbon Dioxide Anion Gap BUN Creatinine Estim Creat Clear Calc Estimated GFR Fasting Glucose Estimat Average Glucose 131 Hemoglobin A1c % 6.2 Calcium Total Bilirubin AST ALT Alkaline Phosphatase B-Natriuretic Peptide Total Protein Albumin Urine Opiates Screen Not Detected Urine Fentanyl Screen Not Detected Ur Barbiturates Screen Not Detected Ur Phencyclidine Scrn Not Detected Ur Amphetamines Screen Not Detected U Benzodiazepines Scrn Not Detected Urine Cocaine Screen Not Detected U Marijuana (THC) Screen Not Detected <ABE Chakraborty - Last Filed: 06/27/21 11:16> Progress Note: A&P Assessment and plan (1) Acute on chronic HFrEF (heart failure with reduced ejection fraction): Status: Acute <ABE Chakraborty - Last Filed: 06/27/21 11:16> Assessment and Plan: Hx if Cardiomyopathy and had not been taking meds at home due to social issues/ ran out. Presented with sob. CXR showed mild interstitial edema BNP elevated at 1472. Was initially treated with IV Lasix and then transitioned to PO. He now reports breathing normalized. Lungs do have few expiratory wheezed. He does smoke and states he will work on quiting. BNP down to 1086. Recommend send home with Albuteral inhaler that can be used PRN for sob, wheeze. Continue Lasix, Management for CMP as below. s/s HF reviewed. He states understanding and will be compliant with med and follow up going forward <ABE Chakraborty - Last Filed: 06/27/21 11:16> Hx if Cardiomyopathy and had not been taking meds at home due to social issues/ ran out. Presented with sob. CXR showed mild interstitial edema BNP elevated at 1472. Was initially treated with IV Lasix and then transitioned to PO. He now reports breathing normalized. Lungs do have few expiratory wheezed. He does smoke and states he will work on quiting. BNP down to 1086. Recommend send home with Albuteral inhaler that can be used PRN for sob, wheeze. Continue Lasix, Management for CMP as below. s/s HF reviewed. He states understanding and will be compliant with med and follow up going forward Patient seen and examined. Case discussed with Farida Messina. Patient heart failure symptoms have significantly improved. Blood pressure still remains elevated. Echo shows persistent LV systolic dysfunction. Will switch his losartan to Entresto 49-51 mg b.i.d.. Increase carvedilol to 12.5 mg b.i.d. given his U tox is negative. Continue Aldactone. Importance of follow-up was discussed. Patient is very motivated. Today having some bronchospastic airway disease, consider bronchodilators such as Proventil. Will follow-up as outpatient after ischemic workup. Thank you for allowing me to partake in his care <Navneet Bernal MD - Last Filed: 06/27/21 12:29> (2) Cardiomyopathy: Status: Acute <ABE Chakraborty - Last Filed: 06/27/21 11:16> Assessment and Plan: Echo shows EF 35-40%, grade II diastolic dysfunction, severe LA enlargement, normal RV. He had not been taking his home meds. He was restarted on Carvedilol, Losartan. Aldactone was added. Kidney function normal. K 3.9 today. Am BP still elevated at 158/101. Tox screen this am Neg. Will stop Losartan and change to Entresto. Will increase carvedilol to 6.25mg bid. Continue aldactone. BMP in 1 week after start of entresto. He can be discharged from a cardiology perspective. We will arrange outpt nuclear stress test to eval for ischemia and outpt cardiology follow up. At present, unknown if his CMP is ischemic or nonischemic. Pt agreeable to this plan <ABE Chakraborty - Last Filed: 06/27/21 11:16> (3) Uncontrolled hypertension: Status: Acute <ABE Chakraborty - Last Filed: 06/27/21 11:16> Assessment and Plan: Improving since admit with the restart of his HTN, CMP meds <ABE Chakraborty Last Filed: 06/27/21 11:16> (4) Cigarette smoker: Status: Acute <ABE Chakraborty Last Filed: 06/27/21 11:16> Assessment and Plan: Admits to smoking and tells us that he will be working on smoking cessation. <ABE Chakraborty - Last Filed: 06/27/21 11:16> Time Spent With Patient Time: Total time spent is greater than 50% in coordination of care (as documented) at patient's floor/unit and/or counseling patient: 20 <ABE Chakraborty - Last Filed: 06/27/21 11:16> Progress Note: Quality Stroke Does the patient have a stroke diagnosis?: No <ABE Chakraborty Last Filed: 06/27/21 11:16> Procedures Date of Service Date of Service: 06/27/21 <ABE Chakraborty - Last Filed: 06/27/21 11:16>
[2021-06-27 11:01] VITALS: BP 155/90; PULSE 62; RESP 18; TEMP 36.6; O2SAT 97
--- NOTE | 2021-06-27 11:10 | MHC.CM.PN ---
pt dcd home no skilled services ordered by
[2021-06-27 13:58] LABS: HBc Num2 7.34 S/CO; HBc Num3 7.49 S/CO; Hepatitis B Core Antibody Reactive (Nonreactive)
[2021-06-29 06:57] LABS: Hepatitis B Core Antibody IgM NON-REACTIVE (NON-REACTIVE)
== END 2021-06-27 13:56 | disposition home or self-care (01) | DRG 194 ==
LOC: HO.ED 13:54 → HO.EDOVER 15:23 → HO.IMC 16:52
PROVIDERS: Emergency Medicine; Admitting Provider Hospitalist; Emergency Provider Emergency Medicine; Visit Provider Family Medicine
DX: I11.0 Hypertensive heart disease with heart failure (principal); J96.21 Acute and chronic respiratory failure with hypoxia; I42.9 Cardiomyopathy, unspecified; J45.21 Mild intermittent asthma with (acute) exacerbation; E11.9 Type 2 diabetes mellitus without complications; I50.23 Acute on chronic systolic (congestive) heart failure; F14.10 Cocaine abuse, uncomplicated; F17.210 Nicotine dependence, cigarettes, uncomplicated; Z71.6 Tobacco abuse counseling; Z59.01 Sheltered homelessness; Z91.14 Patient's other noncompliance with medication regimen; Z20.822 Contact with and (suspected) exposure to COVID-19; Z91.013 Allergy to seafood; Z79.52 Long term (current) use of systemic steroids; Z79.82 Long term (current) use of aspirin; Z79.899 Other long term (current) drug therapy
CPT/HCPCS: 36415; 71045; 80048; 80053; 80307; 83036; 83880; 84484; 85025; 86704; 86705; 86706; 86803; 87340; 87389; 87635; 93005; 93306; 94640; 94644; 96374; 96375; 99285; 99291; J1650; J1940; J2930

== ENCOUNTER → 2022-04-03 12:53 | Outpatient (BNVA) | payer MEDICAID, SELFPAY | PROVIDERS: PCP Internal Medicine; Referring Provider Internal Medicine; Visit Provider Nurse Practitioner Family | DX: I11.0 Hypertensive heart disease with heart failure (principal); I50.23 Acute on chronic systolic (congestive) heart failure; I42.9 Cardiomyopathy, unspecified; F17.210 Nicotine dependence, cigarettes, uncomplicated; Z79.899 Other long term (current) drug therapy | CPT/HCPCS: 93005; 99212 ==

== ENCOUNTER 2022-09-08 09:54 | Emergency (ER) | payer MEDICAID, SELFPAY ==
[2022-09-08 10:02] VITALS: BP 142/98; PULSE 66; RESP 18; TEMP 36.4; O2SAT 98; BMI 30.5
--- NOTE | 2022-09-08 12:36 | ED.GENADULT ---
HPI - General Adult General Chief complaint: Dyspnea Stated complaint: sob Time Seen by Provider: 09/08/22 12:31 Source: patient Mode of arrival: ambulatory Limitations: no limitations History of Present Illness HPI narrative: 57 yold male presents to the ED for slight SOB and medication refill of lasix. patient states he ran out of his Lasix. Patient presently denies any chest pain, leg swelling, calf pain, coughing up blood, fever, or chills. Patient states shortness of breath resolved and presently has no shortness of breath. Patient recently discharged from hospital in the [place]/week for CHF exacerbation. Related Data Home Medications Medication Instructions Recorded Confirmed atorvastatin 40 mg tablet 40 mg PO DAILY 06/25/21 04/03/22 folic acid 1 mg tablet 1 mg PO DAILY 06/25/21 04/03/22 acetaminophen 325 mg capsule 650 mg PO Q6H PRN 04/05/22 fluticasone propionate 110 2 puff inhalation BID 04/05/22 mcg/actuation HFA aerosol inhaler ibuprofen 400 mg tablet 400 mg PO TID 04/05/22 loratadine 10 mg tablet 10 mg PO DAILY PRN 04/05/22 nicotine 10 mg inhalation cartridge 1 inh inhalation Q2-4H PRN 04/05/22 tiotropium bromide 1.25 2 puff inhalation QAM 04/05/22 mcg/actuation mist for inhalation Previous Rx's Medication Instructions Recorded furosemide 40 mg tablet (Lasix) 40 mg PO DAILY #30 tabs 09/25/20 albuterol sulfate 90 mcg/actuation 2 puff inhalation Q4-6H PRN 06/27/21 aerosol inhaler shortness of breath or wheezing #8.5 grams carvedilol 6.25 mg tablet 6.25 mg PO BID #60 tabs 06/27/21 prednisone 20 mg tablet 40 mg PO DAILY #3 tabs 06/27/21 sacubitril 49 mg-valsartan 51 mg 1 tab PO BID 4 weeks #56 tabs 06/27/21 tablet (Entresto) spironolactone 25 mg tablet 25 mg PO DAILY #30 tabs 06/27/21 carbamide peroxide 6.5 % ear drops 5 drp otic (ear) left BID PRN ear 09/08/22 (Debrox) wax 4 days #15 mL furosemide 40 mg tablet (Lasix) 40 mg PO DAILY #30 tabs 09/08/22 Allergies Allergy/AdvReac Type Severity Reaction Status Date / Time seafood Allergy Itching Verified 09/08/22 10:02 Review of Systems Review of Systems: Resolved shortness of breath. Medication refill Yes all other systems are reviewed and are negative [facility] Past Medical History Medical History (Updated 09/08/22 @ 12:58 by AGUSTÍN Andres) Bronchitis Cardiomyopathy Cigarette smoker Diabetes HTN (hypertension) Surgical History No pertinent past surgical history Family History Family History Mother Heart disease HTN (hypertension) Diabetes Father No problems noted. Social History Social History Household Members: Unknown / Unable to assess Housing: House Housing Other:: homeless Do you presently have visiting nurse or other home services: No Alcohol intake: never Patient Tobacco Use Status: Current someday Tobacco user Tobacco use type: Cigarette Cigarette Packs Per Day: 0.5 Cigarettes Per Day: 7 Years Smoked: 40 +/- Smoked in Last 30 Days: Yes Second Hand Smoke Exposure: No Use of substances other than those prescribed or required for medical reasons: No Substance Use Type: Crack/Cocaine Advance Directives: Yes Advance Directives on File: Yes Advance Directives Date on File: 06/28/21 service: No Physical Exam ED Vital Signs: Vital Signs - 24 hr 09/08/22 10:02 09/08/22 12:41 Temperature 97.6 F Pulse Rate 66 72 Respiratory Rate 18 20 Blood Pressure 142/98 H 159/110 H Pulse Oximetry 98 99 Oxygen Delivery Method Room Air Room Air BMI result Body Mass Index 30.5 Const General: cooperative, healthy appearing, comfortable, no acute distress, well developed, alert, awake and Physically active Orientation/consciousness: oriented to person, oriented to place, oriented to time and patient oriented x3 HENMT Head: Yes normal to inspection, Yes No palpable skull fracture present, Yes normocephalic, Yes atraumatic and No abrasion Eyes General: appearance normal, both eyes and all related structures Pupils: Equal, round and reactive pupils present EOM: EOMs intact bilaterally Neck Neck: Yes normal visual inspection, Yes full ROM, Yes no lymphadenopathy, Yes no meningeal signs, Yes trachea midline, Yes supple, No anterior neck swelling and No tender Chest Chest palpation & inspection: normal inspection of the chest and normal palpation of entire chest wall Resp Effort & Inspection: normal respiratory effort and able to speak in complete sentences Auscultation: clear to auscultation bilaterally Cardio Jugular venous distension: no JVD Heart sounds: S1 normal heart sound present and S2 normal heart sound present GI Inspection: Yes normal to inspection and No abdominal wall ecchymosis Palpation (GI): Soft to palpation, not firm, nontender, no guarding and not rigid General: No CVA tenderness and Yes no CVA tenderness Back/Spine/Pelvis Back: no CVA tenderness, No CVA tenderness and No back tenderness Skin General skin exam: no rashes or lesions noted, elasticity normal and turgor normal Neuro General: oriented to person, oriented to place, oriented to time, patient oriented x3, gait normal, tone normal, moves all extremities, Normal light touch and pain sensation, no meningeal signs, no focal motor deficits, CN's II-XI intact bilaterally and normal sensation to monofilament Cranial nerves: Yes Equal, round and reactive pupils present Extrem Other: bilateral lower extremity negative for swelling, pitting edema, calf tenderness General: Yes normal to inspection and Yes full ROM Psych Appearance: grossly normal, well kempt and not disheveled Medical Decision Making Medical Decision Making MDM Narrative: 57 year male with past medical history of CHF presents to ED for results shortness of breath and requesting Lasix medication refill. Patient looks stable. Patient refuses medical evaluation such as EKG, blood work, and chest x-ray. Patient explained risk of , disability, worsening shortness of breath, decreased quality of life and he still wants to sign out against medical advice. Patient has appointment tomorrow with new home care chaplain. Patient requesting debrox for ear wax. ear exam positive for cerumen impaction. Differential Diagnosis Differential Diagnoses: The differential diagnosis associated with the presentation includes ( Myocardial infarction, PE, congestive heart failure, pneumonia,) Admission/Observation Consideration of admission/observation: Escalation of care including admission/observation considered Prescription Management I considered prescription management with: Other (lasix) Chronic Conditions noncompliance Discharge Plan Discharge Clinical Impression: Medication refill, Dyspnea Patient Disposition: Left Against Medical Advice Instructions: Dyspnea (ED), Medicine Refill (ED) Additional Instructions: return to the ED immediately for any swelling of lower extremities, calf pain, coughing up blood, fever, chills, chest pain, shortness of breath, weakness, dizziness, shortness of breath on exertion, or any other concerning symptoms. Please follow up with Captain Assistant appointment for tomorrow. Prescriptions: New furosemide [Lasix] 40 mg tablet 40 mg PO DAILY Qty: 30 0RF Debrox 6.5 % drops 5 drp otic (ear) left BID PRN (Reason: ear wax) 4 Days Qty: 15 0RF No Action acetaminophen 325 mg capsule 650 mg PO Q6H PRN fluticasone propionate 110 mcg/actuation HFA aerosol inhaler 2 puff inhalation BID ibuprofen 400 mg tablet 400 mg PO TID loratadine 10 mg tablet 10 mg PO DAILY PRN nicotine 10 mg cartridge 1 inh inhalation Q2-4H PRN tiotropium bromide 1.25 mcg/actuation mist 2 puff inhalation QAM furosemide [Lasix] 40 mg tablet 40 mg PO DAILY Qty: 30 0RF atorvastatin 40 mg Tablet 40 mg PO DAILY folic acid 1 mg Tablet 1 mg PO DAILY prednisone 20 mg Tablet 40 mg PO DAILY Qty: 3 0RF spironolactone 25 mg Tablet 25 mg PO DAILY Qty: 30 0RF Protocol: Hold for SBP< HOLD for SBP < : 90 albuterol sulfate 90 mcg/actuation HFA aerosol inhaler 2 puff inhalation Q4-6H PRN (Reason: shortness of breath or wheezing) Qty: 8.5 0RF Entresto 49-51 mg tablet 1 tab PO BID 28 Days Qty: 56 0RF Rx Instructions: replaces losartan carvedilol 6.25 mg tablet 6.25 mg PO BID Qty: 60 0RF Rx Instructions: must administer with a meal/food replaces prior dose of 3.125 mg bid Stand Alone Forms: Against Medical Advice Interventions: ED Discharge Assessment Last Done: 09/08/22 13:10 Discharge Date/Time: 09/08/22 13:14 Print Language: Maltese
[2022-09-08 12:41] VITALS: BP 159/110; PULSE 72; RESP 20; O2SAT 99
--- NOTE | 2022-09-08 12:46 | PC.NURSE ---
Patient refusing treatment and will be leaving AMA, spoke with daughter regarding patient, states that he has a prescription for 20mg of lasix, unsure is this is the correct dose for patient, may have been increased by provider in [place].
== END 2022-09-08 13:14 | disposition left against medical advice (07) ==
PROVIDERS: Emergency Provider Emergency Medicine Emergency Medical Services; PCP Internal Medicine
DX: R06.00 Dyspnea, unspecified (principal); Z76.0 Encounter for issue of repeat prescription; R06.02 Shortness of breath; F17.210 Nicotine dependence, cigarettes, uncomplicated; E11.9 Type 2 diabetes mellitus without complications; I11.0 Hypertensive heart disease with heart failure; I50.9 Heart failure, unspecified; Z79.899 Other long term (current) drug therapy
CPT/HCPCS: 99282; 99284

== ENCOUNTER 2022-09-10 14:40 | Outpatient (REF) | payer MEDICAID, SELFPAY ==
[2022-09-10 16:07] LABS: MANUAL DIFF FLAG NO
[2022-09-10 16:20] LABS: Basophils Absolute Auto 0.1 X10*3/uL (0.0-0.2); Basophils Percent Auto 0.8 % (0-2); Eosinophils Absolute Auto 0.2 X10*3/uL (0.0-0.4); Hematocrit 45.4 % (42.0-52.0); Hemoglobin 14.3 g/dl (14.0-18.0); Imm Gran Abs Auto 0.02 X10*3/uL (0.00-0.03); Imm Gran Pct Auto 0.3 % (0.0-0.4); Lymphocytes Absolute Auto 1.6 X10*3/uL (1.2-4.9); Lymphocytes Percent Auto 21.3 % (20-40); Mean Corpuscular HGB Conc 31.5 g/dl (31.0-36.0); Mean Corpuscular Hemoglobin 29.1 pg (27.0-33.0); Mean Corpuscular Volume 92.5 fL (80.0-98.0); Mean Platelet Volume 12.3 fL (9.4-12.4); Monocytes Absolute Auto 0.6 X10*3/uL (0.1-1.2); Monocytes Percent Auto 7.3 % (2-11); Neutrophils Absolute Auto 5.1 x10*3/uL (2.0-8.3); Neutrophils Percent Auto 68.3 % (45-73); Platelet Count 234 X10*3/uL (160-400); Red Blood Count 4.91 X10*6/uL (4.60-5.80); Red Cell Distribution Width 14.3 % (11.0-16.0); White Blood Count 7.5 X10*3/uL (4.8-10.8)
[2022-09-10 16:53] LABS: Alanine Aminotransferase 45 U/L (0-40); Albumin Level 3.8 g/dL (3.5-5.0); Alkaline Phosphatase 91 U/L (39-117); Anion Gap 14 (12-20); Aspartate Amino Transferase 28 U/L (5-37); Bilirubin Direct 0.2 mg/dL (0.0-0.5); Bilirubin Total 0.5 mg/dL (0.0-1.0); Blood Urea Nitrogen 25 mg/dL (9-16); Calcium 9.1 mg/dL (8.4-10.2); Carbon Dioxide 31 mmol/L (22-29); Chloride 103 mmol/L (96-108); Cholesterol 187 mg/dL; Estimated Glomerular Filt Rate 52; Glucose Random 133 mg/dL (60-115); HDL Cholesterol 57 mg/dL; LDL Cholesterol Calculated 109 mg/dl; Potassium 4.5 mmol/L (3.3-5.1); Sodium 143 mmol/L (135-145); Total Protein 6.8 g/dL (6.5-8.0); Triglycerides 107 mg/dL
== END 2022-09-10 14:41 | disposition home or self-care (01) ==
LOC: HO.HHCL 14:40
PROVIDERS: Visit Provider Internal Medicine
DX: I50.42 Chronic combined systolic (congestive) and diastolic (congestive) heart failure (principal)
CPT/HCPCS: 36415; 80048; 80061; 80076; 85025

== ENCOUNTER 2022-09-11 15:38 | Outpatient (REF) | payer MEDICAID, SELFPAY ==
[2022-09-11 17:27] LABS: Creatinine Urine 75.88 mg/dL; Microalbum/Creatinine Ratio Ur 17.1 ug/mg cr
== END 2022-09-11 15:39 | disposition home or self-care (01) ==
LOC: HO.HHCLNP 15:38
PROVIDERS: Visit Provider Internal Medicine
DX: I50.42 Chronic combined systolic (congestive) and diastolic (congestive) heart failure (principal)
CPT/HCPCS: 82043